=== PATIENT | male | born 1950 | race Caucasian/White ===

== ENCOUNTER 2017-11-18 18:25 | Emergency (ER) | payer OTHER ==
[2017-11-18] MEDS ORDERED: Eye-Stream Solution ONE (19:04)
[2017-11-18] MEDS ORDERED: Fluor-I-Strip/Ful-Flo OP ONE ×2 (19:04→19:21)
[2017-11-18] MEDS ORDERED: TETRACAINE 0.5% STERI-UNIT SOL OP ONE (19:04)
[2017-11-18] MEDS ORDERED: Erythromycin 3.5 GM OPHTH. OP ONE (19:19)
[2017-11-18] MEDS ORDERED: Eye-Stream Solution OP ONE (19:19)
[2017-11-18] MEDS ORDERED: TETRACAINE 0.5% STERI-UNIT SOL OP STA (19:19)
[2017-11-18] MEDS ORDERED: Adacel Vial IM ONE ×2 (19:19→19:30)
[2017-11-18] MEDS ORDERED: Erythromycin 1 GM ONE (19:27)
--- NOTE | 2017-11-18 19:28 | ERPHSYRPT ---
- History of Present Illness Time Seen by Provider: 11/18/17 19:00 Source: patient Exam Limitations: clinical condition Patient Subjective Stated Complaint: Unknown foreign body in right eye. Triage Nursing Assessment: Pt presents to the ED with complaints of unknown foreign body to right eye. Pt states he was outside in the wind approximately 2 hours ago when he felt something hit his eye. Pt denies other complaints. No redness, drainage, or obvious foreign body noted to eye. No distress noted at this time. Physician History: PATIENT WITH A HISTORY OF HYPERTENSION, CORONARY ARTERY DISEASE, WHILE WALKING OUTSIDE IN THE WIND COMPLAINS OF FOREIGN BODY SENSATION TO RIGHT EYE ASSOCIATED TEARING AND SLIGHT PHOTOPHOBIA. DENIES BLURRED VISION OR DIPLOPIA. Timing/Duration: today Location: right eye Severity: mild Apparent Injury: possibly Associated Symptoms: pain, sensitivity to light Visual Assistive Devices: Glasses Chemical Exposure: No Trauma: No Welding Arc/Tanning Bed Exposure: No Allergies/Adverse Reactions: No Known Drug Allergies Allergy (Verified 05/14/16 03:04) Home Medications: Aspirin 81 gm Chew [Baby Aspirin 81 mg Chew] 81 mg PO DAILY 05/14/16 [ History] Benazepril HCl [Lotensin] 20 mg PO DAILY 05/14/16 [History] Clopidogrel Bisulfate [Plavix] 75 mg PO DAILY 05/14/16 [History] Insulin Aspart [NovoLOG Insulin] 10 unit SQ BID 05/14/16 [History] Insulin Glargine [Lantus Insulin] 50 units SQ DAILY 05/14/16 [History] Metoprolol Tartrate 25 mg [Lopressor 25MG Tab] 25 mg PO BID 05/14/16 [ History] Rosuvastatin Calcium [Crestor] 20 mg PO DAILY 05/14/16 [History] Hx Tetanus, Diphtheria Vaccination/Date Given: No Hx Influenza Vaccination/Date Given: No Hx Pneumococcal Vaccination/Date Given: No Immunizations Up to Date: No - Review of Systems Constitutional: No Fever, No Chills Eyes: Eye Pain, Foreign Body Sensation Ears, Nose, & Throat: No Symptoms Respiratory: No Cough, No Dyspnea Cardiac: No Chest Pain, No Edema, No Syncope Abdominal/Gastrointestinal: No Abdominal Pain, No Nausea, No Vomiting, No Diarrhea Genitourinary Symptoms: No Dysuria Musculoskeletal: No Back Pain, No Neck Pain Skin: No Rash Neurological: No Dizziness, No Focal Weakness, No Sensory Changes Psychological: No Symptoms Endocrine: No Symptoms All Other Systems: Reviewed and Negative - Past Medical History Pertinent Past Medical History: Yes Neurological History: No Pertinent History ENT History: No Pertinent History Cardiac History: Coronary Artery Disease, High Cholesterol, Hypertension, Other Respiratory History: No Pertinent History Endocrine Medical History: Diabetes Type II Musculoskeletal History: No Pertinent History GI Medical History: Polyps History: No Pertinent History Psycho-Social History: No Pertinent History Male Reproductive Disorders: No Pertinent History Other Medical History: HEART CATH 03/24/16, OPEN HEART WITH 6 BYPASSES 04/03/16 - Past Surgical History Past Surgical History: Yes Neuro Surgical History: No Pertinent History Cardiac: No Pertinent History, CABG, Cardiac Catheterization Respiratory: Chest Surgery Gastrointestinal: No Pertinent History, Other Genitourinary: No Pertinent History Musculoskeletal: No Pertinent History Male Surgical History: No Pertinent History Other Surgical History: several colonoscopies - Social History Smoking Status: Former smoker How long have you smoked: 1971 Exposure to second hand smoke: No Drug Use: none Patient Lives Alone: No - Nursing Vital Signs Nursing Vital Signs: Initial Vital Signs Temperature 98.0 F 11/18/17 18:37 Pulse Rate 81 11/18/17 18:37 Respiratory Rate 16 11/18/17 18:37 Blood Pressure 137/70 11/18/17 18:37 O2 Sat by Pulse Oximetry 96 11/18/17 18:37 Pain Scale Pain Intensity 8 - Physical Exam Vision Acuity Right Eye: 20/30 Vision Acuity Left Eye: 20/30 Eye Exam: bilateral eye: normal inspection, PERRL, EOMI Ears, Nose, Throat Exam: normal ENT inspection Respiratory Exam: normal breath sounds Cardiovascular Exam: regular rate/rhythm SpO2: 96 Oxygen Delivery: Room Air Ordered Tests: Medication Summary Generic Name Dose Route Start Last Admin Trade Name Freq PRN Reason Stop Dose Admin Fluorescein Sodium 1 mg 11/18/17 19:21 Owoqa-I-Ytvlu/Ful-Ed OP 11/18/17 19:22 STAT ONE Discontinued Medications Generic Name Dose Route Start Last Admin Trade Name Freq PRN Reason Stop Dose Admin Diphtheria/Tetanus/Acell Pertussis 0.5 ml 11/18/17 19:19 Adacel Vial IM 11/18/17 19:20 .ONCE ONE Erythromycin 3.5 gm 11/18/17 19:19 Erythromycin 3.5 Gm Ophth. OP 11/18/17 19:20 STAT ONE Eye Irrigation Solution Confirm 11/18/17 19:04 Eye-Stream Solution Administered 11/18/17 19:05 Dose 30 ml .ROUTE .STK-MED ONE Eye Irrigation Solution 15 ml 11/18/17 19:19 Eye-Stream Solution OP 11/18/17 19:20 STAT ONE Fluorescein Sodium Confirm 11/18/17 19:04 Qyszf-Q-Hoszm/Ful-Ed Administered 11/18/17 19:05 Dose 1 mg OP .STK-MED ONE Tetracaine HCl Confirm 11/18/17 19:04 Tetracaine 0.5% Steri-Unit Iona Administered 11/18/17 19:05 Dose 4 ml OP .STK-MED ONE Tetracaine HCl 4 ml 11/18/17 19:19 Tetracaine 0.5% Steri-Unit Iona OP 11/18/17 19:20 STAT STA - Progress Progress: improved Progress Note: 11/18/17 19:25 APPLICATION TETRACAINE OPHT SOLUTION 3GTTS OD, FLUORESCEIN TO OD, FOREIGN BODY NOTED AT 9-0CLOCK, NO CHEMOSIS OR HYPHEMA, EVERSION OF UPPER EYE LID WITH COTTON SWAB WITH NO EVIDENCE OF FOREIGN BODY, COTTON SWAB FOR REMOVAL FOREIGN BODY OF CORNEA, APPLICATION ERYTHROMYCIN OPHTHALMIC OINTMENT TO OD, ADACEL 0.5ML IM Counseled pt/family regarding: diagnosis, need for follow-up - Departure Time of Disposition: 19:35 Departure Disposition: Home Clinical Impression: REMOVAL FOREIGN BODY RIGHT EYE, CORNEAL ABRASION RIGHT EYE Condition: Stable Critical Care Time: No Referrals: JAROD LEWIS [Primary Care Provider] - Additional Instructions: APPLY ERYTHROMYCIN OPHTHALMIC OINTMENT TO RIGHT EYE 4 TIMES DAILY FOR 5 DAYS. NORCO 5/325 EVERY 4-6 HOURS NEEDED FOR PAIN DISCOMFORT. 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 Prescriptions: Hydrocodone/Acetaminophen [[place] 5-325 Tablet] 1 each PO Q4H PRN PRN #10 tablet MDD 4 PRN Reason: Pain Erythromycin Base 3.5 gm [Erythromycin 3.5 GM OPHTH.] 3.5 gm OP QID #3.5 tube
[2017-11-18 19:53] VITALS: BP 128/65; PULSE 75; O2SAT 95
== END 2017-11-18 19:52 | disposition home or self-care (01) ==
LOC: ED 18:25
DX: T15.01XA Foreign body in cornea, right eye, initial encounter (principal); E11.9 Type 2 diabetes mellitus without complications; Z79.4 Long term (current) use of insulin; Z79.01 Long term (current) use of anticoagulants; Z79.82 Long term (current) use of aspirin; Z79.899 Other long term (current) drug therapy
CPT/HCPCS: 90471; 90715; 99283; 99284; A9270-GY

== ENCOUNTER 2018-01-24 10:16 | Observation (INO) | payer OTHER ==
[2018-01-24] MEDS ORDERED: NITRO-BID 2% UD PACKETS TOP ONE (10:46)
[2018-01-24] MEDS ORDERED: BABY ASPIRIN 81 MG CHEW PO ONE (10:46)
[2018-01-24] MEDS ORDERED: NITRO-BID 2% UD PACKETS ONE (10:58)
[2018-01-24] MEDS ORDERED: BABY ASPIRIN 81 MG CHEW ONE (10:58)
[2018-01-24] MEDS ORDERED: Sodium Chloride 0.9% 1000 ML 1,000 ML ONE (10:58)
[2018-01-24] MEDS ORDERED: Sodium Chloride 0.9% 1000 ML 1,000 ML IV SCH ×2 (11:00→15:15)
[2018-01-24 11:04] LABS: BASOPHIL % 0.6 % (0.0-0.4); Basophil (Absolute #) 0.06 (0-0.4); Eosinophil % 4.7 % (0.00-5.0); Eosinophil (Absolute #) 0.46 (0-0.5); Granulocyte Absolute (ANC) 5.35 (1.4-6.9); Granulocytes % 54.5 % (36.0-66.0); Hematocrit 42.1 % (42-50); Hemoglobin 14.6 gm/dl (12.5-18.0); Lymphocyte (Absolute #) 3.15 (1.0-4.6); Lymphocytes % 32.1 % (24.0-44.0); Mean Cell Volume 92.7 fl (78-100); Mean Corpuscular Hemoglobin 32.2 pg (26-32); Mean Corpuscular Hgb Concent. 34.7 g/dl (32-36); Mean Platelet Volume 11.1 fl (6-9.5); Monocytes % 8.1 % (0.0-12.0); Platelet Count 193 K/mm3 (150-450); Red Blood Count 4.54 M/mm3 (4.1-5.6); Red Cell Distribution Width 12.8 % (11.5-14.0); White Blood Count 9.8 K/mm3 (4.0-10.5)
--- NOTE | 2018-01-24 11:08 | ERPHSYRPT ---
- History of Present Illness Time Seen by Provider: 01/24/18 10:35 Historian: patient Exam Limitations: clinical condition Patient Subjective Stated Complaint: pt reports right sided chest pain increasing with cough or bending over beginning yesterday-deneis diaphoresis denies n/v-states he took a nitro with no relief-cough is nonproductive- persistant for a few months Triage Nursing Assessment: pt pink warm and iwq-hkfiy-zhzffssdza with no difficutly to er room-resp nonlabored-lungs clear-right radial pulse regular and strong Physician History: PATIENT WITH A HISTORY OF TYPE 2 DIABETES, MYOCARDIAL INFARCTION AND CORONARY ARTERY BYPASS X 6 VESSEL 1 YEAR AGO COMPLAINS OF PRODUCTIVE COUGH X 3 MONTHS , ONSET OF RIGHT STERNAL CHEST PAINS UPON COUGHING, MOTION OF TORSO AND INSPIRATION. DENIES FEVER, CHILLS, DYSPNEA, RADIATION OF PAIN TO JAW, ARMS OR BACK. DENIES DIAPHORESIS, PALPITATIONS. Timing/Duration: yesterday Activities at Onset: activity Quality: sharpness, stabbing Location: substernal Chest Pain Radiation: no radiation Severity of Pain-Max: moderate Severity of Pain-Current: moderate Modifying Factors: Improves With: coughing, change in position Associated Symptoms: hurts to breathe (HURTS TO COUGH) Prior Chest Pain/Cardiac Workup: heart attack (CABG 2017) Nitro Today/Relief: no nitro taken today, 0.4 mg x 1 Aspirin Treatment Today: 81 mg x 4, provided by ED Allergies/Adverse Reactions: No Known Drug Allergies Allergy (Verified 01/24/18 10:30) Home Medications: Aspirin 81 gm Chew [Baby Aspirin 81 mg Chew] 81 mg PO DAILY 05/14/16 [ History] Benazepril HCl [Lotensin] 20 mg PO DAILY 05/14/16 [History] Insulin Aspart [NovoLOG Insulin] 10 unit SQ BID 05/14/16 [History] Metoprolol Tartrate 25 mg [Lopressor 25MG Tab] 25 mg PO BID 05/14/16 [ History] Rosuvastatin Calcium [Crestor] 20 mg PO DAILY 05/14/16 [History] Furosemide 40 mg PO DAILY 01/24/18 [History] Gabapentin 300 mg PO DAILY 01/24/18 [History] Insulin Detemir [Levemir] 0 units IN UD 01/24/18 [History] Metformin HCl 500 mg PO DAILY 01/24/18 [History] Potassium Chloride [Klor-Con Sprinkle] 8 mg PO DAILY 01/24/18 [History] Hx Tetanus, Diphtheria Vaccination/Date Given: Yes Hx Influenza Vaccination/Date Given: No Hx Pneumococcal Vaccination/Date Given: No Immunizations Up to Date: Yes - Review of Systems Constitutional: No Fever, No Chills Eyes: No Symptoms Ears, Nose, & Throat: No Symptoms Respiratory: Cough, No Dyspnea Cardiac: Chest Pain, No Edema, No Syncope Abdominal/Gastrointestinal: No Symptoms, No Abdominal Pain, No Nausea, No Vomiting, No Diarrhea Genitourinary Symptoms: No Symptoms, No Dysuria Musculoskeletal: No Symptoms, No Back Pain, No Neck Pain Skin: No Symptoms, No Rash Neurological: No Dizziness, No Focal Weakness, No Sensory Changes Psychological: No Symptoms Endocrine: No Symptoms All Other Systems: Reviewed and Negative - Past Medical History Pertinent Past Medical History: Yes Neurological History: No Pertinent History ENT History: No Pertinent History Cardiac History: Coronary Artery Disease, High Cholesterol, Hypertension, Other Respiratory History: No Pertinent History Endocrine Medical History: Diabetes Type II Musculoskeletal History: No Pertinent History GI Medical History: Polyps History: No Pertinent History Psycho-Social History: No Pertinent History Male Reproductive Disorders: No Pertinent History Other Medical History: HEART CATH 03/24/16, OPEN HEART WITH 6 BYPASSES 04/03/16 - Past Surgical History Past Surgical History: Yes Neuro Surgical History: No Pertinent History Cardiac: No Pertinent History, CABG, Cardiac Catheterization Respiratory: Chest Surgery Gastrointestinal: No Pertinent History, Other Genitourinary: No Pertinent History Musculoskeletal: No Pertinent History Male Surgical History: No Pertinent History Other Surgical History: several colonoscopies - Social History Smoking Status: Former smoker How long have you smoked: 1971 Exposure to second hand smoke: No Drug Use: none Patient Lives Alone: No - Nursing Vital Signs Nursing Vital Signs: Initial Vital Signs Temperature 99.0 F 01/24/18 10:25 Pulse Rate 72 01/24/18 10:25 Respiratory Rate 18 01/24/18 10:25 Blood Pressure 134/73 01/24/18 10:25 O2 Sat by Pulse Oximetry 97 01/24/18 10:25 Pain Scale Pain Intensity 0 - Physical Exam General Appearance: no apparent distress, alert Eye Exam: PERRL/EOMI, eyes nml inspection Ears, Nose, Throat Exam: normal ENT inspection, moist mucous membranes Neck Exam: normal inspection, non-tender, supple, full range of motion Respiratory Exam: normal breath sounds, chest tenderness (RIGHT MEDIAL STERUM T4 -T6), lungs clear, No respiratory distress Cardiovascular Exam: regular rate/rhythm, normal heart sounds Gastrointestinal/Abdomen Exam: soft, normal bowel sounds, No tenderness, No mass Back Exam: normal inspection, No CVA tenderness, No vertebral tenderness Extremity Exam: normal inspection, normal range of motion, pedal edema (+1 PRETIBIAL) Neurologic Exam: alert, oriented x 3, cooperative, normal mood/affect, sensation nml, No motor deficits Skin Exam: normal color, warm, dry SpO2 Interpretation: normal SpO2: 97 Oxygen Delivery: Room Air - Course EKG Interpreted by Me: RATE, Sinus Rhythm, NORMAL AXIS, Right Bundle Branch Block - Radiology Exams Chest X-ray Interpretation: Interpreted by me, Negative, No Infiltrates Ordered Tests: Active Orders 24 hr Category Date Time Status Edging Supervisor STAT Care 01/24/18 10:46 Active EKG-ER Only STAT Care 01/24/18 10:46 Active Oxygen-ED Only NASAL CANNULA 2 lpm Care 01/24/18 10:46 Active CHEST 2 VIEWS (PA AND LAT) Stat Exams 01/24/18 12:01 Taken BLOOD CULTURE Stat Lab 01/24/18 10:56 Ordered CBC W DIFF Stat Lab 01/24/18 10:56 Completed CMP Stat Lab 01/24/18 10:56 Completed D-DIMER QUANTITATION Stat Lab 01/24/18 10:56 Completed PROTIME WITH INR Stat Lab 01/24/18 10:56 Completed TROPONIN Q3H Lab 01/24/18 10:56 Completed TROPONIN Q3H Lab 01/24/18 14:00 Ordered TROPONIN Q3H Lab 01/24/18 17:00 Ordered TROPONIN Q3H Lab 01/24/18 20:00 Ordered TROPONIN Q3H Lab 01/24/18 23:00 Ordered Transfer Order Routine Transfer 01/24/18 Ordered Medication Summary Generic Name Dose Route Start Last Admin Trade Name Freq PRN Reason Stop Dose Admin Sodium Chloride 1,000 mls @ 50 mls/hr 01/24/18 11:00 01/24/18 11:01 Sodium Chloride 0.9% 1000 Ml IV 02/23/18 10:59 50 mls/hr .Q20H THEA Administration Discontinued Medications Generic Name Dose Route Start Last Admin Trade Name Uriah PRN Reason Stop Dose Admin Aspirin 324 mg 01/24/18 10:46 01/24/18 11:00 Baby Aspirin 81 Mg Chew PO 01/24/18 10:47 324 mg STAT ONE Administration Aspirin Confirm 01/24/18 10:58 Baby Aspirin 81 Mg Chew Administered 01/24/18 10:59 Dose 324 mg .ROUTE .STK-MED ONE Ceftriaxone Sodium/Dextrose 1 g in 50 mls @ 100 mls/hr 01/24/18 12:47 12:53 Rocephin 1 Gm-D5w 50 Ml Bag IV 01/24/18 13:16 200 mls/hr STAT STA 200 mls/hr Administration Ceftriaxone Sodium/Dextrose Confirm 01/24/18 12:50 Rocephin 1 Gm-D5w 50 Ml Bag Administered 01/24/18 12:51 Dose 1 g in 50 mls @ ud IV .STK-MED ONE Nitroglycerin 1 gm 01/24/18 10:46 01/24/18 11:01 Nitro-Bid 2% Ud Packets TOP 01/24/18 10:47 1 gm STAT ONE Administration Nitroglycerin Confirm 01/24/18 10:58 Nitro-Bid 2% Ud Packets Administered 01/24/18 10:59 Dose 1 gm .ROUTE .STK-MED ONE Lab/Rad Data: Laboratory Result Diagrams 01/24/18 10:56 01/24/18 10:56 Laboratory Results 01/24/18 01/24/18 01/24/18 Range/Units 10:56 10:56 10:56 WBC (4.0-10.5) K/mm3 RBC (4.1-5.6) M/mm3 Hgb (12.5-18.0) gm/dl Hct (42-50) % MCV (78-100) fl MCH (26-32) pg MCHC (32-36) g/dl RDW (11.5-14.0) % Plt Count (150-450) K/mm3 MPV (6-9.5) fl Gran % (36.0-66.0) % Eos # (Auto) (0-0.5) Absolute Lymphs (auto) (1.0-4.6) Absolute Monos (auto) (0.0-1.3) Lymphocytes % (24.0-44.0) % Monocytes % (0.0-12.0) % Eosinophils % (0.00-5.0) % Basophils % (0.0-0.4) % Absolute Granulocytes (1.4-6.9) Basophils # (0-0.4) PT 11.4 (8.83-12.87) SECONDS INR 0.98 (0.8-3.0) D-Dimer 499 (215-500) ng/mL Sodium 134 L (137-145) mmol/L Potassium 4.5 (3.5-5.1) mmol/L Chloride 101 (98-107) mmol/L Carbon Dioxide 24 (22-30) mmol/L Anion Gap 13.8 (5-15) MEQ/L BUN 21 H (9-20) mg/dL Creatinine 0.93 (0.66-1.25) mg/dL Estimated GFR > 60.0 ML/MIN Glucose 232 H (74-106) mg/dL Calcium 9.7 (8.4-10.2) mg/dL Total Bilirubin 0.50 (0.2-1.3) mg/dL AST 26 (17-59) U/L ALT 23 (0-50) U/L Alkaline Phosphatase 66 (38-126) U/L Troponin I < 0.012 (0.000-0.034) ng/mL Serum Total Protein 7.2 (6.3-8.2) g/dL Albumin 4.1 (3.5-5.0) g/dL 01/24/18 Range/Units 10:56 WBC 9.8 (4.0-10.5) K/mm3 RBC 4.54 (4.1-5.6) M/mm3 Hgb 14.6 (12.5-18.0) gm/dl Hct 42.1 (42-50) % MCV 92.7 (78-100) fl MCH 32.2 H (26-32) pg MCHC 34.7 (32-36) g/dl RDW 12.8 (11.5-14.0) % Plt Count 193 (150-450) K/mm3 MPV 11.1 H (6-9.5) fl Gran % 54.5 (36.0-66.0) % Eos # (Auto) 0.46 (0-0.5) Absolute Lymphs (auto) 3.15 (1.0-4.6) Absolute Monos (auto) 0.80 (0.0-1.3) Lymphocytes % 32.1 (24.0-44.0) % Monocytes % 8.1 (0.0-12.0) % Eosinophils % 4.7 (0.00-5.0) % Basophils % 0.6 (0.0-0.4) % Absolute Granulocytes 5.35 (1.4-6.9) Basophils # 0.06 (0-0.4) PT (8.83-12.87) SECONDS INR (0.8-3.0) D-Dimer (215-500) ng/mL Sodium (137-145) mmol/L Potassium (3.5-5.1) mmol/L Chloride (98-107) mmol/L Carbon Dioxide (22-30) mmol/L Anion Gap (5-15) MEQ/L BUN (9-20) mg/dL Creatinine (0.66-1.25) mg/dL Estimated GFR ML/MIN Glucose (74-106) mg/dL Calcium (8.4-10.2) mg/dL Total Bilirubin (0.2-1.3) mg/dL AST (17-59) U/L ALT (0-50) U/L Alkaline Phosphatase (38-126) U/L Troponin I (0.000-0.034) ng/mL Serum Total Protein (6.3-8.2) g/dL Albumin (3.5-5.0) g/dL - Progress Progress Note: 01/24/18 11:15 ADMINISTERED 4 BABY ASPIRIN, NITROPASTE 1" ANTERIOR CHEST WALL, AFTER 2 SETS OF BLOOD CULTURES ADMINISTERED ROCEPHIN 1GM IVPB 01/24/18 13:44 Discussed with : Anat (DISCUSSED DR LEWIS AT 1320 FOR OBSERVATION) - Departure Time of Disposition: 13:50 Departure Disposition: Observation Clinical Impression: ATYPICAL CHEST PAIN, ACUTE BRONCHITIS Condition: Stable Critical Care Time: No Referrals: JAROD LEWIS [Primary Care Provider] -
[2018-01-24 11:24] LABS: INR 0.98 (0.8-3.0)
[2018-01-24 11:28] LABS: ALBUMIN 4.1 g/dL (3.5-5.0); ALKALINE PHOSPHATASE 66 U/L (38-126); ANION GAP 13.8 MEQ/L (5-15); BLOOD UREA NITROGEN 21 mg/dL (9-20); CHLORIDE 101 mmol/L (98-107); Calcium 9.7 mg/dL (8.4-10.2); Carbon Dioxide 24 mmol/L (22-30); Creatinine 1 0.93 mg/dL (0.66-1.25); Glucose 232 mg/dL (74-106); Potassium 4.5 mmol/L (3.5-5.1); SGOT/AST 26 U/L (17-59); SGPT/ALT 23 U/L (0-50); SODIUM 134 mmol/L (137-145); Total Protein 7.2 g/dL (6.3-8.2)
[2018-01-24] MEDS ORDERED: ROCEPHIN 1 Gm-D5w 50 ml Bag** 1 G/50 ML IVPB IV STA (12:47)
[2018-01-24] MEDS ORDERED: ROCEPHIN 1 Gm-D5w 50 ml Bag** 1 G/50 ML IVPB IV ONE (12:50)
[2018-01-24] MEDS ORDERED: Zofran 4 MG/2 ML VIAL IV PRN (14:38)
[2018-01-24] MEDS ORDERED: MAALOX ES 30 ML UNIT DOSE PO PRN (14:38)
[2018-01-24] MEDS ORDERED: Senokot-S Tablet PO PRN (14:38)
[2018-01-24] MEDS ORDERED: MILK OF MAGNESIA 30 ML PO PRN (14:38)
[2018-01-24] MEDS ORDERED: TYLENOL 325 MG PO PRN (14:38)
[2018-01-24] MEDS ORDERED: Zithromax 500 MG/ 250 ML NaCl Premix 500 MG/250 ML IVPB IV SCH (15:00)
[2018-01-24] MEDS ORDERED: Lantus Insulin ONE (17:39)
[2018-01-24] MEDS ORDERED: Glucophage 500 MG ONE (17:39)
[2018-01-24] MEDS ORDERED: Lantus Insulin SQ ONE (17:39)
[2018-01-24] MEDS: Glucophage 500 MG PO SCH ×2 (17:45→18:10)
[2018-01-24] MEDS ORDERED: NovoLOG Insulin SQ SCH (21:00)
--- NOTE | 2018-01-24 21:25 | XRAY ---
Indication: Cough and pain. Comparison: May 14, 2016. PA/lateral chest remains clear again with previous CABG surgery. Heart is not enlarged. Bony thorax intact. Impression: Stable nonacute chest.
[2018-01-24] MEDS ORDERED: Lasix 40 MG ONE (21:34)
[2018-01-24] MEDS ORDERED: NEURONTIN 300 MG PO SCH (22:00)
[2018-01-24] MEDS ORDERED: Klor Con 10 MEQ PO SCH (22:00)
[2018-01-24] MEDS ORDERED: POTASSIUM CHLORIDE 20 MEQ POWDER FOR ORAL SOL PO SCH (22:00)
[2018-01-24] MEDS ORDERED: Lopressor 25MG Tab PO SCH (22:00)
[2018-01-24] MEDS ORDERED: Lasix 40 MG PO SCH (22:00)
[2018-01-24] MEDS ORDERED: Nitrostat 0.4 MG Tablet SL PRN (22:32)
[2018-01-25 06:04] LABS: Risk Ratio 4.9
[2018-01-25 07:32] VITALS: BP 103/65; PULSE 75; O2SAT 95
[2018-01-25] MEDS: Glucophage 500 MG PO SCH (07:44)
[2018-01-25] MEDS ORDERED: NovoLOG Insulin SQ SCH ×3 (08:00→16:00)
[2018-01-25] MEDS ORDERED: Glucophage 500 MG PO SCH (08:00)
--- NOTE | 2018-01-25 08:34 | PCM.DCORD ---
- Discharge Discharge Date: 01/25/18 Prescriptions: New Amoxicillin/Potassium Clav [Augmentin 875 mg (Amox Tr-K Clv 875-125 mg)] 1 each PO BID 10 Days #20 tablet Continue Benazepril HCl [Lotensin] 20 mg PO DAILY Metoprolol Tartrate 25 mg [Lopressor 25MG Tab] 25 mg PO BID Insulin Aspart [NovoLOG Insulin] 20 unit SQ BID Rosuvastatin Calcium [Crestor] 40 mg PO DAILY Aspirin 81 gm Chew [Baby Aspirin 81 mg Chew] 81 mg PO DAILY Potassium Chloride [Klor-Con Sprinkle] 8 mg PO TID Metformin HCl 500 mg PO BID Insulin Detemir [Levemir] 70 units IN UD Gabapentin 300 mg PO TID Furosemide 40 mg PO DAILY Follow up with: JAROD LEWIS [Primary Care Provider] - 1 Week
[2018-01-25] MEDS ORDERED: ZOCOR 20MG PO SCH (10:00)
[2018-01-25] MEDS ORDERED: BABY ASPIRIN 81 MG CHEW PO SCH (10:00)
[2018-01-25] MEDS ORDERED: Klor Con 10 MEQ PO SCH (10:00)
[2018-01-25] MEDS ORDERED: ROCEPHIN 1 Gm-D5w 50 ml Bag** 1 G/50 ML IVPB IV SCH (10:00)
[2018-01-25] MEDS ORDERED: Lotensin 10 MG PO SCH (10:00)
[2018-01-25] MEDS ORDERED: Ecotrin 325 MG PO SCH (10:00)
[2018-01-25] MEDS ORDERED: NEURONTIN 300 MG PO SCH (10:00)
[2018-01-25] MEDS ORDERED: Lantus Insulin SQ SCH (10:00)
[2018-01-25] MEDS ORDERED: Lasix 40 MG PO SCH ×2 (10:00)
[2018-01-25] MEDS ORDERED: ECOTRIN 81 MG PO SCH (10:00)
--- NOTE | 2018-01-26 15:02 | DS ---
DISCHARGE DIAGNOSES: 1) CHEST WALL PAIN. 2) CORONARY ARTERY DISEASE. HISTORY: The patient is a 67 year-old white male patient who reported to the emergency room with complaints of sharp-type chest pain. He reports that it does not feel like it is his heart but he was concerned. He had been having somewhat of a cough that was minimally productive. He reports he has been rolling around underneath a dump truck trying to get it fixed. He feels that he may have gotten something worked up that way. PAST MEDICAL/SURGICAL HISTORY: Again significant for coronary artery disease with previous coronary artery bypass grafting. He had hyperlipidemia, hypertension, colon polyps and colonoscopy. HOME MEDICATIONS: Currently include aspirin 81 mg a day, Lotensin 20 mg a day, NovoLog insulin 10 units b.i.d. and Levemir insulin 20 in the evening and metoprolol 25 mg b.i.d., Crestor 20 mg a day, Lasix 40 mg daily, gabapentin 300 mg, metformin 500 mg b.i.d. and potassium 8 mEq daily. ALLERGIES: NKDA. PHYSICAL EXAMINATION: Revealed a well nourished, well developed 67 year-old white male patient currently in no distress and denying any pain at the present time. His vital signs on admission showed temperature 99.0F, pulse 72, respiratory rate 18, blood pressure 134/73. O2 saturation 97% on room air. HEENT: Normocephalic, atraumatic. Pupils equal round reactive to light. Extraocular movements intact. Oropharynx is pink and moist. NECK: Supple without lymphadenopathy, thyromegaly or JVD. CHEST: Clear to auscultation with good air movement bilaterally. HEART: Regular rate and rhythm without murmurs, rubs or gallops. ABDOMEN: Soft. No palpable masses. EXTREMITIES: Without clubbing, cyanosis or edema. NEUROLOGIC: The patient is alert and oriented x3. No focal deficits were noted. LAB DATA AND TESTS: Revealed several troponins all less than 0.012. His lipid panel showed HDL 27, LDL 62. His metabolic panel showed nonfasting sugar 232, BUN 21, creatinine 0.93. Electrolytes were normal. Liver enzymes were normal. White blood cell count 9,800, hemoglobin 14.6, PLT count 193,000. D-dimer 499. Chest x-ray was stable and nonacute. EKG showed right bundle branch block pattern, left axis deviation, no acute changes were noted. HOSPITAL COURSE: The patient being admitted to the hospital for monitoring on telemetry, now pain free and having ruled out for myocardial infarction he was felt to be ready for discharge home again. Due to the productive cough and slight chest discomfort he received antibiotics while he was in the hospital of Rocephin and Zithromax and he will be given Augmentin to take home with him with follow up instructions to follow up in the office in one week.
--- NOTE | 2018-01-28 11:18 | ECHO ---
Transthoracic echocardiographic examination and color Doppler was done on 01/25/2018. INDICATION: Chest pain, history of myocardial infarction, history of coronary artery bypass surgery. IMPRESSION: 1) NO REGIONAL WALL MOTION ABNORMALITY. ESTIMATED GLOBAL LEFT VENTRICULAR EJECTION FRACTION 60%. 2) MILD MITRAL REGURGITATION. 3) MILD TRICUSPID REGURGITATION. RIGHT VENTRICULAR SYSTOLIC PRESSURE OF 18 MM OF MERCURY. 4) TRACE PULMONIC INSUFFICIENCY. 5) LEFT ATRIAL ENLARGEMENT. The left ventricle is visualized and demonstrated adequate motion of all the segments. Estimated global left ventricular ejection fraction is 60%. The left ventricular wall thickness is normal. The mitral valve is seen and this opens adequately. There is mild mitral regurgitation. Left atrium is mildly enlarged. The aortic valve is sclerotic. The right side chambers are normal. There is mild tricuspid regurgitation. Right ventricular systolic pressure of 18 mm of Mercury. There is also mild pulmonic insufficiency.
== END 2018-01-25 09:35 | disposition home or self-care (01) ==
LOC: ED 10:16 → MED SURG 14:20
PROVIDERS: ADMIT Family Medicine; ATTEND Family Medicine
DX: R07.89 Other chest pain (principal)
CPT/HCPCS: 36000; 36415; 71046; 80053; 80061; 83721; 84484; 85025; 85379; 85610; 87040; 93005; 93041; 93268; 93306; 96360; 96365; 99285; J0456; J0696; A9270-GY; G0378

== ENCOUNTER 2019-01-08 01:15 | Emergency (ER) | payer OTHER ==
[2019-01-08] MEDS ORDERED: ANTIVERT 25 MG PO ONE (01:54)
--- NOTE | 2019-01-08 01:55 | ERPHSYRPT ---
- History of Present Illness Time Seen by Provider: 01/08/19 01:45 Source: patient Exam Limitations: clinical condition Patient Subjective Stated Complaint: Dizziness Triage Nursing Assessment: Patient ambulated back to ED and transferred self to bed. Patient A+O X 3. Patient's skin pink, warm and dry. Patient complains of dizziness for since this am. Patient states the dizziness has gotten worse as the day went along. Patient states he felt like he was going to "Pass out" Patient's lungs clear a/p carolyn. Heart tones audible. Patient denies pain or discomfort. Physician History: PATIENT WITH A HISTORY OF TYPE 2 DIABETES, MYOCARDIAL INFARCTION, HYPERTENSION, PREVIOUS CORONARY ARTERY BYPASS GRAFT X 6 COMPLAINS OF ONSET OF DIZZINESS 3 HOURS PREVIOUS TO ARRIVAL, EXACERBATED UPON MOTION OF HEAD. DENIES HEADACHE, BLURRED VISION, SLURRED SPEECH, UNSTEADY GAIT, FOCAL NUMBNESS, TINGLING OR WEAKNESS IN EXTREMITIES. STATES THE ROOM SPINNING UPON OCCASION. Timing/Duration: today Severity: moderate Character of Deficits: none Deficits: no difficulties Baseline/Normal Cognition: alert oriented x 3 Current Cognition: alert oriented x 3 Baseline Gait: walks w/o assistance Allergies/Adverse Reactions: No Known Drug Allergies Allergy (Verified 01/08/19 01:35) Home Medications: Aspirin 81 gm Chew [Baby Aspirin 81 mg Chew] 81 mg PO DAILY 05/14/16 [ History] Benazepril HCl [Lotensin] 20 mg PO DAILY 05/14/16 [History] Insulin Aspart [NovoLOG Insulin] 20 unit SQ BID 05/14/16 [History] Metoprolol Tartrate 25 mg [Lopressor 25MG Tab] 25 mg PO BID 05/14/16 [ History] Rosuvastatin Calcium [Crestor] 40 mg PO DAILY 05/14/16 [History] Furosemide 40 mg PO DAILY 01/24/18 [History] Gabapentin 300 mg PO TID 01/24/18 [History] Insulin Detemir [Levemir] 70 units IN UD 01/24/18 [History] Metformin HCl 500 mg PO BID 01/24/18 [History] Potassium Chloride [Klor-Con Sprinkle] 8 mg PO TID 01/24/18 [History] Hx Tetanus, Diphtheria Vaccination/Date Given: Yes Hx Influenza Vaccination/Date Given: Yes Hx Pneumococcal Vaccination/Date Given: Yes Immunizations Up to Date: Yes - Review of Systems Constitutional: No Fever, No Chills Eyes: No Symptoms Ears, Nose, & Throat: No Symptoms Respiratory: No Symptoms, No Cough, No Dyspnea Cardiac: No Symptoms, Orthopnea, No Chest Pain, No Edema, No Syncope Abdominal/Gastrointestinal: No Abdominal Pain, No Nausea, No Vomiting, No Diarrhea Genitourinary Symptoms: No Symptoms, No Dysuria Musculoskeletal: No Symptoms, No Back Pain, No Neck Pain Skin: No Symptoms, No Rash Neurological: Dizziness, No Focal Weakness, No Sensory Changes Psychological: No Symptoms Endocrine: No Symptoms All Other Systems: Reviewed and Negative - Past Medical History Pertinent Past Medical History: Yes Neurological History: No Pertinent History ENT History: No Pertinent History Cardiac History: Coronary Artery Disease, High Cholesterol, Hypertension, Myocardial Infarction (ND), Other Respiratory History: No Pertinent History Endocrine Medical History: Diabetes Type II Musculoskeletal History: No Pertinent History GI Medical History: Polyps History: No Pertinent History Psycho-Social History: No Pertinent History Male Reproductive Disorders: No Pertinent History Other Medical History: HEART CATH 03/24/16, OPEN HEART WITH 6 BYPASSES 04/03/16 - Past Surgical History Past Surgical History: Yes Neuro Surgical History: No Pertinent History Cardiac: No Pertinent History, CABG, Cardiac Catheterization Respiratory: Chest Surgery Gastrointestinal: No Pertinent History, Other Genitourinary: No Pertinent History Musculoskeletal: No Pertinent History Male Surgical History: No Pertinent History Other Surgical History: several colonoscopies - Social History Smoking Status: Former smoker How long have you smoked: 1971 Exposure to second hand smoke: Yes Drug Use: none Patient Lives Alone: No - Nursing Vital Signs Nursing Vital Signs: Initial Vital Signs Pulse Rate 77 01/08/19 01:35 Respiratory Rate 18 01/08/19 01:35 Blood Pressure 150/78 01/08/19 01:35 O2 Sat by Pulse Oximetry 95 01/08/19 01:35 Pain Scale Pain Intensity 0 - [place] Coma Scale Best Eye Response (Monse): (4) open spontaneously Best Verbal Response (Monse): (5) oriented Best Motor Response ([place]): (6) obeys commands Monse Total: 15 - Physical Exam General Appearance: no apparent distress, alert Eye Exam: bilateral eye: PERRL, EOMI Ears, Nose, Throat Exam: normal ENT inspection, moist mucous membranes Neck Exam: normal inspection, non-tender, supple Respiratory: normal breath sounds, lungs clear, airway intact, No respiratory distress Cardiovascular: regular rate/rhythm, No edema Gastrointestinal: soft, No tenderness, No distention Back Exam: normal inspection Extremity Exam: normal inspection, No pedal edema Peripheral Pulses: carotid (R): 2+, carotid (L): 2+, femoral (R): 2+, femoral (L ): 2+, dorsalis-pedis (R): 2+, dorsalis-pedis (L): 2+ Mental Status: alert, oriented x 3 wrapper stemmer hand Exam: tongue midline Coordination/Gait: normal finger to nose, normal gait DTR: bicep (R): 2+, bicep (L): 2+, tricep (R): 2+, tricep (L): 2+, knee (R): 2+ , knee (L): 2+, ankle (R): 2+, ankle (L): 2+ Skin Exam: normal color, warm, dry, No rash SpO2 Interpretation: normal SpO2: 95 Ordered Tests: Active Orders 24 hr Category Date Time Status EKG-ER Only STAT Care 01/08/19 01:52 Active IV Insertion STAT Care 01/08/19 01:52 Active Orthostatic Vital Signs STAT Care 01/08/19 01:52 Active CHEST 1 VIEW (PORTABLE) Stat Exams 01/08/19 01:52 Taken HEAD WITHOUT CONTRAST [CT] Stat Exams 01/08/19 01:52 Taken BMP Stat Lab 01/08/19 02:14 Completed CBC W DIFF Stat Lab 01/08/19 02:14 Completed MAGNESIUM Stat Lab 01/08/19 02:14 Completed Manual Differential NC Stat Lab 01/08/19 02:14 Completed TROPONIN Q3H Lab 01/08/19 02:14 Received TROPONIN Q3H Lab 01/08/19 05:00 Ordered TROPONIN Q3H Lab 01/08/19 08:00 Ordered TROPONIN Q3H Lab 01/08/19 11:00 Ordered TROPONIN Q3H Lab 01/08/19 14:00 Ordered UA W/RFX UR CULTURE Stat Lab 01/08/19 01:52 Ordered Medication Summary Generic Name Dose Route Start Last Admin Trade Name Freq PRN Reason Stop Dose Admin Sodium Chloride 1,000 mls @ 100 mls/hr 01/08/19 02:00 Sodium Chloride 0.9% 1000 Ml IV 02/07/19 01:59 .Q10H THEA Discontinued Medications Generic Name Dose Route Start Last Admin Trade Name Uriah PRN Reason Stop Dose Admin Meclizine HCl 25 mg 01/08/19 01:54 Antivert 25 Mg PO 01/08/19 01:55 STAT ONE Meclizine HCl Confirm 01/08/19 02:33 Antivert 25 Mg Administered 01/08/19 02:34 Dose 25 mg .ROUTE .STK-MED ONE Lab/Rad Data: Laboratory Result Diagrams 01/08/19 02:14 01/08/19 02:14 Laboratory Results 01/08/19 01/08/19 Range/Units 02:14 02:14 WBC 9.0 (4.0-10.5) K/mm3 RBC 4.27 (4.1-5.6) M/mm3 Hgb 13.5 (12.5-18.0) gm/dl Hct 40.4 L (42-50) % MCV 94.6 (78-100) fl MCH 31.6 (26-32) pg MCHC 33.4 (32-36) g/dl RDW 12.4 (11.5-14.0) % Plt Count 193 (150-450) K/mm3 MPV 11.0 H (6-9.5) fl Sodium 138 (137-145) mmol/L Potassium 4.1 (3.5-5.1) mmol/L Chloride 98 (98-107) mmol/L Carbon Dioxide 26 (22-30) mmol/L Anion Gap 18.2 H (5-15) MEQ/L BUN 26 H (9-20) mg/dL Creatinine 1.26 H (0.66-1.25) mg/dL Estimated GFR > 60.0 ML/MIN Glucose 282 H (74-106) mg/dL Calcium 10.0 (8.4-10.2) mg/dL Magnesium 1.9 (1.6-2.3) mg/dL - Progress Progress: improved Counseled pt/family regarding: diagnosis - Departure Departure Disposition: Home Clinical Impression: LACERATION RIGHT MIDDLE FINGER Condition: Stable Critical Care Time: No Referrals: JAROD LEWIS [Primary Care Provider] - Additional Instructions: TYLENOL OR MOTRIN FOR PAIN NEEDED. WATCH FOR SIGNS OF INFECTION, REDNESS, SWELLING OR DRAINAGE. HAVE STITCHES REMOVED AT 10 DAYS.
[2019-01-08] MEDS ORDERED: Sodium Chloride 0.9% 1000 ML 1,000 ML IV SCH (02:00)
[2019-01-08 02:15] LABS: Hematocrit 40.4 % (42-50); Hemoglobin 13.5 gm/dl (12.5-18.0); Mean Cell Volume 94.6 fl (78-100); Mean Corpuscular Hemoglobin 31.6 pg (26-32); Mean Corpuscular Hgb Concent. 33.4 g/dl (32-36); Platelet Count 193 K/mm3 (150-450); Red Blood Count 4.27 M/mm3 (4.1-5.6); Red Cell Distribution Width 12.4 % (11.5-14.0)
[2019-01-08 02:33] LABS: ANION GAP 18.2 MEQ/L (5-15); BLOOD UREA NITROGEN 26 mg/dL (9-20); CHLORIDE 98 mmol/L (98-107); Carbon Dioxide 26 mmol/L (22-30); Creatinine 1 1.26 mg/dL (0.66-1.25); Glucose 282 mg/dL (74-106); MAGNESIUM 1.9 mg/dL (1.6-2.3); Potassium 4.1 mmol/L (3.5-5.1); SODIUM 138 mmol/L (137-145)
[2019-01-08] MEDS ORDERED: Sodium Chloride 0.9% 1000 ML 1,000 ML ONE (02:33)
[2019-01-08] MEDS ORDERED: ANTIVERT 25 MG ONE (02:33)
[2019-01-08 03:46] LABS: Eosinophil 5 % (0.00-3.0); Lymphocytes 41 % (24-44); Neutrophils 54 % (36.-66.); Total Cells Counted 100
[2019-01-08 03:47] VITALS: BP 128/72; PULSE 68; O2SAT 100
[2019-01-08 03:47] LABS: ANISOCYTOSIS 1+; Platelet Estimate NORMAL (NORMAL); Poikilocytosis 1+
--- NOTE | 2019-01-08 08:24 | XRAY ---
Indication: Dyspnea. Comparison: January 24, 2018. Portable apical lordotic chest remains clear. Heart is not enlarged again with CABG surgery. Bony thorax intact again with mild degenerative changes. No new/acute findings.
--- NOTE | 2019-01-08 08:26 | XRAY ---
Indication: Dizziness. Multiple contiguous axial images obtained through the head without contrast. Comparison: None Age-appropriate global atrophy and minimal periventricular degenerative micro-ischemia. No acute intracranial hemorrhage, abnormal extra-axial fluid collection, or mass effect. Fourth ventricle is midline without hydrocephalus. Bony calvarium intact. Minimal mucosal thickening of both ethmoid sinuses and partial opacification of the inferior right mastoid air cells. Impression: 1. Nonacute senile brain. 2. Incidental ethmoid sinus mucosal thickening and partial opacification right mastoid air cells presumed inflammatory. Comment: Preliminary interpretation was made by [facility]. No critical discrepancy. CTDI 67.80
== END 2019-01-08 03:58 | disposition home or self-care (01) ==
LOC: ED 01:15
DX: H83.09 Labyrinthitis, unspecified ear (principal); R42 Dizziness and giddiness; E11.9 Type 2 diabetes mellitus without complications; I10 Essential (primary) hypertension; E78.00 Pure hypercholesterolemia, unspecified; I25.2 Old myocardial infarction; Z95.1 Presence of aortocoronary bypass graft; Z79.899 Other long term (current) drug therapy
CPT/HCPCS: 36000; 36415; 70450; 71045; 80048; 83735; 84484; 85025; 93005; 99284; A9270-GY

== ENCOUNTER 2019-02-18 05:57 | Day surgery (SDC) | payer OTHER ==
[2019-02-18] MEDS ORDERED: Lactated Ringers 1,000 ML IV SCH (06:30)
[2019-02-18] MEDS ORDERED: Ketamine HCl 50 MG/ML ONE (07:19)
[2019-02-18] MEDS ORDERED: DIPRIVAN 200 MG/20 ML IV ONE ×2 (07:19→08:08)
[2019-02-18] MEDS ORDERED: Lactated Ringers 1,000 ML IV ONE (08:20)
--- NOTE | 2019-02-18 08:46 | OP ---
SURGERY DATE/TIME: 02/18/2019 0755 PREOPERATIVE DIAGNOSIS: History of colon polyps. POSTOPERATIVE DIAGNOSIS: Multiple colon polyps. PROCEDURE: Colonoscopy with cold forceps biopsy. SURGEON: Dr. Coppola. ANESTHESIA: MAC. Medications given by anesthesia department. HISTORY: The patient is a 68 year-old white male patient presenting now for colonoscopic examination. He has had several exams in the past. He had colon polyps removed several times. The patient reports it has been several years since his previous examination. He was felt the need to have endoscopic evaluation. He was reappraised of the risks of the procedure including the risk of perforation, phlebitis, untoward reaction to medication, bleeding and missed lesions. The patient verbalized his understanding and desired to have the procedure performed. DESCRIPTION OF PROCEDURE: The patient was given the medications by the anesthesia department. He had continuous pulse oximetry, ECG monitoring, intermittent blood pressure monitoring and tidal CO2 monitoring during the examination. He was placed in the left lateral decubitus position. A digital rectal examination was performed and revealed normal anal sphincter tone, no masses and normal prostate. The flexible Olympus pediatric colonoscope was used to intubate the rectum. A view of the colon was developed. There was noted to be mild amounts of stool throughout the colon. We noted polyps in the cecum, transverse colon and very small polyp in the rectosigmoid area and these were all biopsied and destroyed using cold biopsy technique with multiple passes of biopsy forceps. The scope was removed from the patient who tolerated the procedure well and was sent back to OP recovery in good condition. The prep was noted to be fair.
[2019-02-18 09:15] VITALS: BP 133/68; PULSE 68; O2SAT 97
== END 2019-02-18 09:27 | disposition home or self-care (01) ==
LOC: SDC 05:57
PROVIDERS: ATTEND Family Medicine
DX: Z12.11 Encounter for screening for malignant neoplasm of colon (principal); D12.3 Benign neoplasm of transverse colon; D12.0 Benign neoplasm of cecum; D12.8 Benign neoplasm of rectum; K63.5 Polyp of colon; Z86.010 Personal history of colon polyps; I10 Essential (primary) hypertension; E11.9 Type 2 diabetes mellitus without complications
CPT/HCPCS: 82962; 88305; J2704

== ENCOUNTER 2020-05-30 10:38 | Emergency (ER) | payer OTHER ==
[2020-05-30] MEDS ORDERED: Sodium Chloride 0.9% 1000 ML 1,000 ML IV STA (10:59)
[2020-05-30] MEDS ORDERED: Zofran 4 MG/2 ML VIAL IV ONE (10:59)
[2020-05-30] MEDS ORDERED: Sodium Chloride 0.9% 1000 ML 1,000 ML ONE (11:18)
[2020-05-30] MEDS ORDERED: Zofran 4 MG/2 ML VIAL ONE (11:18)
[2020-05-30 11:24] LABS: Appearance CLEAR (CLEAR); Bilirubin NEGATIVE (NEGATIVE); Blood SMALL Ery/ul (0-5); Glucose >=500 mg/dL (NEGATIVE); Ketones TRACE (NEGATIVE); Leukocyte Esterase NEGATIVE (NEGATIVE); Nitrite NEGATIVE (NEGATIVE); Protein,Urine Dip NEGATIVE (Negative); Specific Gravity 1.024 (1.005-1.025); Urobilinogen NEGATIVE mg/dL (0-1); WBC 0-2 /HPF (0-5)
[2020-05-30 11:28] LABS: Absolute Neutrophil Ct (ANC) 11.95 (1.4-6.9); BASOPHIL % 0.2 % (0.0-0.4); Basophil (Absolute #) 0.03 (0-0.4); Eosinophil (Absolute #) 0 (0-0.5); Hematocrit 45.2 % (42-50); Hemoglobin 14.8 gm/dl (12.5-18.0); Lymphocyte (Absolute #) 0.62 (1.0-4.6); Lymphocytes % 4.7 % (24.0-44.0); Mean Cell Volume 92.6 fl (78-100); Mean Corpuscular Hemoglobin 30.3 pg (26-32); Mean Corpuscular Hgb Concent. 32.7 g/dl (32-36); Mean Platelet Volume 11.4 fl (7.5-11.0); Monocyte (Absolute #) 0.68 (0.0-1.3); Monocytes % 5.1 % (0.0-12.0); Platelet Count 165 K/mm3 (150-450); Red Blood Count 4.88 M/mm3 (4.1-5.6); Red Cell Distribution Width 13.8 % (11.5-14.0); White Blood Count 13.3 K/mm3 (4.0-10.5)
[2020-05-30 11:33] LABS: Bacteria RARE /HPF (NEGATIVE); Epithelial Cells RARE /HPF (FEW); RBC 0-2 /HPF (0-2)
[2020-05-30 11:42] LABS: ALBUMIN 4.2 g/dL (3.5-5.0); ANION GAP 17.4 MEQ/L (5-15); BILIRUBIN,TOTAL 0.8 mg/dL (0.2-1.3); Calcium 9.9 mg/dL (8.4-10.2); Creatinine 1 1.37 mg/dL (0.66-1.25); EST GLOMERULAR FILTRATION RATE 54.9 ML/MIN; Potassium 4.5 mmol/L (3.5-5.1); Total Protein 7.6 g/dL (6.3-8.2)
--- NOTE | 2020-05-30 11:58 | XRAY ---
Indication: Suspect Covid 19. Comparison: January 08, 2019. Portable chest again demonstrates normal heart and lungs with incidental CABG surgery. Bony thorax intact. No new/acute findings.
--- NOTE | 2020-05-30 12:10 | XRAY ---
Indication: Abdomen pain, nausea, vomiting, diarrhea, and fever. Suspect Covid 19. Multiple contiguous axial images obtained through the abdomen and pelvis without contrast as ordered. Comparison: None Study is slightly degraded by respiration artifact. No focal infiltrate, consolidation, or effusion. Tiny right middle lobe calcified granuloma. Heart is not enlarged. Noncontrasted stomach and bowel loops appear nonobstructed. Normal appendix. Scattered sigmoid diverticulosis. No free fluid/air. Proximal right ureter demonstrates at least 2 consecutive calculi, measuring 1.5 cm and 1.6 cm each. Right kidney demonstrate significant hydronephrosis with minimal perinephric stranding consistent with high-grade obstruction. Remaining liver, gallbladder, pancreas, spleen, adrenal glands, left kidney, left ureter, and bladder appear unremarkable for noncontrast exam. There is extensive scattered vascular calcifications throughout including both renal arteries. No AAA. Osseous structures intact with minimal/mild scattered changes throughout the thoracolumbar spine. Incompletely visualized sternotomy wires. Impression: 1. Respiration artifact. 2. Two proximal right ureter calculi as detailed producing high-grade obstruction. 3. Incidental sigmoid diverticulosis, extensive scattered arteriosclerotic disease, and chronic bony findings.
[2020-05-30 12:17] LABS: Ferritin 159 ng/mL (17.9-464); LDH-LACTATE DEHYDROGENASE 182 U/L (120-246)
[2020-05-30 13:02] LABS: INFLUENZA A NEGATIVE (NEGATIVE); INFLUENZA B NEGATIVE (NEGATIVE); RESPIRATORY SYNCTIAL VIRUS NEGATIVE (Negative)
[2020-05-30] MEDS ORDERED: ROCEPHIN 1 Gm-D5w 50 ml Bag** 1 G/50 ML IVPB IV STA (13:14)
[2020-05-30 13:15] VITALS: PULSE 89
--- NOTE | 2020-05-30 13:21 | ERPHSYRPT ---
- History of Present Illness Time Seen by Provider: 05/30/20 11:00 Source: patient, family Exam Limitations: clinical condition Patient Subjective Stated Complaint: PT states "I have been vomiting." Triage Nursing Assessment: Pt presented alert and oriented X 3, skin pwd Pt ambulates with a slow shuffling gait, able to speak in clear full sentences pt in no apparent respiratory distress. Pt has generalized weakness. Physician History: This is a 69-year-old diabetic gentleman with history of hypertension and presents with generalized weakness, flank pain vomiting and diarrhea. Patient has no chest pain he has no new shortness of breath, he denies anterior abdominal pain. Symptoms came on yesterday and he feels more weak today than yesterday. He has no known exposure to any individual with positive COVID-19 t ests. Patient has a history of insulin-dependent diabetes and peripheral neuropathy. Timing/Duration: yesterday Severity: moderate Associated Symptoms: nausea, vomiting, abdominal pain, weakness, other (Diarrhea), No shortness of breath, No chest pain Allergies/Adverse Reactions: No Known Drug Allergies Allergy (Verified 02/18/19 06:35) Home Medications: Aspirin 81 gm Chew [Baby Aspirin 81 mg Chew] 81 mg PO DAILY 05/14/16 [History] Benazepril HCl [Lotensin] 20 mg PO DAILY 05/14/16 [History] Insulin Aspart [NovoLOG Insulin] 20 unit SQ BID 05/14/16 [History] Metoprolol Tartrate 25 mg [Lopressor 25MG Tab] 25 mg PO BID 05/14/16 [History] Rosuvastatin Calcium [Crestor] 40 mg PO DAILY 05/14/16 [History] Furosemide 40 mg PO DAILY 01/24/18 [History] Gabapentin 300 mg PO TID 01/24/18 [History] Insulin Detemir [Levemir] 70 units IN UD 01/24/18 [History] Metformin HCl 500 mg PO BID 01/24/18 [History] Potassium Chloride [Klor-Con Sprinkle] 8 mg PO TID 01/24/18 [History] Empagliflozin [Jardiance] 25 mg PO DAILY 05/30/20 [History] Icosapent Ethyl [Vascepa] 1 cap PO BID 05/30/20 [History] Hx Tetanus, Diphtheria Vaccination/Date Given: No Hx Influenza Vaccination/Date Given: Yes Hx Pneumococcal Vaccination/Date Given: No Immunizations Up to Date: Yes Travel Risk - International Travel Have you traveled outside of the country in past 3 weeks: No - Coronavirus Screening Are you exhibiting any of the following symptoms?: Yes Symptoms: Fever, Vomiting/Diarrhea Close contact with a COVID-19 positive Pt in past 14-21 Days: No - Review of Systems Constitutional: Weakness Eyes: No Symptoms Ears, Nose, & Throat: No Symptoms Respiratory: No Symptoms Cardiac: No Symptoms Abdominal/Gastrointestinal: Nausea, Vomiting, Diarrhea Genitourinary Symptoms: No Symptoms Musculoskeletal: No Symptoms Skin: No Symptoms Neurological: No Symptoms Psychological: No Symptoms Endocrine: No Symptoms Hematologic/Lymphatic: No Symptoms Immunological/Allergic: No Symptoms All Other Systems: Reviewed and Negative - Past Medical History Pertinent Past Medical History: Yes Neurological History: No Pertinent History ENT History: No Pertinent History Cardiac History: Coronary Artery Disease, High Cholesterol, Hypertension, Myocardial Infarction ([place]), Other Respiratory History: No Pertinent History Endocrine Medical History: Diabetes Type II Musculoskeletal History: No Pertinent History GI Medical History: Polyps History: No Pertinent History Psycho-Social History: No Pertinent History Male Reproductive Disorders: No Pertinent History Other Medical History: HEART CATH 03/24/16, OPEN HEART WITH 6 BYPASSES 04/03/16 - Past Surgical History Past Surgical History: Yes Neuro Surgical History: No Pertinent History Cardiac: No Pertinent History, CABG, Cardiac Catheterization Respiratory: No Pertinent History Gastrointestinal: Other Genitourinary: No Pertinent History Musculoskeletal: No Pertinent History Male Surgical History: No Pertinent History Other Surgical History: several colonoscopies - Social History Smoking Status: Former smoker How long have you smoked: 1971 Exposure to second hand smoke: Yes Drug Use: none Patient Lives Alone: No - Nursing Vital Signs Nursing Vital Signs: Initial Vital Signs Temperature 99.1 F 05/30/20 10:49 Pulse Rate 98 H 05/30/20 10:49 Respiratory Rate 22 05/30/20 10:49 Blood Pressure 138/64 05/30/20 10:49 O2 Sat by Pulse Oximetry 93 L 05/30/20 10:49 Pain Scale Pain Intensity 0 - Physical Exam General Appearance: mild distress, alert, obese Eye Exam: PERRL/EOMI, eyes nml inspection Ears, Nose, Throat Exam: normal ENT inspection, moist mucous membranes Neck Exam: normal inspection, non-tender, supple, full range of motion Respiratory Exam: normal breath sounds, lungs clear, airway intact, No chest tenderness, No respiratory distress Cardiovascular Exam: regular rate/rhythm, normal heart sounds, normal peripheral pulses Gastrointestinal/Abdomen Exam: soft, normal bowel sounds, No tenderness Rectal Exam: not done Back Exam: normal inspection, normal range of motion, vertebral tenderness, No C VA tenderness Extremity Exam: normal inspection, normal range of motion, pelvis stable Neurologic Exam: alert, oriented x 3, cooperative, charcoal kiln burner II-XII nml as tested, normal mood/affect, sensation nml Skin Exam: normal color, warm, dry Lymphatic Exam: No adenopathy SpO2 Interpretation: borderline oxygenation SpO2: 90 O2 Delivery: Room Air - Course Nursing assessment & vital signs reviewed: Yes Ordered Tests: Active Orders 24 hr Category Date Time Status EKG-ER Only STAT Care 05/30/20 10:59 Active IV Insertion STAT Care 05/30/20 10:59 Active ABDOMEN AND PELVIS W/0 CONTRAS [CT] Stat Exams 05/30/20 11:00 Completed CHEST 1 VIEW (PORTABLE) Stat Exams 05/30/20 10:59 Completed AMYLASE Stat Lab 05/30/20 11:00 Completed BLOOD CULTURE Stat Lab 05/30/20 12:17 Received CBC W DIFF Stat Lab 05/30/20 11:00 Completed CMP Stat Lab 05/30/20 11:00 Completed Ferritin Stat Lab 05/30/20 11:00 Completed LDH-LACTATE DEHYDROGENASE Stat Lab 05/30/20 11:00 Completed LIPASE Stat Lab 05/30/20 11:00 Completed Lactic Acid Stat Lab 05/30/20 11:12 Completed [place] Screen Stat Lab 05/30/20 11:00 Completed TROPONIN Q3H Lab 05/30/20 11:00 Completed TROPONIN Q3H Lab 05/30/20 14:00 Ordered TROPONIN Q3H Lab 05/30/20 17:00 Ordered TROPONIN Q3H Lab 05/30/20 20:00 Ordered TROPONIN Q3H Lab 05/30/20 23:00 Ordered UA W/RFX UR CULTURE Stat Lab 05/30/20 11:09 Completed Medication Summary Generic Name Dose Route Start Last Admin Trade Name Freq PRN Reason Stop Dose Admin Ceftriaxone Sodium/Dextrose 1 g in 50 mls @ 100 mls/hr 05/30/20 13:14 Rocephin 1 Gm-D5w 50 Ml Bag IV 05/30/20 13:43 STAT STA Discontinued Medications Generic Name Dose Route Start Last Admin Trade Name Uriah PRN Reason Stop Dose Admin Sodium Chloride 1,000 mls @ 999 mls/hr 05/30/20 10:59 05/30/20 11:25 Sodium Chloride 0.9% 1000 Ml IV 05/30/20 11:59 999 mls/hr .Q1H1M STA Administration Sodium Chloride Confirm 05/30/20 11:18 Sodium Chloride 0.9% 1000 Ml Administered 05/30/20 11:19 Dose 1,000 mls @ ud .ROUTE .STK-MED ONE Ondansetron HCl 4 mg 05/30/20 10:59 05/30/20 11:25 Zofran 4 Mg/2 Ml Vial IV 05/30/20 11:00 4 mg STAT ONE Administration Ondansetron HCl Confirm 05/30/20 11:18 Zofran 4 Mg/2 Ml Vial Administered 05/30/20 11:19 Dose 4 mg .ROUTE .STK-MED ONE Lab/Rad Data: Laboratory Result Diagrams 05/30/20 11:00 05/30/20 11:00 Laboratory Results 05/30/20 05/30/20 05/30/20 Range/Units 12:30 11:12 11:09 WBC (4.0-10.5) K/mm3 RBC (4.1-5.6) M/mm3 Hgb (12.5-18.0) gm/dl Hct (42-50) % MCV (78-100) fl MCH (26-32) pg MCHC (32-36) g/dl RDW (11.5-14.0) % Plt Count (150-450) K/mm3 MPV (7.5-11.0) fl Gran % (36.0-66.0) % Eos # (Auto) (0-0.5) Absolute Lymphs (auto) (1.0-4.6) Absolute Monos (auto) (0.0-1.3) Lymphocytes % (24.0-44.0) % Monocytes % (0.0-12.0) % Eosinophils % (0.00-5.0) % Basophils % (0.0-0.4) % Absolute Granulocytes (1.4-6.9) Basophils # (0-0.4) Sodium (137-145) mmol/L Potassium (3.5-5.1) mmol/L Chloride (98-107) mmol/L Carbon Dioxide (22-30) mmol/L Anion Gap (5-15) MEQ/L BUN (9-20) mg/dL Creatinine (0.66-1.25) mg/dL Estimated GFR ML/MIN Glucose (74-106) mg/dL Lactic Acid 3.6 H (0.4-2.0) Calcium (8.4-10.2) mg/dL Ferritin (17.9-464) ng/mL Total Bilirubin (0.2-1.3) mg/dL AST (17-59) U/L ALT (0-50) U/L Alkaline Phosphatase (38-126) U/L Lactate Dehydrogenase (120-246) U/L Troponin I (0.000-0.034) ng/mL Serum Total Protein (6.3-8.2) g/dL Albumin (3.5-5.0) g/dL Amylase (30-110) U/L Lipase (23-300) U/L Urine Color YELLOW (YELLOW) Urine Appearance CLEAR (CLEAR) Urine pH 6.0 (5-6) Ur Specific [employer] Mdl 1.024 (1.005-1.025) Urine Protein NEGATIVE (Negative) Urine Ketones TRACE (NEGATIVE) Urine Blood SMALL (0-5) Patrick/ul Urine Nitrite NEGATIVE (NEGATIVE) Urine Bilirubin NEGATIVE (NEGATIVE) Urine Urobilinogen NEGATIVE (0-1) mg/dL Ur Leukocyte Esterase NEGATIVE (NEGATIVE) Urine WBC (Auto) 0-2 (0-5) /HPF Urine RBC (Auto) 0-2 (0-2) /HPF U Epithel Cells (Auto) RARE (FEW) /HPF Urine Bacteria (Auto) RARE (NEGATIVE) /HPF Urine Culture Reflexed NO (NO) Urine Glucose >=500 (NEGATIVE) mg/dL Monoscreen (Negative) Influenza Type A Ag NEGATIVE (NEGATIVE) Influenza Type B Ag NEGATIVE (NEGATIVE) RSV (PCR) NEGATIVE (Negative) 05/30/20 05/30/20 05/30/20 Range/Units 11:00 11:00 11:00 WBC (4.0-10.5) K/mm3 RBC (4.1-5.6) M/mm3 Hgb (12.5-18.0) gm/dl Hct (42-50) % MCV (78-100) fl MCH (26-32) pg MCHC (32-36) g/dl RDW (11.5-14.0) % Plt Count (150-450) K/mm3 MPV (7.5-11.0) fl Gran % (36.0-66.0) % Eos # (Auto) (0-0.5) Absolute Lymphs (auto) (1.0-4.6) Absolute Monos (auto) (0.0-1.3) Lymphocytes % (24.0-44.0) % Monocytes % (0.0-12.0) % Eosinophils % (0.00-5.0) % Basophils % (0.0-0.4) % Absolute Granulocytes (1.4-6.9) Basophils # (0-0.4) Sodium (137-145) mmol/L Potassium (3.5-5.1) mmol/L Chloride (98-107) mmol/L Carbon Dioxide (22-30) mmol/L Anion Gap (5-15) MEQ/L BUN (9-20) mg/dL Creatinine (0.66-1.25) mg/dL Estimated GFR ML/MIN Glucose (74-106) mg/dL Lactic Acid (0.4-2.0) Calcium (8.4-10.2) mg/dL Ferritin 159 (17.9-464) ng/mL Total Bilirubin (0.2-1.3) mg/dL AST (17-59) U/L ALT (0-50) U/L Alkaline Phosphatase (38-126) U/L Lactate Dehydrogenase 182 (120-246) U/L Troponin I 0.034 (0.000-0.034) ng/mL Serum Total Protein (6.3-8.2) g/dL Albumin (3.5-5.0) g/dL Amylase (30-110) U/L Lipase (23-300) U/L Urine Color (YELLOW) Urine Appearance (CLEAR) Urine pH (5-6) Ur Specific [employer] Mdl (1.005-1.025) Urine Protein (Negative) Urine Ketones (NEGATIVE) Urine Blood (0-5) Patrick/ul Urine Nitrite (NEGATIVE) Urine Bilirubin (NEGATIVE) Urine Urobilinogen (0-1) mg/dL Ur Leukocyte Esterase (NEGATIVE) Urine WBC (Auto) (0-5) /HPF Urine RBC (Auto) (0-2) /HPF U Epithel Cells (Auto) (FEW) /HPF Urine Bacteria (Auto) (NEGATIVE) /HPF Urine Culture Reflexed (NO) Urine Glucose (NEGATIVE) mg/dL Monoscreen NEGATIVE (Negative) Influenza Type A Ag (NEGATIVE) Influenza Type B Ag (NEGATIVE) RSV (PCR) (Negative) 05/30/20 05/30/20 Range/Units 11:00 11:00 WBC 13.3 H (4.0-10.5) K/mm3 RBC 4.88 (4.1-5.6) M/mm3 Hgb 14.8 (12.5-18.0) gm/dl Hct 45.2 (42-50) % MCV 92.6 (78-100) fl MCH 30.3 (26-32) pg MCHC 32.7 (32-36) g/dl RDW 13.8 (11.5-14.0) % Plt Count 165 (150-450) K/mm3 MPV 11.4 H (7.5-11.0) fl Gran % 90.0 H (36.0-66.0) % Eos # (Auto) 0 (0-0.5) Absolute Lymphs (auto) 0.62 L (1.0-4.6) Absolute Monos (auto) 0.68 (0.0-1.3) Lymphocytes % 4.7 L (24.0-44.0) % Monocytes % 5.1 (0.0-12.0) % Eosinophils % 0.0 (0.00-5.0) % Basophils % 0.2 (0.0-0.4) % Absolute Granulocytes 11.95 H (1.4-6.9) Basophils # 0.03 (0-0.4) Sodium 136 L (137-145) mmol/L Potassium 4.5 (3.5-5.1) mmol/L Chloride 103 (98-107) mmol/L Carbon Dioxide 20 L (22-30) mmol/L Anion Gap 17.4 H (5-15) MEQ/L BUN 27 H (9-20) mg/dL Creatinine 1.37 H (0.66-1.25) mg/dL Estimated GFR 54.9 ML/MIN Glucose 304 H (74-106) mg/dL Lactic Acid (0.4-2.0) Calcium 9.9 (8.4-10.2) mg/dL Ferritin (17.9-464) ng/mL Total Bilirubin 0.80 (0.2-1.3) mg/dL AST 27 (17-59) U/L ALT 19 (0-50) U/L Alkaline Phosphatase 69 (38-126) U/L Lactate Dehydrogenase (120-246) U/L Troponin I (0.000-0.034) ng/mL Serum Total Protein 7.6 (6.3-8.2) g/dL Albumin 4.2 (3.5-5.0) g/dL Amylase 39 (30-110) U/L Lipase 47 (23-300) U/L Urine Color (YELLOW) Urine Appearance (CLEAR) Urine pH (5-6) Ur Specific [employer] Mdl (1.005-1.025) Urine Protein (Negative) Urine Ketones (NEGATIVE) Urine Blood (0-5) Patrick/ul Urine Nitrite (NEGATIVE) Urine Bilirubin (NEGATIVE) Urine Urobilinogen (0-1) mg/dL Ur Leukocyte Esterase (NEGATIVE) Urine WBC (Auto) (0-5) /HPF Urine RBC (Auto) (0-2) /HPF U Epithel Cells (Auto) (FEW) /HPF Urine Bacteria (Auto) (NEGATIVE) /HPF Urine Culture Reflexed (NO) Urine Glucose (NEGATIVE) mg/dL Monoscreen (Negative) Influenza Type A Ag (NEGATIVE) Influenza Type B Ag (NEGATIVE) RSV (PCR) (Negative) - Progress Progress: unchanged, re-examined Progress Note: 05/30/20 13:18 Chest x-ray is negative for any acute cardiopulmonary process CAT scan of the abdomen and pelvis without contrast reveals 2 proximal right ureteral calculi producing high-grade obstruction, hydronephrosis on the right side and right perinephric stranding. Medical decision making: This patient has right ureteral calculi x2 producing hydronephrosis and perinephric stranding of the right kidney patient has had some vomiting issues and mild diarrhea. He feels weak. He is in need of urologist. Patient's heart doctor is at [facility]. We contacted [facility] in [facility]. I spoke with emergency room physician Dr. Ray. I reviewed the patient history, condition, laboratory results, x- ray results with him. He accepts the patient in transfer. The patient will be transferred to the emergency department. Dr. Ray also wants a single dose of Rocephin intravenously. Counseled pt/family regarding: lab results, diagnosis, rad results - Departure Departure Disposition: Transfer Clinical Impression: Weakness, Vomiting and diarrhea, Ureteral calculi, Hydronephrosis Condition: Stable Critical Care Time: No Referrals: JAROD LEWIS [Primary Care Provider] -
[2020-05-30] MEDS ORDERED: ROCEPHIN 1 Gm-D5w 50 ml Bag** 1 G/50 ML IVPB IV ONE (13:29)
[2020-05-30 14:05] VITALS: BP 133/80; O2SAT 92
== END 2020-05-30 14:10 | disposition short-term general hospital (02) ==
LOC: ED 10:38
DX: R53.1 Weakness (principal); R11.2 Nausea with vomiting, unspecified; R19.7 Diarrhea, unspecified; N13.2 Hydronephrosis with renal and ureteral calculous obstruction; I10 Essential (primary) hypertension; R10.9 Unspecified abdominal pain; Z79.899 Other long term (current) drug therapy; E78.00 Pure hypercholesterolemia, unspecified; I25.10 Atherosclerotic heart disease of native coronary artery without angina pectoris; E11.9 Type 2 diabetes mellitus without complications; I25.2 Old myocardial infarction; Z95.1 Presence of aortocoronary bypass graft; Z79.4 Long term (current) use of insulin; Z79.84 Long term (current) use of oral hypoglycemic drugs
CPT/HCPCS: 36000; 36415; 71045; 74176; 80053; 81001; 82150; 82728; 83605; 83615; 83690; 84484; 85025; 86308; 87040; 87631; 93005; 96360; 96365; 96374; 99285; U0003; J0696; J2405

== ENCOUNTER 2020-06-03 01:24 | Emergency (ER) | payer MEDICARE, OTHER ==
--- NOTE | 2020-06-03 01:55 | ERPHSYRPT ---
- History of Present Illness Source: patient, family Exam Limitations: no limitations Patient Subjective Stated Complaint: "my to just swelled up." Triage Nursing Assessment: Patient reported having a known diabetic ulcer to the left foot that he is seeking treatment for from Dr. Quesada. Denied seeing wound clinic at this time. no reported pain to the area. No reported recent trauma. patient reported that he noticed the toe was very swollen. Second digit of the left foot with open black/eschar to the volar surface. no noted exudate to the are. Second area noted to the volar aspect of the same digit with serous drainage. no noted odor from the sores. 2nd toe noted to have erythema and edema. Pedal pulses + bilateral Physician History: He has a small ulcer on the tip of his left second toe for the past few weeks. He saw Dr. Benton and had a bx done and has a F/U appt. in 2 days. For the past few days, there has been progressive redness, swelling, and pain in that toe. It started at the tip and now involves the entire toe and is just getting onto the foot. No fever or drainage. He coincidentally developed a kidney (actually then ureteral) stone that he is seeing a urologist for. He has been Rx omnicef abx and has a F/U appt. scheduled. Occurred: days ago (a few) Quality: constant Severity of Pain-Max: moderate Severity of Pain-Current: moderate Lower Extremities Pain: 2nd toe: left Modifying Factors: Improves With: movement (worsens) Associated Symptoms: none, other (painful to walk on) Allergies/Adverse Reactions: No Known Drug Allergies Allergy (Verified 06/03/20 01:31 EST) Home Medications: Aspirin 81 gm Chew [Baby Aspirin 81 mg Chew] 81 mg PO DAILY 05/14/16 [History] Benazepril HCl [Lotensin] 20 mg PO DAILY 05/14/16 [History] Insulin Aspart [NovoLOG Insulin] 20 unit SQ BID 05/14/16 [History] Metoprolol Tartrate 25 mg [Lopressor 25MG Tab] 0.5 tab PO BID 05/14/16 [History] Rosuvastatin Calcium [Crestor] 40 mg PO DAILY 05/14/16 [History] Furosemide 40 mg PO DAILY 01/24/18 [History] Gabapentin 300 mg PO TID 01/24/18 [History] Insulin Detemir [Levemir] 70 units IN UD 01/24/18 [History] Metformin HCl 500 mg PO BID 01/24/18 [History] Potassium Chloride [Klor-Con Sprinkle] 8 mg PO TID 01/24/18 [History] Empagliflozin [Jardiance] 10 mg PO DAILY 05/30/20 [History] Icosapent Ethyl [Vascepa] 1 cap PO BID 05/30/20 [History] Hx Tetanus, Diphtheria Vaccination/Date Given: No Hx Influenza Vaccination/Date Given: Yes Hx Pneumococcal Vaccination/Date Given: No Travel Risk - International Travel Have you traveled outside of the country in past 3 weeks: No - Coronavirus Screening Are you exhibiting any of the following symptoms?: No Close contact with a COVID-19 positive Pt in past 14-21 Days: No - Review of Systems Constitutional: No Symptoms Eyes: No Symptoms Ears, Nose, & Throat: No Symptoms Respiratory: No Symptoms Cardiac: No Symptoms Abdominal/Gastrointestinal: No Symptoms Genitourinary Symptoms: No Symptoms Musculoskeletal: Joint Redness, Joint Pain Skin: Cellulitis Neurological: No Symptoms Psychological: No Symptoms Endocrine: No Symptoms Hematologic/Lymphatic: No Symptoms Immunological/Allergic: No Symptoms All Other Systems: Reviewed and Negative - Past Medical History Pertinent Past Medical History: Yes Neurological History: No Pertinent History ENT History: No Pertinent History Cardiac History: Coronary Artery Disease, High Cholesterol, Hypertension, Myocardial Infarction ([place]), Other Respiratory History: No Pertinent History Endocrine Medical History: Diabetes Type II Musculoskeletal History: No Pertinent History GI Medical History: Polyps History: No Pertinent History Psycho-Social History: No Pertinent History Male Reproductive Disorders: No Pertinent History Other Medical History: HEART CATH 03/24/16, OPEN HEART WITH 6 BYPASSES 04/03/16 - Past Surgical History Past Surgical History: Yes Neuro Surgical History: No Pertinent History Cardiac: No Pertinent History, CABG, Cardiac Catheterization Respiratory: No Pertinent History Gastrointestinal: Other Genitourinary: No Pertinent History Musculoskeletal: No Pertinent History Male Surgical History: No Pertinent History Other Surgical History: several colonoscopies - Social History Smoking Status: Former smoker How long have you smoked: 1972 Exposure to second hand smoke: Yes Drug Use: none Patient Lives Alone: No - Nursing Vital Signs Nursing Vital Signs: Initial Vital Signs Temperature 98.2 F 06/03/20 01:25 EST Pulse Rate 74 06/03/20 01:25 EST Respiratory Rate 20 06/03/20 01:25 EST Blood Pressure 144/73 06/03/20 01:25 EST O2 Sat by Pulse Oximetry 98 06/03/20 01:25 EST Pain Scale Pain Intensity 0 - Physical Exam General Appearance: mild distress Eyes, Ears, Nose, Throat Exam: normal ENT inspection Neck Exam: normal inspection Cardiovascular/Respiratory Exam: chest non-tender, normal breath sounds Gastrointestinal/Abdominal Exam: non-tender Back Exam: other (N/E) Hips Exam: bilateral: non-tender Legs Exam: bilateral leg: non-tender Knees Exam: bilateral knee: non-tender Ankle Exam: bilateral ankle: non-tender Foot Exam: left foot: infection (second toe cellulitis), pain, soft tissue tenderness, swelling Neuro/Tendon Exam: normal sensation, normal motor functions Mental Status Exam: alert, oriented x 3, cooperative Skin Exam: normal color SpO2: 98 - Course Nursing assessment & vital signs reviewed: Yes - Radiology Exams Foot X-ray Interpretation: Interpreted by me, Other (Osteomyelitis tip of distal phalanx left second toe) Ordered Tests: Active Orders 24 hr Category Date Time Status IV Insertion STAT Care 06/03/20 02:06 Completed FOOT (MINIMUM 3 VIEWS) Stat Exams 06/03/20 02:23 Taken BC [BLOOD CULTURE] Stat Lab 06/03/20 02:25 Received CBC W DIFF Stat Lab 06/03/20 02:25 Completed CMP Stat Lab 06/03/20 02:25 Completed Medication Summary Discontinued Medications Generic Name Dose Route Start Last Admin Trade Name Uriah PRN Reason Stop Dose Admin Clindamycin HCl/Dextrose 600 mg in 50 mls @ 100 mls/hr 06/03/20 03:25 06/03/20 04:23 Clindamycin-D5w 600 Mg/50 Ml IV 06/03/20 03:54 Infused STAT STA Infusion Clindamycin HCl/Dextrose Confirm 06/03/20 03:27 Clindamycin-D5w 600 Mg/50 Ml Administered 06/03/20 03:28 Dose 600 mg in 50 mls @ ud IV .STK-MED ONE Morphine Sulfate 4 mg 06/03/20 02:06 06/03/20 02:13 Morphine Sulfate 4 Mg Inj IV 06/03/20 02:07 4 mg STAT ONE Administration Morphine Sulfate Confirm 06/03/20 02:12 Morphine Sulfate 4 Mg Inj Administered 06/03/20 02:13 Dose 4 mg .ROUTE .STK-MED ONE Ondansetron HCl 4 mg 06/03/20 02:06 06/03/20 02:14 Zofran 4 Mg/2 Ml Vial IV 06/03/20 02:07 4 mg STAT ONE Administration Ondansetron HCl Confirm 06/03/20 02:12 Zofran 4 Mg/2 Ml Vial Administered 06/03/20 02:13 Dose 4 mg .ROUTE .STK-MED ONE Lab/Rad Data: Laboratory Result Diagrams 06/03/20 02:25 06/03/20 02:25 Laboratory Results 06/03/20 06/03/20 Range/Units 02:25 02:25 WBC 9.5 (4.0-10.5) K/mm3 RBC 4.60 (4.1-5.6) M/mm3 Hgb 14.1 (12.5-18.0) gm/dl Hct 42.7 (42-50) % MCV 92.8 (78-100) fl MCH 30.7 (26-32) pg MCHC 33.0 (32-36) g/dl RDW 13.8 (11.5-14.0) % Plt Count 171 (150-450) K/mm3 MPV 10.6 (7.5-11.0) fl Gran % 62.0 (36.0-66.0) % Eos # (Auto) 0.31 (0-0.5) Absolute Lymphs (auto) 2.34 (1.0-4.6) Absolute Monos (auto) 0.90 (0.0-1.3) Lymphocytes % 24.6 (24.0-44.0) % Monocytes % 9.5 (0.0-12.0) % Eosinophils % 3.3 (0.00-5.0) % Basophils % 0.6 (0.0-0.4) % Absolute Granulocytes 5.91 (1.4-6.9) Basophils # 0.06 (0-0.4) Sodium 135 L (137-145) mmol/L Potassium 4.1 (3.5-5.1) mmol/L Chloride 103 (98-107) mmol/L Carbon Dioxide 25 (22-30) mmol/L Anion Gap 10.7 (5-15) MEQ/L BUN 23 H (9-20) mg/dL Creatinine 1.09 (0.66-1.25) mg/dL Estimated GFR > 60.0 ML/MIN Glucose 211 H (74-106) mg/dL Calcium 8.8 (8.4-10.2) mg/dL Total Bilirubin 0.60 (0.2-1.3) mg/dL AST 40 (17-59) U/L ALT 32 (0-50) U/L Alkaline Phosphatase 71 (38-126) U/L Serum Total Protein 6.9 (6.3-8.2) g/dL Albumin 3.5 (3.5-5.0) g/dL - Progress Progress: improved Progress Note: 06/03/20 04:19 He has progressive infection in the left second toe. Cellulitis, no abscess. Toe is involved, infection just getting onto the foot. The foot and toes are warm, there is adequate blood flow by palpation. I offered admission to the hospital, would be best option, he does not want admitted, wants to go home. Gave cleocin IV in ED, Rx for cleocin, few norco and zofran. Elevate and warm compresses, see hazardous waste technician tomorrow (Thursday) as planned. Counseled pt/family regarding: lab results, diagnosis, need for follow-up, rad results - Departure Departure Disposition: Home Clinical Impression: Cellulitis of toe of left foot Condition: Stable Critical Care Time: No Referrals: JAROD LEWIS [Primary Care Provider] - Instructions: Cellulitis (Skin Infection), Adult (DC) Additional Instructions: Start the new antibiotic for the toe infection. Elevate the foot and apply warm compresses to the toe when able. See the foot Dr. as planned. Prescriptions: Hydrocodone/APAP 5-325 Tab^^^ [[place] 5-325 Tablet^^^] 1 tab PO Q6HPRN PRN #12 tablet MDD 6 PRN Reason: Pain Ondansetron ODT 4 MG [Zofran Odt 4 mg] 4 mg PO Q6H PRN PRN #12 tab.rapdis PRN Reason: Nausea/Vomiting clindamycin HCL [Cleocin HCl] 300 mg PO TID 10 Days #30 capsule
[2020-06-03] MEDS ORDERED: MORPHINE SULFATE 4 MG INJ ONE (02:12)
[2020-06-03] MEDS ORDERED: Zofran 4 MG/2 ML VIAL ONE (02:12)
[2020-06-03] MEDS: MORPHINE SULFATE 4 MG INJ IV ONE (02:13)
[2020-06-03] MEDS: Zofran 4 MG/2 ML VIAL IV ONE (02:14)
[2020-06-03 02:39] LABS: Absolute Neutrophil Ct (ANC) 5.91 (1.4-6.9); BASOPHIL % 0.6 % (0.0-0.4); Basophil (Absolute #) 0.06 (0-0.4); Eosinophil % 3.3 % (0.00-5.0); Eosinophil (Absolute #) 0.31 (0-0.5); Hematocrit 42.7 % (42-50); Hemoglobin 14.1 gm/dl (12.5-18.0); Lymphocyte (Absolute #) 2.34 (1.0-4.6); Lymphocytes % 24.6 % (24.0-44.0); Mean Cell Volume 92.8 fl (78-100); Mean Corpuscular Hemoglobin 30.7 pg (26-32); Mean Platelet Volume 10.6 fl (7.5-11.0); Monocytes % 9.5 % (0.0-12.0); Platelet Count 171 K/mm3 (150-450); Red Cell Distribution Width 13.8 % (11.5-14.0); White Blood Count 9.5 K/mm3 (4.0-10.5)
[2020-06-03 02:50] LABS: ALBUMIN 3.5 g/dL (3.5-5.0); ALKALINE PHOSPHATASE 71 U/L (38-126); ANION GAP 10.7 MEQ/L (5-15); BLOOD UREA NITROGEN 23 mg/dL (9-20); CHLORIDE 103 mmol/L (98-107); Calcium 8.8 mg/dL (8.4-10.2); Carbon Dioxide 25 mmol/L (22-30); Creatinine 1 1.09 mg/dL (0.66-1.25); EST GLOMERULAR FILTRATION RATE > 60.0 ML/MIN; Glucose 211 mg/dL (74-106); Potassium 4.1 mmol/L (3.5-5.1); SGOT/AST 40 U/L (17-59); SGPT/ALT 32 U/L (0-50); SODIUM 135 mmol/L (137-145); Total Protein 6.9 g/dL (6.3-8.2)
[2020-06-03 03:26] VITALS: PULSE 68
[2020-06-03] MEDS ORDERED: CLINDAMYCIN-D5W 600 MG/50 ML*** 600 MG/50 ML BAG IV ONE (03:27)
[2020-06-03] MEDS: CLINDAMYCIN-D5W 600 MG/50 ML*** 600 MG/50 ML BAG IV STA (03:29)
[2020-06-03 04:30] VITALS: BP 117/65
[2020-06-03 04:42] VITALS: O2SAT 98
--- NOTE | 2020-06-03 09:03 | XRAY ---
Indication: 2nd toe infection. Comparison: May 21, 2020. 3 nonweightbearing views left foot now demonstrates 2nd tuft bony erosive changes with soft tissue swelling favoring cellulitis with osteomyelitis. Remaining foot unchanged again demonstrating moderate 1st MTP bunion deformity, tiny heel spurs, and scattered vascular calcifications.
== END 2020-06-03 04:30 | disposition home or self-care (01) ==
LOC: ED 01:24
DX: L03.032 Cellulitis of left toe (principal); Z79.899 Other long term (current) drug therapy; L89.899 Pressure ulcer of other site, unspecified stage
CPT/HCPCS: 36000; 36415; 73630; 80053; 85025; 87040; 96374; 96375; 99284; J2270; J2405

== ENCOUNTER 2020-06-04 14:16 | Inpatient (IN) | payer MEDICARE, OTHER ==
[2020-06-04] MEDS ORDERED: Sodium Chloride 0.9% 10 ML FLUSH Syringe IV PRN (15:45)
[2020-06-04] MEDS ORDERED: Zofran 4 MG/2 ML VIAL IV PRN (15:55)
[2020-06-04] MEDS ORDERED: NON-FORMULARY ITEM (Hydrocodone/Apap 5-325 Tab^^^ 1 TAB) PO PRN (15:57)
[2020-06-04 15:58] LABS: Hematocrit 43.3 % (42-50); Mean Cell Volume 93.7 fl (78-100); Mean Corpuscular Hemoglobin 30.3 pg (26-32); Mean Corpuscular Hgb Concent. 32.3 g/dl (32-36); Mean Platelet Volume 10.8 fl (7.5-11.0); Platelet Count 239 K/mm3 (150-450); Red Blood Count 4.62 M/mm3 (4.1-5.6); Red Cell Distribution Width 13.8 % (11.5-14.0); White Blood Count 11.6 K/mm3 (4.0-10.5)
--- NOTE | 2020-06-04 16:09 | PCM.CONS ---
Podiatry HPI - Consult Date of Consultation Date: 06/04/20 Reason for Consult: Osteomyelitis left second digit, cellulitis left foot Consulting Provider: LISA BELL DPM - [facility] History of Present Illness: Yuli is a very pleasant 69-year-old male who presents today with second toe infection of the left foot due to a Longstanding ulceration tht was discovered on his initial visit 2 weeks ago. He was to follow up for non invasive vascular studies prior to initiating wound care however missed his appointment brenda on may 31 due to admission and surgical intervention at [facility] for surgical intervention for nephrolithiasis. While in the hospital he contracted an infection of the left second toe ulcer site. He states that the ulcer was never debrided or cultured in the time there however he was placed on Clindamycin and cefdinir for Postoperative prophylaxis and the second toe infection. He presented to the emergency department here at [facility] following discharge due to the pain tenderness swelling and reddness of the toe and foot and an x-ray was taken demonstrating some errosion of the distal phalanx of the right 2nd toe. He presents today with the second toe red hot swollen and infected with cellulitis extending to the dorsal aspect of the left midfoot. He currently denies any constitutional symptoms of infection. He denies any other pedal complaints at this time. Medications & Allergies Home Medications: Home Medication List Aspirin 81 gm Chew [Baby Aspirin 81 mg Chew] 81 mg PO DAILY 05/14/16 [History Confirmed 06/04/20] Benazepril HCl [Lotensin] 20 mg PO DAILY 05/14/16 [History Confirmed 06/04/20] Insulin Aspart [NovoLOG Insulin] 20 unit SQ BID 05/14/16 [History Confirmed 06/04/20] Metoprolol Tartrate 25 mg [Lopressor 25MG Tab] 12.5 tab PO BID 05/14/16 [History Confirmed 06/04/20] Rosuvastatin Calcium [Crestor] 40 mg PO DAILY 05/14/16 [History Confirmed 06/04/20] Gabapentin 300 mg PO TID 01/24/18 [History Confirmed 06/04/20] Insulin Detemir [Levemir] 70 units IN UD 01/24/18 [History Confirmed 06/04/20] Metformin HCl 500 mg PO BID 01/24/18 [History Confirmed 06/04/20] Potassium Chloride [Klor-Con Sprinkle] 8 mg PO TID 01/24/18 [History Confirmed 06/04/20] Empagliflozin [Jardiance] 10 mg PO DAILY 05/30/20 [History Confirmed 06/04/20] Icosapent Ethyl [Vascepa] 1 cap PO BID 05/30/20 [History Confirmed 06/04/20] Hydrocodone/APAP 5-325 Tab^^^ [[place] 5-325 Tablet^^^] 1 tab PO Q6HPRN PRN #12 tablet MDD 6 06/03/20 [Rx Confirmed 06/04/20] Ondansetron ODT 4 MG [Zofran Odt 4 mg] 4 mg PO Q6H PRN PRN #12 tab.rapdis 06/03/20 [Rx Confirmed 06/04/20] clindamycin HCL [Cleocin HCl] 300 mg PO TID 10 Days #30 capsule 06/03/20 [Rx Confirmed 06/04/20] Cefdinir 300 mg PO BID 06/04/20 [History Confirmed 06/04/20] Allergies/Adverse Reactions: Allergies Allergy/AdvReac Type Severity Reaction Status Date / Time No Known Drug Allergies Allergy Verified 06/03/20 01:31 EST - Past Medical History Past Medical History: Yes Neurological History: No Pertinent History ENT History: No Pertinent History Cardiac History: Coronary Artery Disease, High Cholesterol, Hypertension, Myocardial Infarction (ME), Other Respiratory History: No Pertinent History Endocrine Medical History: Diabetes Type II Musculoskelatal History: No Pertinent History GI Medical History: Polyps History: No Pertinent History Pyscho-Social History: No Pertinent History Male Reproductive Disorders: No Pertinent History Comment: HEART CATH 03/24/16, OPEN HEART WITH 6 BYPASSES 04/03/16 - Past Surgical History Past Surgical History: Yes Neuro Surgical History: No Pertinent History Cardiac History: No Pertinent History, CABG, Cardiac Catheterization Respiratory Surgery: No Pertinent History GI Surgical History: Other Genitourinary Surgical Hx: Other Musculskeletal Surgical Hx: No Pertinent History Male Surgical History: No Pertinent History Other Surgical History: several colonoscopies, kidney stenting - Social History Smoking Status: Former smoker How long have you smoked: 1971 Exposure to second hand smoke: Yes Alcohol: None Drug Use: none Physical Exam - Narrative Narrative Physical Exam: Podiatry Physical Exam: Vascular: DP and PT pulses non-palpable b/l. CFT <5 seconds b/l. Skin temperature warm to cool from the proximal tibial tuberosity to distal toes b/l. Absent pedal hair growth b/l. Varicosities noted to lower legs b/l. Positive for cellulitis to the dorsal aspect of the left midfoot and the second digits circumferentially. There is no proximal streaking or lymphangitis noted. No lymphadenopathy on palpation of the popliteal or inguinal lymph nodes. Neurological: Protective sensation diminished 5/10 on the right and 5/10 on the left as indicated with Cross Anchor-Rajiv 5.07 monofilament b/l. Lower extremity temperature sensation diminished b/l. Evidence of intrinsic muscle atrophy Dermatological: Trophic changes to the skin. Skin is xerotic and scaly in nature. Turgor is rigid. No cicatrix noted. No open lesions noted. Toenails 1-5 b/l are abnormal in length, thickness and are discolored yellow. They are dystrophic crumbling and incurvated. Webspaces are clean, dry and intact b/l.There is a hyperkeratotic lesion noted to the second digit of the left foot.Second digit of the left foot red hot swollen with cellulitis extending to the midfoot Musculoskeletal: Muscle strength is intact for all muscle groups bilateral. Rectus foot architecture noted. Restricted range of motion to the ankle and the subtalar joints bilaterally the midtarsal joint is within normal limits. First metatarsophalangeal joint with some hallux limitus. There is no pain on palpation of the periwound area. He has normal gait and ace. Patient is ambulating in a pair of athletic shoes. There are digital contractures of digits 234 and 5 of the left and right lower extremity with a plantar flexor he contracture at the proximal interphalangeal joint of digits 2 3 and 4 and an adductovarus rotation with digits 4 and 5. Wound Care / Suspicious Lesions: Wound #1 Location Hyperkeratotic lesion post debridement second digit left foot Size - 0.8 x 0.6 x 0.1 cm Appearance - 60% fibrotic 40% granular S/S of infection - None, no erythema, no drainage Additional - Negative for undermining, negative probe to bone, probes to subcutaneous tissue. Imaging: AP MO and LAT shows normal soft tissue planes. No evidence of soft tissue emphysema. There is lysis of the distal tuft of the distal phalanx of the second toe left foot. No soft tissue emphysema. Soft tissue planes are within normal limits. Calcifications of the first common metatarsal artery Assessment/Plan (1) Osteomyelitis due to type 2 diabetes mellitus Current Visit: Yes Status: Acute Code(s): E11.69 - TYPE 2 DIABETES MELLITUS WITH OTHER SPECIFIED COMPLICATION; M86.9 - OSTEOMYELITIS, UNSPECIFIED (2) Cellulitis of toe of left foot Current Visit: No Status: Acute Assessment & Plan: Cellulitis left foot patient examination and evaluation. for medical management Hold IV antibiotics until after procedure CBC with differential, CMP, ESR, CRP, blood cultures, bone cultures and wound cultures will be taken intraoperatively tomorrow We will plan for possible placement of peripherally inserted central catheter We will plan for Clinda Cipro following procedure Patient n.p.o. after midnight Surgical consent to be signed and in chart prior to surgical intervention. Consent to read left foot incision and drainage, second toe open amputation. PT OT consult treat and eval Case management Postoperative pain: [place] 5 325 mg Thank you for the consult Code(s): L03.032 - CELLULITIS OF LEFT TOE
[2020-06-04] MEDS: NEURONTIN 300 MG PO SCH ×2 (16:18→21:17)
[2020-06-04 16:37] LABS: ALBUMIN 3.6 g/dL (3.5-5.0); ALKALINE PHOSPHATASE 82 U/L (38-126); ANION GAP 10.1 MEQ/L (5-15); BLOOD UREA NITROGEN 15 mg/dL (9-20); CHLORIDE 104 mmol/L (98-107); Calcium 9.3 mg/dL (8.4-10.2); Carbon Dioxide 27 mmol/L (22-30); Creatinine 1 0.98 mg/dL (0.66-1.25); EST GLOMERULAR FILTRATION RATE > 60.0 ML/MIN; Glucose 151 mg/dL (74-106); Potassium 4.2 mmol/L (3.5-5.1); SGOT/AST 37 U/L (17-59); SGPT/ALT 28 U/L (0-50); SODIUM 136 mmol/L (137-145); Total Protein 7.3 g/dL (6.3-8.2)
[2020-06-04] MEDS: NORCO 5/325 MG PO PRN (19:53)
[2020-06-04] MEDS: Klor Con 10 MEQ PO SCH (21:17)
[2020-06-04] MEDS: Lopressor 25MG Tab PO SCH (21:17)
[2020-06-04] MEDS: Sodium Chloride 0.9% 10 ML FLUSH Syringe IV SCH (21:18)
[2020-06-04] MEDS: HUMALOG SQ PRN (21:43)
[2020-06-04] MEDS ORDERED: POTASSIUM CHLORIDE PO SCH (22:00)
[2020-06-04 22:19] LABS: BAND 2 % (0.0-2.0); Eosinophil 3 % (0.00-3.0); Lymphocytes 26 % (24-44); Monocyte 5 % (0.0-12.0); Neutrophils 64 % (36.-66.); Platelet Estimate NORMAL (NORMAL); Total Cells Counted 100
[2020-06-05] MEDS: Sodium Chloride 0.9% 10 ML FLUSH Syringe IV SCH ×3 (04:13→22:20)
[2020-06-05] MEDS: NORCO 5/325 MG PO PRN ×3 (04:13→22:19)
[2020-06-05] MEDS ORDERED: BUPIVACAINE 0.5% VIAL IJ ONE (06:45)
[2020-06-05] MEDS ORDERED: XYLOCAINE 1% HCL 20 ML MDV ONE (06:45)
[2020-06-05] MEDS ORDERED: Lactated Ringers 1,000 ML IV ONE (06:45)
[2020-06-05] MEDS ORDERED: Lactated Ringers 1,000 ML IV SCH (07:30)
[2020-06-05] MEDS ORDERED: D50W 50 ml Abboject IV PRN (07:37)
[2020-06-05] MEDS: Lantus Insulin SQ SCH (08:52)
[2020-06-05] MEDS: Lopressor 25MG Tab PO SCH ×2 (09:06→22:18)
[2020-06-05] MEDS: Klor Con 10 MEQ PO SCH ×3 (09:06→22:18)
[2020-06-05] MEDS: NEURONTIN 300 MG PO SCH ×3 (09:06→22:18)
[2020-06-05] MEDS: Lotensin 10 MG PO SCH (09:07)
[2020-06-05] MEDS ORDERED: NON-FORMULARY ITEM (Benazepril Hcl [Lotensin] 20 MG) PO SCH (10:00)
[2020-06-05] MEDS ORDERED: NON-FORMULARY ITEM (Rosuvastatin Calcium [Crestor] 40 MG) PO SCH (10:00)
--- NOTE | 2020-06-05 11:35 | XRAY ---
Indication: Peripheral vascular disease. Diabetes type 2. Smoking history. Two-dimensional sonogram and color Doppler imaging of the major arteries of the left and right leg was performed. Comparison: None Examination of the right leg demonstrates mild arteriosclerosis disease in the common femoral, distal superficial femoral, and popliteal arteries. Moderate scattered arteriosclerotic disease seen in the posterior tibial and dorsal pedal arteries. No critical stenosis/obstruction. Deep femoral and mid to proximal superficial femoral artery widely patent. Arterial waveforms are multiphasic throughout the right leg. Right arm brachial pressure is 139. Right ankle pressure is 113. Ankle-brachial index is 0.81 favoring mild ischemic disease. Examination of the left leg demonstrate mild/moderate scattered arteriosclerotic disease in the common femoral, deep femoral, distal superficial femoral, popliteal, posterior tibial, and dorsal pedal arteries. No critical stenosis/obstruction. Mid to proximal superficial femoral artery widely patent. Arterial waveforms are multiphasic in the common femoral, superficial femoral, deep femoral arteries. Arterial waveforms are monophasic in the popliteal, posterior tibial, and dorsal pedal arteries. Left arm brachial pressure is 130. The left ankle pressure is 91. Ankle-brachial index is 0.65 favoring moderate ischemic disease. Impression: 1. Mild/moderate scattered arteriosclerotic disease bilaterally. Greatest extent in the left lower leg. 2. Left LOUIS 0.65 favors moderate ischemic disease. 3. Right LOUIS 0.81 favors mild ischemic disease. 4. CTA abdominal aorta with bilateral runoff may yield further information.
[2020-06-05] MEDS ORDERED: Versed 2 MG/2 ML Injection ONE (11:39)
[2020-06-05] MEDS ORDERED: SUBLIMAZE 100 MCG/2 ML ONE (11:46)
[2020-06-05] MEDS ORDERED: VANCOMYCIN 1 GRAM/200 ML BAG 1 GM/200 ML PIGGYBACK IV ONE (12:15)
--- NOTE | 2020-06-05 13:56 | HP ---
CHIEF COMPLAINT: Cellulitis and osteomyelitis of the second toe of the left foot. HISTORY OF PRESENT ILLNESS: The patient is a 69 year old white male patient who had been sick recently with kidney stones. He had been at [facility] where he received a stent and now they say he needs a lithotripsy due to the size of the stone. He while there began having problems with left toe pain. The patient had told the nurse about it but they pretty well ignored him. Over the past days, he has only been three days out since admission there and now has active osteomyelitis. The patient has a history of diabetes mellitus type II on insulin. He takes cholesterol medicine, hydrocodone for pain. He has been on Cefdinir antibiotic twice. PHYSICAL EXAMINATION: Revealed a well-nourished, well-developed 69 year old white male patient who is in moderate distress secondary to foot and kidney problems. His vital signs showed a temperature of 98.3F, pulse 70, respiratory rate 16 and blood pressure 134/65. O2 saturation 95%. HEENT: Normocephalic, atraumatic. Pupils equal round reactive to light. Extraocular movements intact. Oropharynx is pink and moist. NECK: Supple without lymphadenopathy, thyromegaly or JVD. CHEST: Clear to auscultation. HEART: Regular rate and rhythm. ABDOMEN: Soft. No palpable masses. EXTREMITIES: Showed left second toe that is swollen and becoming dark over the PIP joint of that foot. He has had previous x-rays showing the likelihood of osteomyelitis and cellulitis. LAB DATA AND TESTS: The patient's laboratory studies show the sed rate is elevated at 63. White blood cell count 11.6, hemoglobin 14.0, PLT count 239,000. His A1C is 9.15. His fasting sugar is 151, BUN 15, creatinine 0.98. Electrolytes are normal. Liver enzymes were normal. ASSESSMENT: A patient with osteomyelitis of second left toe. Roller Skate Repairer, Dr. Benton, has seen the patient and taking him for surgery now. He will continue to be on IV antibiotics afterwards and continue his medications from home which currently include rosuvastatin 40 mg a day, gabapentin 300 mg t.i.d., Levemir 70 units in the evening, Metformin 500 mg b.i.d., potassium 80 mEq t.i.d., Jardiance 10 mg daily, Vascepa 1 capsule b.i.d., hydrocodone 5/325 every six hours PRN pain, Zofran for nausea, Clindamycin 300 mg t.i.d., Cefdinir 300 mg twice a day.
[2020-06-05] MEDS ORDERED: Heparin 1000 units/ml (10 Ml vial) 1,000 U in Sodium Chloride 0.9% 500 ML 500 ML IV ONE (14:54)
--- NOTE | 2020-06-05 15:25 | XRAY ---
Indication: Ultrasound guidance for PICC line placement. Initial sonographic imaging of the right upper extremity was performed for localization of patent veins. A patent basilic vein identified above the elbow. Ultrasound guidance was then used for PICC line insertion. Full PICC line insertion is reported separately.
--- NOTE | 2020-06-05 15:26 | XRAY ---
Indication: Long-term IV access and therapy for left toe cellulitis/osteomyelitis. Informed consent obtained. Patient was placed on the fluoroscopic table in a supine position. Initial sonographic imaging of the right upper extremity was performed for localization of patent veins. The right upper extremity was then prepped and draped in sterile fashion. Tourniquet applied. 1% lidocaine plain used for local anesthesia. Using ultrasound guidance and a micropuncture needle, a basilic vein above the elbow was successfully percutaneously cannulized. A floppy tip 0.018 guidewire inserted. Tourniquet released. Needle was exchanged for a 5 Sudanese dilator peel-away sheath catheter. Ultimately a 5 Sudanese double-lumen PICC line was inserted over a longer 0.018 guidewire with the tip positioned in the distal SVC using fluoroscopic guidance. Guidewire removed. Both ports flushed with heparinized saline. Catheter was secured. Postoperative instructions and orders given. Patient discharged in good condition. Impression: Technically successful right upper extremity PICC line placement using ultrasound and fluoroscopic guidance. No immediate complications. Approximately 3 cc blood loss. Approximately 0.1 minute of fluoroscopy used. Catheter length is 46 cm.
[2020-06-05] MEDS: HUMALOG SQ PRN (18:39)
[2020-06-05] MEDS: Sodium Chloride 0.9% 1000 ML 1,000 ML IV SCH ×2 (19:41→23:34)
[2020-06-05] MEDS: ZOCOR 20MG PO SCH (22:18)
[2020-06-06] MEDS: Sodium Chloride 0.9% 10 ML FLUSH Syringe IV SCH ×2 (06:06→13:25)
[2020-06-06] MEDS: HUMALOG SQ PRN ×4 (08:10→21:36)
[2020-06-06] MEDS: NORCO 5/325 MG PO PRN ×2 (08:10→13:25)
--- NOTE | 2020-06-06 08:29 | OP ---
SURGERY DATE: 06/05/2020 1138 INDICATION FOR SURGERY: Yuli is a very pleasant 69 year old white male who presented to my office with a second toe infection of the left foot due to diabetes and a subsequent ulcer that was treated two weeks ago. He was supposed to follow up for another appointment on 05/31/2020 for LOUIS and Doppler on 05/31/2020. However, he was admitted to [facility] where he had surgical intervention and stents placed due to nephrolithiasis. While he was in the hospital he developed an infection of his left second toe ulcer. He states that the ulcer was never debrided or cultured at that time. However, he was placed on Clindamycin and Cefdinir for postoperative prophylaxis for the nephrolithiasis as well as the second toe infection respectively. In the time of his admission, he was not seen by a vascular surgeon or a senior it architect. He states on his admission yesterday that his second toe became red, hot, swollen and infected as well as there was a cellulitis that was extending to the dorsal aspect of his midfoot. He presented to the emergency department the day prior to and x-rays were taken demonstrating that there were indications of osteomyelitis of the distal tuft of that toe and the pain was severe enough that he was recommended follow up at this time. He currently denies any constitutional symptoms of infection. He was given the option of having a bone biopsy taken and being placed on a course of six weeks IV antibiotic. However, he understands that this was no guarantee. As an alternative I told him and his that amputation may be a quicker route for definitive surgical intervention to which they agreed to the plan. At this time the patient agreed to the surgical procedure of an amputation, incision and drainage of the left foot. He understands all risks, benefits and complications of the procedure as described in the surgical consent that was signed by him the day prior to surgical intervention. PREOPERATIVE DIAGNOSES: 1) Cellulitis left second toe. 2) Abscess left foot. 3) Osteomyelitis left foot. POSTOPERATIVE DIAGNOSES: 1) Cellulitis left second toe. 2) Abscess left foot. 3) Osteomyelitis left foot. PROCEDURES: 1) Amputation of second toe. 2) Incision and drainage of left foot. SURGEON: Chetan Black DPM. ANTIQUE FURNITURE REPAIRER: None. ANESTHESIA: MAC plus local. HEMOSTASIS: Pressure. ESTIMATED BLOOD LOSS: Less than 5 cc. MATERIALS: 3-0 Nylon. INJECTABLES: 10 cc of 1:1 mixture of 0.5% bupivacaine plain and 1% lidocaine plain. DESCRIPTION OF PROCEDURE AND FINDINGS: Following adequate presurgical assessment by the anesthesia care team, the patient was brought into the OR and placed on the OR table in the supine position. At this time MAC sedation was applied to the patient and the left foot was prepped and draped in the typical sterile fashion and lowered onto the surgical field. At this time attention was directed to the second digit of the left foot where a 15 blade was utilized to make a vertical fish mouth incision surrounding the toe with the blade perpendicular to the skin ellipsing the toe in total and extending dorsal and plantarly in a linear-type fashion this incision was made down to bone. At this time the second toe was disarticulated utilizing the 15 blade. Following disarticulation of the toe on the back table, clean margins were taken from the base of the proximal phalanx and the remaining toe was split longitudinally in half to be sent for pathological and microbiological assessment. At this time the samples were handed off the surgical field. At this time copious amounts of sterile saline were utilized to flush the incision site and assess for any tracking. There was a small tracking abscess up the extensor tendon track which stopped approximately 2 cm proximal to the second metatarsal head this tendon was resected out as well as the flexor tendon at the plantar aspect of the second metatarsal. At this time copious amounts of sterile saline were then utilized to flush the site again. Any devitalized tissue at the skin edges was removed utilizing a pair of dissection scissors. At this time the incision site was deemed to be adequate as far as healthy tissue and no remaining infection appeared to be present. At this time a 3-0 Nylon was utilized to coapt the dorsal and plantar aspect of the incision. However, there was a small defect that was left open in order to pack open until the infection is completely cleared this was packed open with 0.5 inch Iodoform packing. Betadine was painted to the incision sites as well as the surrounding wound. Adaptic was placed over the wound which was covered with 4x4 and secured with a 4 inch Kerlix and a 4 inch GABE. At this time the patient was reversed from the anesthesia and handled the procedure well without complication. He was returned to the postoperative anesthesia care unit with vital signs stable and vascular status intact. The patient handled the anesthesia and the procedure without complication and was returned to his bed on the floor. Postoperative orders as follows: 1) Keep dressing clean, dry and intact to the left lower extremity. 2) Partial weight bearing to the left heel. 3) Full weight bearing to the right foot. 4) Elevate operative extremity above the level of the heart to reduce inflammation. 5) No ice to the extremities secondary to his diagnosed peripheral vascular disorder. 6) Postoperative pain control: Hydrocodone/acetaminophen 5/325 mg every four to six hours for breakthrough pain, alternate with ibuprofen 600 mg every six hours. 7) Postoperative infection prophylaxis: IV Vancomycin every twelve hours. 8) Postoperative deep venous thrombosis prophylaxis: None. 9) Will follow closely on floor. 10) Transfer to floor.
[2020-06-06] MEDS: Klor Con 10 MEQ PO SCH ×3 (10:04→21:28)
[2020-06-06] MEDS: Lopressor 25MG Tab PO SCH ×2 (10:05→21:28)
[2020-06-06] MEDS: Lantus Insulin SQ SCH (10:05)
[2020-06-06] MEDS: NEURONTIN 300 MG PO SCH ×3 (10:06→21:28)
[2020-06-06] MEDS: Lotensin 10 MG PO SCH (10:10)
[2020-06-06] MEDS: VANCOMYCIN 2 GRAM/400 ML BAG 2 GM/400 ML PIGGYBACK IV SCH (10:23)
--- NOTE | 2020-06-06 13:22 | PCM.NOTE ---
Podiatry Narrative Note Podiatry Narrative Note: Subjective: Patient seen at bedside this afternoon with nearby. Patient is in good health however he is restless at this time and wants to be discharged from the hospital at this time. He currently denies any constitutional symptoms of infection. He denies any other pedal complaints at this time. Physical exam: Vascular status is unchanged. There is some residual cellulitis to the dorsal aspect of the foot. There is no increase in warmth swelling tenderness. Neurological exam unchanged Dermatological: Stitches are clean dry intact with the skin edges coapted at this time the packing was pulled and the incision site is clean dry and intact at this time without any signs of soft tissue necrosis or residual infection. Remaining soft tissue with healthy bleeding edge remains viable at this time. Musculoskeletal exam: Unchanged Assessment 1 ) osteomyelitis left foot status post-POA incision drainage and amputation of second digit of the left foot. Date of surgery is 06/05/2020 2) cellulitis left foot POA-slightly improved 3) diabetes mellitus type 2 with peripheral neuropathy Plan: Patient examination evaluation Wound appears to be free of any acute infection at this time. We will plan for surgical intervention tomorrow at 7:00 in the morning with repeat incision and drainage as well as a delayed primary closure of the surgical wound. PICC line placed into right arm Will await IV antibiotics based on cultures however will proceed with vancomycin at this time every 12 hours N.p.o. at midnight Procedure will be done under very light MAC sedation and local. Patient is okay for discharge from my standpoint following the procedure tomorrow Patient will follow up on an outpatient basis for management of the IV antibiotics Patient is urged to follow-up with Dr. Vallejo within the next week regarding his severely diminished vascular status. Without reestablishing his vascular supply I feel as though he has had a very high risk for subsequent amputation. PT OT Case management Surgical shoe to be dispensed on discharge Dressing following procedures to remain clean dry and intact until 1 weeks follow-up. Patient to return in 1 week's time to my clinic as an outpatient for reassessment.
[2020-06-06] MEDS: ZOCOR 20MG PO SCH (21:28)
[2020-06-06] MEDS: Sodium Chloride 0.9% 1000 ML 1,000 ML IV SCH (21:29)
[2020-06-07] MEDS: VANCOMYCIN 2 GRAM/400 ML BAG 2 GM/400 ML PIGGYBACK IV SCH (04:07)
[2020-06-07] MEDS: Sodium Chloride 0.9% 10 ML FLUSH Syringe IV SCH ×2 (04:19→07:43)
[2020-06-07 05:47] LABS: Hematocrit 38.9 % (42-50); Hemoglobin 12.5 gm/dl (12.5-18.0); Mean Cell Volume 94.9 fl (78-100); Mean Corpuscular Hemoglobin 30.5 pg (26-32); Mean Corpuscular Hgb Concent. 32.1 g/dl (32-36); Mean Platelet Volume 9.6 fl (7.5-11.0); Platelet Count 281 K/mm3 (150-450); Red Cell Distribution Width 13.9 % (11.5-14.0); White Blood Count 9.6 K/mm3 (4.0-10.5)
[2020-06-07] MEDS ORDERED: Lactated Ringers 1,000 ML IV SCH (06:00)
[2020-06-07 06:14] LABS: ALBUMIN 3.2 g/dL (3.5-5.0); ALKALINE PHOSPHATASE 70 U/L (38-126); ANION GAP 11.2 MEQ/L (5-15); BLOOD UREA NITROGEN 15 mg/dL (9-20); CHLORIDE 107 mmol/L (98-107); Calcium 8.6 mg/dL (8.4-10.2); Carbon Dioxide 20 mmol/L (22-30); Creatinine 1 0.86 mg/dL (0.66-1.25); EST GLOMERULAR FILTRATION RATE > 60.0 ML/MIN; Glucose 162 mg/dL (74-106); Potassium 4.7 mmol/L (3.5-5.1); SGOT/AST 26 U/L (17-59); SGPT/ALT 19 U/L (0-50); SODIUM 133 mmol/L (137-145); Total Protein 6.6 g/dL (6.3-8.2)
[2020-06-07] MEDS ORDERED: XYLOCAINE 1% HCL 20 ML MDV ONE (06:48)
[2020-06-07] MEDS ORDERED: Lactated Ringers 0 ML IV ONE (06:48)
[2020-06-07] MEDS ORDERED: BUPIVACAINE 0.5% VIAL IJ ONE (06:48)
[2020-06-07] MEDS ORDERED: Versed 2 MG/2 ML Injection ONE (07:04)
[2020-06-07] MEDS ORDERED: DIPRIVAN 200 MG/20 ML IV ONE (07:04)
[2020-06-07] MEDS ORDERED: SUBLIMAZE 100 MCG/2 ML ONE (07:04)
[2020-06-07] MEDS ORDERED: Xopenex 1.25 MG/0.5 ML UD NEBULE IH ONE ×2 (07:42→07:48)
[2020-06-07] MEDS ORDERED: Sodium Chloride 3 ML UD NEBULES IH ONE ×2 (07:43→07:48)
--- NOTE | 2020-06-07 07:56 | OP ---
Podiatry Procedure Note Procedure Date:: 06/07/20 Procedure Time: 07:00 Podiatry Procedure Note: Surgeon: Chetan Phillips D.P.M. Tomato Grader: None Preoperative diagnosis: 1-osteomyelitis 2-deep abscess to the level of the fascia 3-diabetes mellitus with ulcer and infection 4-peripheral vascular disease -Post-operative diagnosis:[Same] Anesthesia: [MAC plus local] Hemostasis: [Pressure] Findings:[Delayed bleeding edge when incised with a 15 blade. Removal of all necrotic and devitalized tissue prior to closure] Estimated Blood Loss: [Less than 10 cc] Materials: [3-0 nylon] Injectibles: [5]ccs 1% lidocaine plain + [5] ccs 0.5 % marcaine plain. Total [10]ccs Specimens:[None] Complications:[None] Condition:[Satisfactory] Procedure Details:[] Following satisfactory pre-op evaluation the patient was brought into the OR and placed on the OR table in the supine position. MAC sedation was administered by anesthesia. Following sedation a time out was then called identifying patient identity, procedure, operative location, date, allergies, antibiotics, and other pertinent information in regards to the surgery to which everyone agreed. At this time a 10 cc injection of a one-to-one mixture of 1% lidocaine plain and 0.5% Marcaine plain was injected into the left foot in a proximal metatarsal block type fashion surrounding the second metatarsal of the left foot The foot was then prepped and draped in the usual sterile manner and lowered onto the surgical field. Attention was then directed to the Surgical wound at which the left second toe was amputated. At this time the 3-0 nylon that was utilized to coapt the proximal and distal portions of the wound were removed and the necrotic edges were debrided. Upon inspection when incising the edge of the wound was a delayed although healthy bleeding of the skin edges. At this time the surgical wound was opened up and a series of blunt and sharp dissection were utilized to remove all nonvitalized necrotic tissue from the wound base leaving only healthy granular tissue. At this time copious amounts of sterile saline were utilized to lavage and inspect the remainder of the wound when it was determined that there was no longer any necrotic or devitalized tissue and there was a healthy bleeding edge the skin edges were coapted. The skin was then coapted using 3-0 nylon by simple stitch. A dressing was applied consisting of Betadine Adaptic,4x4 guaze, kerlix, and conform. The patient tolerated anesthesia and the procedure well and was transported back to the floor with VSS and VSI to the Left foot. Orders fore the following were placed: 1. notify medicine of return to floor 2. resume all pre-op medications, orders, and diet 3 Resume aspirin 81 mg p.o. daily 4. Keep dressing CDI Until follow-up with podiatry 5. Full weightbearing to the left lower extremity in a surgical shoe. None full weightbearing to the right lower extremity 6. elevate left foot with pillow under leg 7. radiographs 3 views left foot 8. Patient may be discharged when he meets all discharge criteria
[2020-06-07] MEDS ORDERED: MOTRIN 600 MG PO PRN (08:38)
[2020-06-07] MEDS: Lopressor 25MG Tab PO SCH (09:25)
[2020-06-07] MEDS: NEURONTIN 300 MG PO SCH (09:25)
[2020-06-07] MEDS: Klor Con 10 MEQ PO SCH (09:25)
[2020-06-07] MEDS: Lotensin 10 MG PO SCH (09:25)
[2020-06-07] MEDS: Lantus Insulin SQ SCH (09:27)
[2020-06-07 09:28] LABS: Eosinophil 4 % (0.00-3.0); Lymphocytes 34 % (24-44); Neutrophils 62 % (36.-66.); Platelet Estimate NORMAL (NORMAL); Total Cells Counted 100
[2020-06-07] MEDS ORDERED: ECOTRIN 81 MG PO SCH (10:00)
--- NOTE | 2020-06-07 10:06 | XRAY ---
Indication: Postop exam. Comparison: June 03, 2020. 3 nonweightbearing views left foot demonstrates new complete 2nd toe amputation without complications. Remaining foot unchanged with stable 1st MTP bunion deformity, tiny heel spurs, and scattered vascular calcifications.
[2020-06-07] MEDS ORDERED: LEVOFLOXACIN 750MG/150ML D5W 750 MG/150 ML BAG IV ONE (10:30)
[2020-06-07 11:37] VITALS: BP 137/68; PULSE 73; O2SAT 97
[2020-06-07] MEDS ORDERED: TROUGH DRUG LEVELS IJ ONE (21:30)
== END 2020-06-07 12:10 | disposition home or self-care (01) | DRG 617 ==
LOC: MED SURG 14:24
PROVIDERS: ADMIT Family Medicine; ATTEND Family Medicine
PROC: 0Y6S0Z0 Detachment at Left 2nd Toe, Complete, Open Approach (ICD-10-PCS; principal; 2020-06-05)
PROC: 0J9R0ZZ Drainage of Left Foot Subcutaneous Tissue and Fascia, Open Approach (ICD-10-PCS; 2020-06-05)
PROC: 02HV33Z Insertion of Infusion Device into Superior Vena Cava, Percutaneous Approach (ICD-10-PCS; 2020-06-07)
DX: E11.69 Type 2 diabetes mellitus with other specified complication (principal); M86.172 Other acute osteomyelitis, left ankle and foot; E11.628 Type 2 diabetes mellitus with other skin complications; L03.032 Cellulitis of left toe; E11.621 Type 2 diabetes mellitus with foot ulcer; L97.523 Non-pressure chronic ulcer of other part of left foot with necrosis of muscle; I10 Essential (primary) hypertension; E78.00 Pure hypercholesterolemia, unspecified; Z79.899 Other long term (current) drug therapy; I25.10 Atherosclerotic heart disease of native coronary artery without angina pectoris; I73.9 Peripheral vascular disease, unspecified
CPT/HCPCS: 36415; 36573; 73630; 76937; 77001; 80053; 82947; 83036; 85025; 85652; 86140; 87040; 87070; 87077; 87186; 87205; 88304; 88305; 88311; 93005; 93925; 94640; C1769; J1642; J1644; J1817; J1956; J2250; J2704; J3010; A9270-GY; J3370

== ENCOUNTER 2021-07-12 03:18 | Emergency (ER) | payer OTHER ==
[2021-07-12] MEDS ORDERED: XYLOCAINE 1% HCL 20 ML MDV IJ ONE (03:19)
[2021-07-12] MEDS ORDERED: SILVADENE 50 GM TP ONE ×2 (03:36→03:53)
--- NOTE | 2021-07-12 03:50 | ERPHSYRPT ---
- History of Present Illness Time Seen by Provider: 07/12/21 03:35 Source: patient, family Exam Limitations: no limitations Patient Subjective Stated Complaint: pt states he noticed a foul smell from his foot yesterday and some blackened skin on the bottom of his lt foot. states he pulled the skin off and has a wound on the bottom of his foot Triage Nursing Assessment: pt alert and oriented, answers questions approp. pt ambulatory with limping gait noted. respirations nonlabored. skin warm and dry. wound to bottom of lt foot approx 4x1.5 and approx 0.5cm deep. no drainage at this time. pedal pulse and cap refill to lt foot wnl. Physician History: This is a 70-year-old hard of hearing white male patient of Dr. Coppola who is diabetic and has peripheral vascular disease. He has had a second toe amputation in the past secondary to a diabetic foot ulcer/infection. He presents with a recurrent ulceration in the similar region where the former toe was on the plantar surface. There was a black eschar which she pulled off today and there was a foul odor and he was having 6 out of 10 pain level. He could not sleep so he decided to come into the hospital for evaluation. He has a podiatry appointment on 07/28/2021. He has not had any fevers. He said no nausea vomiting or diarrhea symptoms. Method of Injury: other (No injury) Occurred: other (Chronic) Quality: aching Severity of Pain-Max: moderate Severity of Pain-Current: mild (Mild to moderate) Lower Extremities Pain: foot: left (Plantar surface ulceration with pain and odor) Associated Symptoms: other (Hurts to bear weight but can do so) Allergies/Adverse Reactions: No Known Drug Allergies Allergy (Verified 07/12/21 03:43) Home Medications: Aspirin 81 gm Chew [Baby Aspirin 81 mg Chew] 81 mg PO DAILY 05/14/16 [History] Benazepril HCl [Lotensin] 20 mg PO DAILY 05/14/16 [History] Insulin Aspart [NovoLOG Insulin] 20 unit SQ BID 05/14/16 [History] Metoprolol Tartrate 25 mg [Lopressor 25MG Tab] 12.5 tab PO BID 05/14/16 [History] Rosuvastatin Calcium [Crestor] 40 mg PO DAILY 05/14/16 [History] Gabapentin 300 mg PO TID 01/24/18 [History] Insulin Detemir [Levemir] 70 units IN UD 01/24/18 [History] Metformin HCl 500 mg PO BID 01/24/18 [History] Potassium Chloride [Klor-Con Sprinkle] 8 mg PO TID 01/24/18 [History] Empagliflozin [Jardiance] 10 mg PO DAILY 05/30/20 [History] Icosapent Ethyl [Vascepa] 1 cap PO BID 05/30/20 [History] Cefdinir 300 mg PO BID 06/04/20 [History] Levofloxacin [Levofloxacin 750Mg/150Ml D5w] 750 mg IV DAILY 06/20/20 [History] Clopidogrel Bisulfate 75 mg [PLAVIX 75 MG Tablet] 75 mg PO DAILY 07/04/20 [History] Hx Tetanus, Diphtheria Vaccination/Date Given: Yes Hx Influenza Vaccination/Date Given: Yes Hx Pneumococcal Vaccination/Date Given: Yes Immunizations Up to Date: Yes Travel Risk - International Travel Have you traveled outside of the country in past 3 weeks: No - Coronavirus Screening Are you exhibiting any of the following symptoms?: No Close contact with a COVID-19 positive Pt in past 14-21 Days: No - Vaccine Status Have you recieved a Covid-19 vaccination: Yes 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: [employer] - Vaccination Dates Date of 2cond Vaccination (if applicable): october 2020 Comment: [employer] booster - Review of Systems Constitutional: No Symptoms Eyes: No Symptoms Ears, Nose, & Throat: No Symptoms Respiratory: No Symptoms Cardiac: No Symptoms Abdominal/Gastrointestinal: No Symptoms Genitourinary Symptoms: No Symptoms Musculoskeletal: No Symptoms Skin: Other (Diabetic foot ulcer left foot) Neurological: No Symptoms Psychological: No Symptoms Endocrine: No Symptoms Hematologic/Lymphatic: No Symptoms Immunological/Allergic: No Symptoms All Other Systems: Reviewed and Negative - Past Medical History Pertinent Past Medical History: Yes Neurological History: No Pertinent History ENT History: No Pertinent History Cardiac History: Coronary Artery Disease, High Cholesterol, Hypertension, Myocardial Infarction ([place]), Other Respiratory History: No Pertinent History Endocrine Medical History: Diabetes Type II Musculoskeletal History: No Pertinent History GI Medical History: Polyps History: Other Psycho-Social History: No Pertinent History Male Reproductive Disorders: No Pertinent History Other Medical History: HEART CATH 03/24/16, OPEN HEART WITH 6 BYPASSES 04/03/16, kidney stones - Past Surgical History Past Surgical History: Yes Neuro Surgical History: No Pertinent History Cardiac: No Pertinent History, CABG, Cardiac Catheterization Respiratory: No Pertinent History Gastrointestinal: Other Genitourinary: Other Musculoskeletal: No Pertinent History Male Surgical History: No Pertinent History Other Surgical History: several colonoscopies, kidney stenting, toe amputaion - Social History Smoking Status: Former smoker How long have you smoked: 1971 Exposure to second hand smoke: Yes Drug Use: none Patient Lives Alone: No - Nursing Vital Signs Nursing Vital Signs: Initial Vital Signs Temperature 98.0 F 07/12/21 03:26 Pulse Rate 54 L 07/12/21 03:26 Respiratory Rate 18 07/12/21 03:26 Blood Pressure 130/71 07/12/21 03:26 O2 Sat by Pulse Oximetry 98 07/12/21 03:26 Pain Scale Pain Intensity 6 - Physical Exam General Appearance: no apparent distress, alert, obese Eyes, Ears, Nose, Throat Exam: normal ENT inspection, moist mucous membranes Neck Exam: normal inspection, non-tender, supple, full range of motion Cardiovascular/Respiratory Exam: chest non-tender, no respiratory distress Gastrointestinal/Abdominal Exam: non-tender Back Exam: normal inspection, normal range of motion, No CVA tenderness, No vertebral tenderness Hips Exam: bilateral: non-tender, normal inspection, normal range of motion, no evidence of injury Legs Exam: bilateral leg: non-tender, normal inspection, normal range of motion, no evidence of injury Knees Exam: bilateral knee: non-tender, normal inspection, normal range of motion, no evidence of injury Ankle Exam: bilateral ankle: non-tender, normal inspection, normal range of motion, no evidence of injury Foot Exam: right foot: non-tender, normal inspection, no evidence of injury, left foot: infection (Plantar surface ulcer with callus and mild odor. No cellulitis. No significant drainage), pain, soft tissue tenderness, bilateral foot: normal range of motion Neuro/Tendon Exam: normal sensation, normal motor functions, normal tendon functions Mental Status Exam: alert, oriented x 3, cooperative Skin Exam: warm, dry, other (Left foot infected diabetic foot ulcer) SpO2 Interpretation: normal SpO2: 98 O2 Delivery: Room Air - Course Nursing assessment & vital signs reviewed: Yes Ordered Tests: Medication Summary Discontinued Medications Generic Name Dose Route Start Last Admin Trade Name Uriah PRN Reason Stop Dose Admin Silver Sulfadiazine Confirm 07/12/21 03:36 Silver Sulfadiazine 50 Gm Tube Administered 07/12/21 03:37 Dose 50 gm TP .STK-MED ONE - Progress Progress: pain not gone completely Counseled pt/family regarding: diagnosis, need for follow-up - Departure Departure Disposition: Home Clinical Impression: Diabetic foot ulcer Condition: Stable Critical Care Time: No Referrals: JAROD COPPOLA [Primary Care Provider] - Follow up/PCP as directed Additional Instructions: Keep the left foot diabetic foot ulcer clean daily as you did when the you had an ulcer in the past. Call your corrections corporal later this morning to attempt to obtain an earlier appointment. Take your antibiotics and pain medication as prescribed. Prescriptions: Hydrocodone/APAP 5/325 [[place] 5/325 mg] 1 each PO Q8H PRN PRN #9 tablet MDD 3 PRN Reason: Pain Levofloxacin [Levaquin 500 MG Tablet] 500 mg PO DAILY #7 tablet
[2021-07-12] MEDS ORDERED: Levofloxacin 500 MG Tablet PO ONE (03:54)
[2021-07-12] MEDS ORDERED: Rocephin 1000 MG INJ IM ONE (03:54)
[2021-07-12] MEDS ORDERED: NORCO 5/325 MG PO ONE (03:54)
[2021-07-12] MEDS ORDERED: Levofloxacin 500 MG Tablet ONE (03:59)
[2021-07-12] MEDS ORDERED: NORCO 5/325 MG ONE (04:00)
[2021-07-12] MEDS ORDERED: Rocephin 1000 MG INJ ONE (04:00)
[2021-07-12 04:21] VITALS: BP 119/51; PULSE 64; O2SAT 97
== END 2021-07-12 04:28 | disposition home or self-care (01) ==
LOC: ED 03:18
DX: E11.621 Type 2 diabetes mellitus with foot ulcer (principal); L97.429 Non-pressure chronic ulcer of left heel and midfoot with unspecified severity; Z79.4 Long term (current) use of insulin; Z79.84 Long term (current) use of oral hypoglycemic drugs; E11.51 Type 2 diabetes mellitus with diabetic peripheral angiopathy without gangrene; I25.10 Atherosclerotic heart disease of native coronary artery without angina pectoris; I25.2 Old myocardial infarction; Z98.61 Coronary angioplasty status; I10 Essential (primary) hypertension; Z95.1 Presence of aortocoronary bypass graft; E78.5 Hyperlipidemia, unspecified; Z79.01 Long term (current) use of anticoagulants; Z79.891 Long term (current) use of opiate analgesic
CPT/HCPCS: 87070; 87077; 87186; 96372; 99284; J0696; A9270-GY

== ENCOUNTER 2021-07-19 06:14 | Day surgery (SDC) | payer OTHER ==
[2021-07-19] MEDS ORDERED: XYLOCAINE 1% HCL 20 ML MDV ONE (06:32)
[2021-07-19] MEDS ORDERED: BUPIVACAINE 0.5% VIAL IJ ONE (06:32)
[2021-07-19] MEDS ORDERED: Sodium Chloride 0.9% 1000 ML 1,000 ML IV SCH (07:00)
[2021-07-19] MEDS ORDERED: CEFAZOLIN 2 GM-D5W BAG** 2 GM/50 ML ML IV SCH (07:00)
--- NOTE | 2021-07-19 09:25 | XRAY ---
Indication: Left 2nd metatarsal osteotomy. Intraoperative fluoroscopy provided for 24 seconds. 2 digital spot images submitted for interpretation demonstrates sawblade overlying distal 2nd metatarsal. Correlate with intraoperative findings/report. Incidental 2nd toe amputation.
[2021-07-19 09:36] VITALS: BP 109/85; PULSE 58; O2SAT 96
--- NOTE | 2021-07-19 12:14 | XRAY ---
24 seconds fluoroscopy time in surgery for osteotomy of the left 2nd metatarsal.
--- NOTE | 2021-07-19 14:48 | OP ---
SURGERY DATE/TIME: 07/19/2021 0840 PREOPERATIVE DIAGNOSES: 1) Diabetic foot ulcer left foot. 2) Diabetic peripheral neuropathy. 3) Diabetes mellitus with diabetic foot ulceration. POSTOPERATIVE DIAGNOSES: 1) Diabetic foot ulcer left foot. 2) Diabetic peripheral neuropathy. 3) Diabetes mellitus with diabetic foot ulceration. PROCEDURE: Floating metatarsal head osteotomy of left second metatarsal. SURGEON: Chetan Black DPM. SCREEN PRINTER HELPER: None. ANESTHESIA: Local consisting of 10 cc of 1:1 mixture of 1% lidocaine plain and 0.5% bupivacaine plain. HEMOSTASIS: Pressure dressing. ESTIMATED BLOOD LOSS: Less than 5 cc. MATERIALS: 3-0 Nylon. INJECTABLES: 10 cc of 1:1 mixture of 1% lidocaine plain and 0.5% bupivacaine plain injected in a metatarsal block-type fashion. INDICATION FOR SURGERY: Isaias is a very pleasant 70-year-old male who presented to my office one year status post second digital amputation of the left foot. The patient at that time had demonstrated some indications of some new ulceration underneath the second metatarsal head. After advanced imaging was obtained this demonstrating no indications of osteomyelitis. The patient and were concerned that there were further amputations that needed to be obtained in order for his foot to heel. There was a superficial soft tissue infection which was addressed by antibiotics that were provided in the emergency department. At this time the patient is willing to proceed with surgical intervention in order to get the wound healed in the quickest fashion. He understands all risks, benefits and complications of the surgical procedure including but not limited to delayed skin healing, nonskin healing, delayed bone healing and nonbone healing which is as far as literature has indicated is 60% of the time. He understands this however he is neuropathic so this will not cause him any pain with ambulation. However, it will offload the ulceration second metatarsal head of the left foot. DESCRIPTION OF PROCEDURE AND FINDINGS: The patient is brought into the OR and placed on the OR table in supine position. At this time a time out was called identifying patient factors and antibiotics to which we agree. At this time attention was directed to the dorsal aspect of the left foot where a 10 cc block was performed under sterile technique consisting of 1% lidocaine plain and 0.5% bupivacaine plain. At this time the patient's left foot was prepped and draped in the typical fashion with Betadine and the left lower extremity was lowered onto the surgical field. At this time attention was directed to the dorsolateral aspect of the second metatarsal where a stab incision was made down to the level of the bone. At this time a small sagittal saw was introduced through this poke hole incision and a cut was made under fluoroscopic guidance utilizing the sagittal saw perpendicular to the longitudinal axis of the second metatarsal. At this time fluoroscopy was obtained in order to assess that there was adequate mobilization of the second metatarsal head. At this time attention was directed to the wound where the wound was then debrided utilizing a combination of sharp and blunt instrumentation utilizing curettes and 15 blade. Measurements of this preoperatively were 1.3 x 0.6 x 0.2, postoperatively were 1.6 x 0.7 x 0.4 cm, this was cleansed with copious amounts of sterile saline. Prior to the dressing there was a single 3-0 Nylon in a simple interrupted-type fashion for the stab incision to coapt the skin edges. Then a dressing consisting Betadine, Adaptic, 4x4, Kerlix and Unna boot was applied to the left lower extremity secondary to the patient's venous insufficiency. The patient handled the procedure and local anesthetic without complication, was returned to same day surgery with vital signs stable and vascular status intact. The patient's postoperative orders as indicated in the patient's discharge chart.
== END 2021-07-19 09:53 | disposition home or self-care (01) ==
LOC: SDC 06:14 → EDSTATUS 08:03 → SDC 09:53
PROVIDERS: ATTEND Podiatrist Foot & Ankle Surgery
DX: E11.621 Type 2 diabetes mellitus with foot ulcer (principal); E11.42 Type 2 diabetes mellitus with diabetic polyneuropathy
CPT/HCPCS: 28306; 29580; 73620; 76000; 82947; J0690

== ENCOUNTER 2021-11-25 09:22 | Observation (INO) | payer OTHER ==
[2021-11-25] MEDS ORDERED: DUONEB 0.5-3 MG/3 ml Neb IH ONE ×4 (09:58→13:39)
[2021-11-25 10:13] LABS: Absolute Neutrophil Ct (ANC) 6.25 (1.4-6.9); Basophil (Absolute #) 0.08 (0-0.4); Eosinophil % 7.6 % (0.00-5.0); Eosinophil (Absolute #) 0.83 (0-0.5); Hematocrit 45.6 % (42-50); Hemoglobin 15.2 gm/dl (12.5-18.0); Lymphocytes % 26.4 % (24.0-44.0); Mean Cell Volume 93.6 fl (78-100); Mean Corpuscular Hemoglobin 31.2 pg (26-32); Mean Corpuscular Hgb Concent. 33.3 g/dl (32-36); Monocyte (Absolute #) 0.92 (0.0-1.3); Monocytes % 8.4 % (0.0-12.0); Neutrophil % 56.9 % (36.0-66.0); Platelet Count 193 K/mm3 (150-450); Red Blood Count 4.87 M/mm3 (4.1-5.6); Red Cell Distribution Width 14.1 % (11.5-14.0)
[2021-11-25 10:19] LABS: INR 0.99 (0.8-3.0); PROTIME 11.7 SECONDS (9.4-12.5)
--- NOTE | 2021-11-25 10:28 | ERPHSYRPT ---
- History of Present Illness Source: patient Exam Limitations: no limitations Patient Subjective Stated Complaint: PT states "I have been having to sleep elevated and I am coughing and not feeling well." Triage Nursing Assessment: Pt presented alert and oriented X 3, skin wpd PT ambulates with an upright steady gait, able to speak in clear full sentences. PT tachypneic and coughing. Physician History: 71 yo wm w h/o HTN/CAD/RI/CABG/DM/1-2 ppd until 2016 presents w nonproductive cough x5 days. Pt has dyspnea at rest and upon exertion. He states that he gets dyspneic when lying flat. Chest pain is denied along w N/V/D/melena/hematochezia/fever. Timing/Duration: other (5 days) Cough Quality/Degree: dry cough Possible Cause: occasional episodes Modifying Factors: Improves With: activity, coughing, deep breath, exertion Associated Symptoms: cough, shortness of breath, No fever, No chills, No dizziness, No earache, No facial pain, No headache, No lightheadedness, No muscle aches, No nasal congestion, No nasal drainage, No sinus infection Allergies/Adverse Reactions: No Known Drug Allergies Allergy (Verified 07/19/21 07:08) Home Medications: Aspirin 81 gm Chew [Baby Aspirin 81 mg Chew] 81 mg PO DAILY 05/14/16 [History] Benazepril HCl [Lotensin] 20 mg PO DAILY 05/14/16 [History] Insulin Aspart [NovoLOG Insulin] 20 unit SQ BID 05/14/16 [History] Metoprolol Tartrate 25 mg [Lopressor 25MG Tab] 12.5 tab PO BID 05/14/16 [History] Gabapentin 300 mg PO TID 01/24/18 [History] Insulin Detemir [Levemir] 70 units IN UD 01/24/18 [History] Metformin HCl 500 mg PO BID 01/24/18 [History] Potassium Chloride [Klor-Con Sprinkle] 8 mg PO TID 01/24/18 [History] Empagliflozin [Jardiance] 10 mg PO DAILY 05/30/20 [History] Budesonide/Glycopyr/Formoterol [Breztri Aerosphere Inhaler] 1 unit IH DAILY 11/25/21 [History] Hx Tetanus, Diphtheria Vaccination/Date Given: Yes Hx Influenza Vaccination/Date Given: Yes Hx Pneumococcal Vaccination/Date Given: Yes Immunizations Up to Date: Yes Travel Risk - International Travel Have you traveled outside of the country in past 3 weeks: No - Coronavirus Screening Are you exhibiting any of the following symptoms?: No Close contact with a COVID-19 positive Pt in past 14-21 Days: No - Vaccine Status Have you recieved a Covid-19 vaccination: Yes 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[employer]: [employer] - Vaccination Dates Date of 2cond Vaccination (if applicable): october 2020 Comment: [employer] booster - Review of Systems Constitutional: No Symptoms, Fatigue Eyes: No Symptoms Ears, Nose, & Throat: No Symptoms Respiratory: Cough, Dyspnea, Dyspnea on Exertion (GALVEZ), Wheezing Cardiac: PND, No Chest Pain, No Edema, No Palpitations, No Syncope Abdominal/Gastrointestinal: No Abdominal Pain, No Nausea, No Vomiting, No Di arrhea, No Constipation, No Hematemesis, No Hematochezia, No Melena, No Dysphagia, No Appetite Changes Genitourinary Symptoms: No Symptoms Musculoskeletal: No Symptoms Skin: No Symptoms Neurological: No Symptoms Psychological: No Symptoms Endocrine: No Symptoms Hematologic/Lymphatic: No Symptoms Immunological/Allergic: No Symptoms - Past Medical History Pertinent Past Medical History: Yes Neurological History: No Pertinent History ENT History: No Pertinent History Cardiac History: Coronary Artery Disease, High Cholesterol, Hypertension, Myocardial Infarction (RI), Other Respiratory History: No Pertinent History Endocrine Medical History: Diabetes Type II Musculoskeletal History: No Pertinent History GI Medical History: Polyps History: Other Psycho-Social History: No Pertinent History Male Reproductive Disorders: No Pertinent History Other Medical History: HEART CATH 03/24/16, OPEN HEART WITH 6 BYPASSES 04/03/16, kidney stones - Past Surgical History Past Surgical History: Yes Neuro Surgical History: No Pertinent History Cardiac: CABG, Cardiac Catheterization Respiratory: No Pertinent History Gastrointestinal: Other Genitourinary: Other Musculoskeletal: No Pertinent History Male Surgical History: No Pertinent History Other Surgical History: several colonoscopies, kidney stenting, toe amputaion - Social History Smoking Status: Former smoker How long have you smoked: 1971 Exposure to second hand smoke: Yes Drug Use: none Patient Lives Alone: No Significant Family History: no pertinent family hx - Nursing Vital Signs Nursing Vital Signs: Initial Vital Signs Temperature 98.2 F 11/25/21 09:28 Pulse Rate 85 04/25/22 09:28 Respiratory Rate 26 H 11/25/21 09:28 Blood Pressure 138/75 11/25/21 09:28 O2 Sat by Pulse Oximetry 96 11/25/21 09:28 Pain Scale Pain Intensity 0 Tachypneic - Physical Exam General Appearance: no apparent distress Eye Exam: PERRL/EOMI, eyes nml inspection Ears, Nose, Throat Exam: normal ENT inspection, TMs normal, pharynx normal, moist mucous membranes Neck Exam: normal inspection, non-tender, supple, full range of motion, No meningismus, No mass, No Brudzinski, No Kernig's Respiratory Exam: airway intact, diminished breath sounds (Bases B), prolonged expirations, rhonchi (Scattered), wheezing (Scattered) Cardiovascular Exam: regular rate/rhythm, capillary refill <2 sec, No murmur Gastrointestinal/Abdomen Exam: soft, normal bowel sounds, No tenderness Back Exam: normal inspection, normal range of motion, No CVA tenderness Extremity Exam: normal inspection, normal range of motion Neurologic Exam: alert, oriented x 3, cooperative, manager social services II-XII nml as tested, normal mood/affect, nml cerebellar function, nml station & gait, sensation nml, No motor deficits, No sensory deficit Skin Exam: normal color, warm, dry Lymphatic Exam: No adenopathy SpO2 Interpretation: normal SpO2: 95 O2 Delivery: Room Air - Course Nursing assessment & vital signs reviewed: Yes EKG Interpreted by Me: RATE (NSR/R70/PVC's/Prolonged QTc/RBBB/No acute ST segm ent changes) - Radiology Exams Chest X-ray Interpretation: Discussed w/ radiologist (CXR Minimal L basilar atelectasis vs infiltrate) - CT Exams Chest CT Interpretation: Discussed w/radiologist (Fibrosis/Scarring-nothing acute) Ordered Tests: Active Orders 24 hr Category Date Time Status Bedrest with BRP/BSC ROUTINE Activity 11/25/21 14:21 Active Code Status Order ROUTINE Care 11/25/21 14:20 Active EKG-ER Only STAT Care 11/25/21 09:58 Active IV Care Q6H Care 11/25/21 14:[address] in Observation ROUTINE Care 11/25/21 14:20 Active Vital Signs Q4H Care 11/25/21 14:20 Active Heart-Healthy Diet Diet 11/25/21 Dinner Active CHEST 1 VIEW (PORTABLE) Stat Exams 11/25/21 09:55 Completed CHEST WITHOUT CONTRAST [CT] Stat Exams 11/25/21 12:12 Completed CBC W DIFF AM.LAB Lab 11/26/21 04:00 Ordered CBC W DIFF Stat Lab 11/25/21 10:09 Completed CMP AM.LAB Lab 11/26/21 04:00 Ordered CMP Stat Lab 11/25/21 10:09 Completed Lactic Acid AM.LAB Lab 11/26/21 04:00 Ordered Lactic Acid Stat Lab 11/25/21 10:15 Completed Lactic Acid Stat Lab 11/25/21 12:33 Completed NT PRO BNP Stat Lab 11/25/21 10:09 Completed PROTIME WITH INR Stat Lab 11/25/21 10:09 Completed PTT Stat Lab 11/25/21 10:09 Completed TROPONIN Q3H Lab 11/25/21 10:09 Completed TROPONIN Q3H Lab 11/25/21 13:10 Completed TROPONIN Q3H Lab 11/25/21 16:00 Ordered TROPONIN Q3H Lab 11/25/21 19:00 Ordered TROPONIN Q3H Lab 11/25/21 22:00 Ordered Respiratory Therapy Assessment DAILY RT 11/25/21 10:35 Completed Transfer Order Routine Transfer 11/25/21 Ordered Medication Summary Generic Name Dose Route Start Last Admin Trade Name Freq PRN Reason Stop Dose Admin Albuterol/Ipratropium 3 ml 11/25/21 15:00 Ipratropium/Albuterol Sulfate 3 Ml Ampul.Neb IH 12/25/21 14:59 Q4HRT [facility] Methylprednisolone Sodium 0 mg 11/25/21 18:00 Succinate 125 mg/ Sterile IV 12/25/21 17:59 Water 2 ml Q6HT [facility] Enoxaparin Sodium 40 mg 11/26/21 10:00 Enoxaparin Sodium 40 Mg/0.4 Ml Syringe SQ 12/26/21 09:59 DAILY [facility] Sodium Chloride 1,000 mls @ 100 mls/hr 11/25/21 14:30 Sodium Chloride 0.9% 1000 Ml IV 12/25/21 14:29 .Q10H [facility] Ondansetron HCl 4 mg 11/25/21 14:20 Ondansetron Hcl 4 Mg/2 Ml Vial IV 12/25/21 14:19 Q6H PRN PRN NAUSEA/VOMITING Pantoprazole Sodium 40 mg 11/26/21 10:00 Pantoprazole 40 Mg Vial IV 12/26/21 09:59 Q24H10 [facility] Discontinued Medications Generic Name Dose Route Start Last Admin Trade Name Freq PRN Reason Stop Dose Admin Albuterol/Ipratropium 3 ml 11/25/21 09:58 11/25/21 10:20 Ipratropium/Albuterol Sulfate 3 Ml Ampul.Neb IH 11/25/21 09:59 3 ml STAT ONE Administration Albuterol/Ipratropium Confirm 11/25/21 10:16 Ipratropium/Albuterol Sulfate 3 Ml Ampul.Neb Administered 11/25/21 10:17 Dose 3 ml IH .STK-MED ONE Albuterol/Ipratropium 3 ml 11/25/21 13:24 11/25/21 13:44 Ipratropium/Albuterol Sulfate 3 Ml Ampul.Neb IH 11/25/21 13:25 3 ml STAT ONE Administration Albuterol/Ipratropium Confirm 11/25/21 13:39 Ipratropium/Albuterol Sulfate 3 Ml Ampul.Neb Administered 11/25/21 13:40 Dose 3 ml IH .STK-MED ONE Methylprednisolone Sodium 0 mg 11/25/21 14:17 11/25/21 14:26 Succinate 125 mg/ Sterile IV 11/25/21 14:18 125 mg Water 2 ml STAT ONE Administration Sodium Chloride 1,000 mls @ 999 mls/hr 11/25/21 11:53 11/25/21 13:09 Sodium Chloride 0.9% 1000 Ml IV 11/25/21 12:53 Infused .Q1H1M STA Infusion Sodium Chloride Confirm 11/25/21 11:57 Sodium Chloride 0.9% 1000 Ml Administered 11/25/21 11:58 Dose 1,000 mls @ ud .ROUTE .STK-MED ONE Sodium Chloride 1,000 mls @ 999 mls/hr 11/25/21 13:17 11/25/21 14:23 Sodium Chloride 0.9% 1000 Ml IV 11/25/21 14:17 Infused .Q1H1M STA Infusion Sodium Chloride Confirm 11/25/21 13:18 Sodium Chloride 0.9% 1000 Ml Administered 11/25/21 13:19 Dose 1,000 mls @ ud .ROUTE .STK-MED ONE Methylprednisolone Sodium Succinate Confirm 11/25/21 14:25 Methylprednis Sod Succ 125 Mg/2 Ml Vial Administered 11/25/21 14:26 Dose 125 mg .ROUTE .STK-MED ONE Sterile Water Confirm 11/25/21 14:25 Water For Injection,Sterile 10 Ml Vial Administered 11/25/21 14:26 Dose 10 ml IJ .STK-MED ONE Lab/Rad Data: Laboratory Result Diagrams 11/25/21 10:09 11/25/21 10:09 Laboratory Results 11/25/21 11/25/21 11/25/21 Range/Units 13:24 13:10 12:33 WBC (4.0-10.5) K/mm3 RBC (4.1-5.6) M/mm3 Hgb (12.5-18.0) gm/dl Hct (42-50) % MCV (78-100) fl MCH (26-32) pg MCHC (32-36) g/dl RDW (11.5-14.0) % Plt Count (150-450) K/mm3 MPV (7.5-11.0) fl Gran % (36.0-66.0) % Eos # (Auto) (0-0.5) Absolute Lymphs (auto) (1.0-4.6) Absolute Monos (auto) (0.0-1.3) Lymphocytes % (24.0-44.0) % Monocytes % (0.0-12.0) % Eosinophils % (0.00-5.0) % Basophils % (0.0-0.4) % Absolute Granulocytes (1.4-6.9) Basophils # (0-0.4) PT (9.4-12.5) SECONDS INR (0.8-3.0) APTT (25.1-36.5) SECONDS Sodium (137-145) mmol/L Potassium (3.5-5.1) mmol/L Chloride (98-107) mmol/L Carbon Dioxide (22-30) mmol/L Anion Gap (5-15) MEQ/L BUN (9-20) mg/dL Creatinine (0.66-1.25) mg/dL Estimated GFR ML/MIN Glucose (74-106) mg/dL Lactic Acid 2.3 H (0.4-2.0) Calcium (8.4-10.2) mg/dL Total Bilirubin (0.2-1.3) mg/dL AST (17-59) U/L ALT (0-50) U/L Alkaline Phosphatase (38-126) U/L Troponin I < 0.012 (0.000-0.034) ng/mL NT-Pro-B Natriuret Pep (0-900) pg/mL Serum Total Protein (6.3-8.2) g/dL Albumin (3.5-5.0) g/dL Urinalys Dipstick Clnc MAIN LAB Urine Color Cancelled Urine Appearance Cancelled Urine pH Cancelled Ur Specific [place] Cancelled Urine Protein Cancelled POC Urine Protein Conf NEGATIVE (Negative) Urine Ketones Cancelled Urine Blood Cancelled Urine Nitrite Cancelled Urine Bilirubin Cancelled Urine Urobilinogen Cancelled Ur Leukocyte Esterase Cancelled Urine Leukocytes NEGATIVE (NEGATIVE) Urine WBC (Auto) NONE (0-5) /HPF Urine RBC (Auto) NONE (0-2) /HPF U Epithel Cells (Auto) NONE (FEW) /HPF Urine Bacteria (Auto) NONE (NEGATIVE) /HPF Urine RBC NEGATIVE (0-5) Patrick/ul U Non-Squamous Epi Cells Cancelled Urine Mucus (Auto) SLIGHT (NEGATIVE) /HPF Ur Culture Indicated? NO Urine Culture Reflexed Cancelled Urine Glucose >=1000 (NEGATIVE) mg/dL Influenza Type A Ag (NEGATIVE) Influenza Type B Ag (NEGATIVE) RSV (PCR) (Negative) SARS-CoV-2 (PCR) (NEGATIVE) 11/25/21 11/25/21 11/25/21 Range/Units 10:15 10:15 10:09 WBC (4.0-10.5) K/mm3 RBC (4.1-5.6) M/mm3 Hgb (12.5-18.0) gm/dl Hct (42-50) % MCV (78-100) fl MCH (26-32) pg MCHC (32-36) g/dl RDW (11.5-14.0) % Plt Count (150-450) K/mm3 MPV (7.5-11.0) fl Gran % (36.0-66.0) % Eos # (Auto) (0-0.5) Absolute Lymphs (auto) (1.0-4.6) Absolute Monos (auto) (0.0-1.3) Lymphocytes % (24.0-44.0) % Monocytes % (0.0-12.0) % Eosinophils % (0.00-5.0) % Basophils % (0.0-0.4) % Absolute Granulocytes (1.4-6.9) Basophils # (0-0.4) PT (9.4-12.5) SECONDS INR (0.8-3.0) APTT (25.1-36.5) SECONDS Sodium (137-145) mmol/L Potassium (3.5-5.1) mmol/L Chloride (98-107) mmol/L Carbon Dioxide (22-30) mmol/L Anion Gap (5-15) MEQ/L BUN (9-20) mg/dL Creatinine (0.66-1.25) mg/dL Estimated GFR ML/MIN Glucose (74-106) mg/dL Lactic Acid 2.3 H (0.4-2.0) Calcium (8.4-10.2) mg/dL Total Bilirubin (0.2-1.3) mg/dL AST (17-59) U/L ALT (0-50) U/L Alkaline Phosphatase (38-126) U/L Troponin I < 0.012 (0.000-0.034) ng/mL NT-Pro-B Natriuret Pep (0-900) pg/mL Serum Total Protein (6.3-8.2) g/dL Albumin (3.5-5.0) g/dL Urinalys Dipstick Clnc Urine Color Urine Appearance Urine pH Ur Specific [place] Urine Protein POC Urine Protein Conf (Negative) Urine Ketones Urine Blood Urine Nitrite Urine Bilirubin Urine Urobilinogen Ur Leukocyte Esterase Urine Leukocytes (NEGATIVE) Urine WBC (Auto) (0-5) /HPF Urine RBC (Auto) (0-2) /HPF U Epithel Cells (Auto) (FEW) /HPF Urine Bacteria (Auto) (NEGATIVE) /HPF Urine RBC (0-5) Patrick/ul U Non-Squamous Epi Cells Urine Mucus (Auto) (NEGATIVE) /HPF Ur Culture Indicated? Urine Culture Reflexed Urine Glucose (NEGATIVE) mg/dL Influenza Type A Ag NEGATIVE (NEGATIVE) Influenza Type B Ag NEGATIVE (NEGATIVE) RSV (PCR) NEGATIVE (Negative) SARS-CoV-2 (PCR) NEGATIVE (NEGATIVE) 11/25/21 11/25/21 11/25/21 Range/Units 10:09 10:09 10:09 WBC 11.0 H (4.0-10.5) K/mm3 RBC 4.87 (4.1-5.6) M/mm3 Hgb 15.2 (12.5-18.0) gm/dl Hct 45.6 (42-50) % MCV 93.6 (78-100) fl MCH 31.2 (26-32) pg MCHC 33.3 (32-36) g/dl RDW 14.1 H (11.5-14.0) % Plt Count 193 (150-450) K/mm3 MPV 11.0 (7.5-11.0) fl Gran % 56.9 (36.0-66.0) % Eos # (Auto) 0.83 H (0-0.5) Absolute Lymphs (auto) 2.90 (1.0-4.6) Absolute Monos (auto) 0.92 (0.0-1.3) Lymphocytes % 26.4 (24.0-44.0) % Monocytes % 8.4 (0.0-12.0) % Eosinophils % 7.6 H (0.00-5.0) % Basophils % 0.7 (0.0-0.4) % Absolute Granulocytes 6.25 (1.4-6.9) Basophils # 0.08 (0-0.4) PT 11.7 (9.4-12.5) SECONDS INR 0.99 (0.8-3.0) APTT 31.0 (25.1-36.5) SECONDS Sodium 138 (137-145) mmol/L Potassium 5.0 (3.5-5.1) mmol/L Chloride 101 (98-107) mmol/L Carbon Dioxide 21 L (22-30) mmol/L Anion Gap 19.8 H (5-15) MEQ/L BUN 26 H (9-20) mg/dL Creatinine 1.48 H (0.66-1.25) mg/dL Estimated GFR 49.9 ML/MIN Glucose 206 H (74-106) mg/dL Lactic Acid (0.4-2.0) Calcium 9.5 (8.4-10.2) mg/dL Total Bilirubin 0.90 (0.2-1.3) mg/dL AST 23 (17-59) U/L ALT 18 (0-50) U/L Alkaline Phosphatase 59 (38-126) U/L Troponin I (0.000-0.034) ng/mL NT-Pro-B Natriuret Pep 157 (0-900) pg/mL Serum Total Protein 7.3 (6.3-8.2) g/dL Albumin 4.1 (3.5-5.0) g/dL Urinalys Dipstick Clnc Urine Color Urine Appearance Urine pH Ur Specific [place] Urine Protein POC Urine Protein Conf (Negative) Urine Ketones Urine Blood Urine Nitrite Urine Bilirubin Urine Urobilinogen Ur Leukocyte Esterase Urine Leukocytes (NEGATIVE) Urine WBC (Auto) (0-5) /HPF Urine RBC (Auto) (0-2) /HPF U Epithel Cells (Auto) (FEW) /HPF Urine Bacteria (Auto) (NEGATIVE) /HPF Urine RBC (0-5) Patrick/ul U Non-Squamous Epi Cells Urine Mucus (Auto) (NEGATIVE) /HPF Ur Culture Indicated? Urine Culture Reflexed Urine Glucose (NEGATIVE) mg/dL Influenza Type A Ag (NEGATIVE) Influenza Type B Ag (NEGATIVE) RSV (PCR) (Negative) SARS-CoV-2 (PCR) (NEGATIVE) - Progress Progress: improved Air Movement: fair Progress Note: 11/25/21 14:26 Duoneb x2 w mild improvement 2L NS bolus 125mg IV Solumedrol 11/25/21 14:[address] Alvarado Orders placed 11/25/21 14:51 LA stayed elevated despite 2L NS bolus No source of obvious infection Counseled pt/family regarding: lab results, diagnosis, rad results - Departure Departure Disposition: Observation Clinical Impression: COPD exacerbation Condition: Stable Critical Care Time: No
[2021-11-25 10:50] LABS: ALBUMIN 4.1 g/dL (3.5-5.0); ANION GAP 19.8 MEQ/L (5-15); BILIRUBIN,TOTAL 0.9 mg/dL (0.2-1.3); Calcium 9.5 mg/dL (8.4-10.2); Creatinine 1 1.48 mg/dL (0.66-1.25); EST GLOMERULAR FILTRATION RATE 49.9 ML/MIN; Total Protein 7.3 g/dL (6.3-8.2)
[2021-11-25 10:51] LABS: INFLUENZA A NEGATIVE (NEGATIVE); INFLUENZA B NEGATIVE (NEGATIVE); RESPIRATORY SYNCTIAL VIRUS NEGATIVE (Negative); SARS-CoV-2 Xpert Express NEGATIVE (NEGATIVE)
--- NOTE | 2021-11-25 10:56 | XRAY ---
Indication: Cough and wheezing. Comparison: May 30, 2020. Portable chest now demonstrates minimal left base infiltrate versus atelectasis. Remaining heart and lungs unremarkable again with incidental CABG. Bony thorax intact.
[2021-11-25] MEDS ORDERED: Sodium Chloride 0.9% 1000 ML 1,000 ML IV STA ×2 (11:53→13:17)
[2021-11-25] MEDS ORDERED: Sodium Chloride 0.9% 1000 ML 1,000 ML ONE ×2 (11:57→13:18)
--- NOTE | 2021-11-25 12:31 | XRAY ---
Indication: Abnormal chest x-ray. Multiple contiguous axial images obtained through the chest without contrast. Comparison: None Lungs demonstrate minimal left upper lobe, lingula, and left base fibrosis/scarring. Tiny right middle lobe calcified granuloma. No suspicious pulmonary mass, infiltrate, effusion, or pneumothorax. Heart not enlarged with extensive coronary calcifications. Aorta mildly arteriosclerotic without aneurysm. No pathologic mediastinal lymphadenopathy. Bony thorax intact with mild degenerative changes throughout the spine and sternotomy wires. Limited upper abdomen demonstrates additional moderate arteriosclerotic calcifications. Impression: 1. Scattered left lung fibrosis/scarring, arteriosclerotic disease, chronic bony findings, and old granulomatous disease. 2. Remaining CT chest without contrast exam is negative.
[2021-11-25 13:31] LABS: Appearance CLEAR (CLEAR); Bilirubin NEGATIVE (NEGATIVE); Dipstick done @ ? MAIN LAB; Glucose >=1000 mg/dL (NEGATIVE); Ketones NEGATIVE (NEGATIVE); Nitrite NEGATIVE (NEGATIVE); Protein,Urine Dip NEGATIVE (Negative); RBC NEGATIVE Ery/ul (0-5); Specific Gravity 1.015 (1.005-1.025); Urobilinogen 0.2 mg/dL (0-1)
[2021-11-25 13:39] LABS: Mucus SLIGHT /HPF (NEGATIVE)
[2021-11-25 13:40] LABS: Urine Cultured Indicated? NO
[2021-11-25] MEDS ORDERED: solu-MEDROL 125 MG, Sterile H2O 10 ml 2 ML IV ONE ×2 (14:17)
[2021-11-25] MEDS ORDERED: Zofran 4 MG/2 ML VIAL IV PRN (14:20)
[2021-11-25] MEDS ORDERED: Sterile H2O 10 ml IJ ONE ×2 (14:25→20:08)
[2021-11-25] MEDS ORDERED: solu-MEDROL ONE ×2 (14:25→20:06)
[2021-11-25] MEDS ORDERED: Sodium Chloride 0.9% 1000 ML 1,000 ML IV SCH (14:30)
[2021-11-25] MEDS ORDERED: DUONEB 0.5-3 MG/3 ml Neb IH SCH (15:00)
[2021-11-25] MEDS ORDERED: DUONEB 0.5-3 MG/3 ml Neb IH PRN (16:50)
[2021-11-25] MEDS ORDERED: INSULIN DETEMIR IN SCH (17:30)
[2021-11-25] MEDS ORDERED: Lantus Insulin SQ SCH (17:30)
[2021-11-25] MEDS ORDERED: solu-MEDROL 125 MG, Sterile H2O 10 ml 2 ML IV SCH ×2 (18:00)
[2021-11-25] MEDS: Robitussin AC Syrup Unit Dose Cup PO PRN ×2 (18:38→22:19)
[2021-11-25] MEDS: DUONEB 0.5-3 MG/3 ml Neb IH SCH (19:37)
[2021-11-25] MEDS: PATIENT OWN MEDICATION IH SCH (19:38)
[2021-11-25] MEDS: solu-MEDROL 125 MG, Sterile H2O 10 ml 2 ML IV SCH ×2 (20:09)
[2021-11-25] MEDS ORDERED: Lasix 40 MG PO SCH (22:00)
[2021-11-25] MEDS ORDERED: NEURONTIN 300 MG PO SCH (22:00)
[2021-11-25] MEDS ORDERED: Lopressor 25MG Tab PO SCH (22:00)
[2021-11-25] MEDS ORDERED: Klor Con 10 MEQ PO SCH (22:00)
[2021-11-25] MEDS ORDERED: ZOCOR 20MG PO SCH (22:00)
[2021-11-25] MEDS ORDERED: POTASSIUM CHLORIDE PO SCH (22:00)
[2021-11-25] MEDS ORDERED: NON-FORMULARY ITEM (Rosuvastatin Calcium [Rosuvastatin Calcium] 40 MG Tablet) PO SCH (22:00)
[2021-11-25] MEDS ORDERED: NON-FORMULARY ITEM (Insulin Aspart** [Novolog Insulin**] 1 UNIT Unit) SQ SCH (22:00)
[2021-11-25] MEDS: HUMALOG SQ SCH (22:23)
[2021-11-26] MEDS ORDERED: solu-MEDROL ONE ×2 (00:30→06:40)
[2021-11-26] MEDS: solu-MEDROL 125 MG, Sterile H2O 10 ml 2 ML IV SCH ×4 (00:32→06:41)
[2021-11-26 05:30] LABS: ALBUMIN 4.2 g/dL (3.5-5.0); ANION GAP 18.3 MEQ/L (5-15); BILIRUBIN,TOTAL 0.7 mg/dL (0.2-1.3); Creatinine 1 1.45 mg/dL (0.66-1.25); EST GLOMERULAR FILTRATION RATE 51.1 ML/MIN; Potassium 5.1 mmol/L (3.5-5.1); Total Protein 7.4 g/dL (6.3-8.2)
[2021-11-26 05:38] LABS: Absolute Neutrophil Ct (ANC) 10.54 (1.4-6.9); Basophil (Absolute #) 0.02 (0-0.4); Eosinophil % 0.1 % (0.00-5.0); Eosinophil (Absolute #) 0.01 (0-0.5); Hematocrit 44.4 % (42-50); Hemoglobin 14.5 gm/dl (12.5-18.0); Lymphocyte (Absolute #) 0.75 (1.0-4.6); Lymphocytes % 6.6 % (24.0-44.0); Mean Cell Volume 94.7 fl (78-100); Mean Corpuscular Hemoglobin 30.9 pg (26-32); Mean Corpuscular Hgb Concent. 32.7 g/dl (32-36); Mean Platelet Volume 10.9 fl (7.5-11.0); Monocyte (Absolute #) 0.13 (0.0-1.3); Monocytes % 1.1 % (0.0-12.0); Platelet Count 195 K/mm3 (150-450); Red Blood Count 4.69 M/mm3 (4.1-5.6); Red Cell Distribution Width 14.3 % (11.5-14.0); White Blood Count 11.5 K/mm3 (4.0-10.5)
[2021-11-26] MEDS: DUONEB 0.5-3 MG/3 ml Neb IH SCH (07:00)
[2021-11-26] MEDS: PATIENT OWN MEDICATION IH SCH (07:02)
[2021-11-26 07:20] VITALS: BP 113/55; PULSE 76; O2SAT 94
[2021-11-26] MEDS: HUMALOG SQ SCH (08:15)
[2021-11-26] MEDS ORDERED: ENOXAPARIN SODIUM SQ SCH (10:00)
[2021-11-26] MEDS ORDERED: PROTONIX 40 MG IV IV SCH (10:00)
[2021-11-26] MEDS ORDERED: Lotensin 10 MG PO SCH (10:00)
[2021-11-26] MEDS ORDERED: NON-FORMULARY ITEM (Budesonide/Glycopyr/Formoterol [Breztri Aerosphere Inhaler] 10.7 GM Hf IH SCH (10:00)
[2021-11-26] MEDS ORDERED: JARDIANCE PO SCH (10:00)
[2021-11-26] MEDS ORDERED: NON-FORMULARY ITEM (Benazepril Hcl [Lotensin] 20 MG Tablet) PO SCH (10:00)
[2021-11-26] MEDS ORDERED: ECOTRIN 81 MG PO SCH (10:00)
[2021-11-26] MEDS ORDERED: BABY ASPIRIN 81 MG CHEW PO SCH (10:00)
[2021-11-26] MEDS ORDERED: solu-MEDROL 80 MG, Sterile H2O 10 ml 1 ML IV SCH ×2 (14:00)
[2021-11-26] MEDS ORDERED: solu-MEDROL 80 MG, Sterile H2O 10 ml 2 ML IV SCH ×2 (14:00)
--- NOTE | 2021-11-26 18:36 | PCM.SSS ---
History of Present Illness - Chief Complaint Chief Complaint: COPD exacerbation History of Present Illness: is a 71 year old male pt of Dr. Coppola with HTN, COPD, CAD, hx IN, hx CABG, DM, hx TOB and EtOH abuse (quit both several years ago) and renal insufficiency who was admitted through ER with COPD exacerbation. He started having Wheezing, cough, and SOB 6d ago. Yesterday he wasn't feeling well, was brought to ER, had duonebs, 125mg solu-medrol, and 2 L NS. Troponins were neg x 5. His lactate was mildly elevated. eGFR 49.9 on admission (to 51.1 this morning). His CXR showed minimal L lung base atelectasis v infiltrate; CT chest showed no signs of infection. He was continued on solumedrol 125 mg IV q 6h and admitted to med surg. This morning he was feeling much better. His steroids were decreased to 80mg IV q8h. He was not started on any antibiotics. - Review of Systems Respiratory: Cough, Orthopnea, Short Of Breath, Wheezing Cardiac: Edema (chronic, RLE, s/p CABG) Abdominal/Gastrointestinal: Constipation, Other (black stool after taking Pepto Bismol) All Other Systems: Reviewed and Negative Medications & Allergies Home Medications: Home Medication List Aspirin 81 gm Chew [Baby Aspirin 81 mg Chew] 81 mg PO DAILY 05/14/16 [History Confirmed 11/25/21] Benazepril HCl [Lotensin] 20 mg PO DAILY 05/14/16 [History Confirmed 11/25/21] Insulin Aspart [NovoLOG Insulin] 20 unit SQ BID 05/14/16 [History Confirmed 11/25/21] Metoprolol Tartrate 25 mg [Lopressor 25MG Tab] 1 tab PO BID 05/14/16 [History Confirmed 11/25/21] Gabapentin 300 mg PO TID 01/24/18 [History Confirmed 11/25/21] Insulin Detemir [Levemir] 70 units IN UD 01/24/18 [History Confirmed 11/25/21] Metformin HCl 500 mg PO BID 01/24/18 [History Confirmed 11/25/21] Potassium Chloride [Klor-Con Sprinkle] 8 meq PO TID 01/24/18 [History Confirmed 11/25/21] Empagliflozin [Jardiance] 10 mg PO DAILY 05/30/20 [History Confirmed 11/25/21] Budesonide/Glycopyr/Formoterol [Breztri Aerosphere Inhaler] 1 unit IH DAILY 11/25/21 [History Confirmed 11/25/21] Furosemide 40 mg [Lasix 40 MG] 40 mg PO BID 11/25/21 [History Confirmed 11/25/21] Rosuvastatin Calcium 40 mg PO HS 11/25/21 [History Confirmed 11/25/21] Prednisone 20 mg [Deltasone 20 mg] 0 mg PO UD #17 tablet 11/26/21 [Rx] Allergies/Adverse Reactions: Allergies Allergy/AdvReac Type Severity Reaction Status Date / Time No Known Drug Allergies Allergy Verified 07/19/21 07:08 - Past Medical History Past Medical History: Yes Neurological History: No Pertinent History ENT History: No Pertinent History Cardiac History: Coronary Artery Disease, High Cholesterol, Hypertension, Myocardial Infarction ([place]), Other Respiratory History: No Pertinent History Endocrine Medical History: Diabetes Type II Musculoskelatal History: No Pertinent History GI Medical History: Polyps History: Other Pyscho-Social History: No Pertinent History Male Reproductive Disorders: No Pertinent History Comment: HEART CATH 03/24/16, OPEN HEART WITH 6 BYPASSES 04/03/16, kidney stones - Past Surgical History Past Surgical History: Yes Neuro Surgical History: No Pertinent History Cardiac History: CABG, Cardiac Catheterization Respiratory Surgery: No Pertinent History GI Surgical History: Other Genitourinary Surgical Hx: Other Musculskeletal Surgical Hx: No Pertinent History Male Surgical History: No Pertinent History Other Surgical History: several colonoscopies, kidney stenting, toe amputaion - Social History Smoking Status: Former smoker How long have you smoked: 1971 Exposure to second hand smoke: Yes Alcohol: None Drug Use: none Significant Family History: no pertinent family hx - Physical Exam Vital Signs: Vital Signs - 24 hr Temp Pulse Resp BP Pulse Ox 11/26/21 07:19 97.9 F 76 18 113/55 94 L 11/26/21 07:03 72 18 90 L 11/26/21 03:46 97.3 F 75 21 114/64 95 11/26/21 00:00 97.5 F 92 H 14 115/58 90 L 11/25/21 19:59 97.5 F 90 14 147/71 95 11/25/21 19:42 83 16 94 L General Appearance: no apparent distress, obese Neurologic Exam: alert, oriented x 3, cooperative Eye Exam: eyes nml inspection Ears, Nose, Throat Exam: pharynx normal, moist mucous membranes Neck Exam: normal inspection, non-tender, No lymphadenopathy, No thyromegaly Respiratory Exam: diminished breath sounds (fair air exchange), wheezing (scattered, expiratory), No rhonchi Cardiovascular Exam: regular rate/rhythm, normal heart sounds, No murmur Gastrointestinal/Abdomen Exam: soft, normal bowel sounds, No tenderness, No distention, No mass, No guarding, No rebound Extremity Exam: swelling (RLE 1+ edema) Skin Exam: normal color, warm, dry, No rash Results - Labs Lab/Micro Results: Lab Results-Last 24 Hours 11/25/21 11/25/21 11/25/21 Range/Units 19:12 21:08 21:50 WBC (4.0-10.5) K/mm3 RBC (4.1-5.6) M/mm3 Hgb (12.5-18.0) gm/dl Hct (42-50) % MCV (78-100) fl MCH (26-32) pg MCHC (32-36) g/dl RDW (11.5-14.0) % Plt Count (150-450) K/mm3 MPV (7.5-11.0) fl Gran % (36.0-66.0) % Eos # (Auto) (0-0.5) Absolute Lymphs (auto) (1.0-4.6) Absolute Monos (auto) (0.0-1.3) Lymphocytes % (24.0-44.0) % Monocytes % (0.0-12.0) % Eosinophils % (0.00-5.0) % Basophils % (0.0-0.4) % Absolute Granulocytes (1.4-6.9) Basophils # (0-0.4) Sodium (137-145) mmol/L Potassium (3.5-5.1) mmol/L Chloride (98-107) mmol/L Carbon Dioxide (22-30) mmol/L Anion Gap (5-15) MEQ/L BUN (9-20) mg/dL Creatinine (0.66-1.25) mg/dL Estimated GFR ML/MIN Glucose (74-106) mg/dL POC Glucometer 414 H (74 to 106) mg/dL Lactic Acid (0.4-2.0) Calcium (8.4-10.2) mg/dL Total Bilirubin (0.2-1.3) mg/dL AST (17-59) U/L ALT (0-50) U/L Alkaline Phosphatase (38-126) U/L Troponin I < 0.012 < 0.012 (0.000-0.034) ng/mL Serum Total Protein (6.3-8.2) g/dL Albumin (3.5-5.0) g/dL 11/26/21 11/26/21 11/26/21 Range/Units 04:30 04:30 04:47 WBC 11.5 H (4.0-10.5) K/mm3 RBC 4.69 (4.1-5.6) M/mm3 Hgb 14.5 (12.5-18.0) gm/dl Hct 44.4 (42-50) % MCV 94.7 (78-100) fl MCH 30.9 (26-32) pg MCHC 32.7 (32-36) g/dl RDW 14.3 H (11.5-14.0) % Plt Count 195 (150-450) K/mm3 MPV 10.9 (7.5-11.0) fl Gran % 92.0 H (36.0-66.0) % Eos # (Auto) 0.01 (0-0.5) Absolute Lymphs (auto) 0.75 L (1.0-4.6) Absolute Monos (auto) 0.13 (0.0-1.3) Lymphocytes % 6.6 L (24.0-44.0) % Monocytes % 1.1 (0.0-12.0) % Eosinophils % 0.1 (0.00-5.0) % Basophils % 0.2 (0.0-0.4) % Absolute Granulocytes 10.54 H (1.4-6.9) Basophils # 0.02 (0-0.4) Sodium 134 L (137-145) mmol/L Potassium 5.1 (3.5-5.1) mmol/L Chloride 100 (98-107) mmol/L Carbon Dioxide 21 L (22-30) mmol/L Anion Gap 18.3 H (5-15) MEQ/L BUN 33 H (9-20) mg/dL Creatinine 1.45 H (0.66-1.25) mg/dL Estimated GFR 51.1 ML/MIN Glucose 290 H (74-106) mg/dL POC Glucometer (74 to 106) mg/dL Lactic Acid 3.1 H (0.4-2.0) Calcium 9.0 (8.4-10.2) mg/dL Total Bilirubin 0.70 (0.2-1.3) mg/dL AST 24 (17-59) U/L ALT 21 (0-50) U/L Alkaline Phosphatase 64 (38-126) U/L Troponin I (0.000-0.034) ng/mL Serum Total Protein 7.4 (6.3-8.2) g/dL Albumin 4.2 (3.5-5.0) g/dL 11/26/21 Range/Units 07:04 WBC (4.0-10.5) K/mm3 RBC (4.1-5.6) M/mm3 Hgb (12.5-18.0) gm/dl Hct (42-50) % MCV (78-100) fl MCH (26-32) pg MCHC (32-36) g/dl RDW (11.5-14.0) % Plt Count (150-450) K/mm3 MPV (7.5-11.0) fl Gran % (36.0-66.0) % Eos # (Auto) (0-0.5) Absolute Lymphs (auto) (1.0-4.6) Absolute Monos (auto) (0.0-1.3) Lymphocytes % (24.0-44.0) % Monocytes % (0.0-12.0) % Eosinophils % (0.00-5.0) % Basophils % (0.0-0.4) % Absolute Granulocytes (1.4-6.9) Basophils # (0-0.4) Sodium (137-145) mmol/L Potassium (3.5-5.1) mmol/L Chloride (98-107) mmol/L Carbon Dioxide (22-30) mmol/L Anion Gap (5-15) MEQ/L BUN (9-20) mg/dL Creatinine (0.66-1.25) mg/dL Estimated GFR ML/MIN Glucose (74-106) mg/dL POC Glucometer 287 H (74 to 106) mg/dL Lactic Acid (0.4-2.0) Calcium (8.4-10.2) mg/dL Total Bilirubin (0.2-1.3) mg/dL AST (17-59) U/L ALT (0-50) U/L Alkaline Phosphatase (38-126) U/L Troponin I (0.000-0.034) ng/mL Serum Total Protein (6.3-8.2) g/dL Albumin (3.5-5.0) g/dL Accuchecks Date 11/25/21 - Radiology Impressions Radiology Exams & Impressions: Radiology Procedures Category Date Time Status CHEST 1 VIEW (PORTABLE) Stat Exams 11/25/21 09:55 Completed CHEST WITHOUT CONTRAST [CT] Stat Exams 11/25/21 12:12 Completed Assessment/Plan (1) COPD exacerbation Status: Acute Assessment & Plan: When I visited pt this morning, the plan was to continue on decreasing doses of steroids for 1-2 more days. However, in the afternoon the RN called to let me know pt was signing out AMA, and had already completed the paperwork. I did call in a short course of prednisone. He should f/u with Dr. Coppola next week. Code(s): J44.1 - CHRONIC OBSTRUCTIVE PULMONARY DISEASE W (ACUTE) EXACERBATION (2) CAD (coronary artery disease) Status: Chronic Qualifiers: Coronary Disease-Associated Artery/Lesion type: bypass graft [place] vs. transplanted heart: [place] heart Associated angina: without angina Qualified Code(s): I25.810 - Atherosclerosis of coronary artery bypass graft(s) without angina pectoris Code(s): I25.10 - ATHSCL HEART DISEASE OF [place] CORONARY ARTERY W/O ANG PCTRS (3) Diabetes mellitus Status: Chronic Qualifiers: Diabetes mellitus type: type 2 Diabetes mellitus penitentiary insulin use: with rat exterminator use Diabetes mellitus complication status: with kidney complications Diabetes mellitus complication detail: with chronic kidney disease Chronic kidney disease stage: stage 3 (moderate) Code(s): E11.9 - TYPE 2 DIABETES MELLITUS WITHOUT COMPLICATIONS (4) Renal insufficiency Status: Chronic Assessment & Plan: In May 2020 his eGFR was <60 Hospital Summary - Hospital Course Hospital Course: Pt is a [address] Coppola'nargis with COPD and extensive cardiac history admitted through ER with COPD exacerbation. Troponins were negative. He was given IV steroids with improvement; although I explained that he was on a very large dose of steroids and needed to wean down, he left AMA in the afternoon. At that point, after he signed the paperwork, I did send him home on a prednisone taper (1 week). - Vitals & Intake/Output Vital Signs: Vital Signs Temperature 97.9 F 11/26/21 07:19 Pulse Rate 76 11/26/21 07:19 Respiratory Rate 18 11/26/21 07:19 Blood Pressure 113/55 11/26/21 07:19 O2 Sat by Pulse Oximetry 94 L 11/26/21 07:19 Intake & Output: Intake & Output 11/24/21 11/25/21 11/26/21 11/27/21 11:59 11:59 11:59 11:59 Intake Total 960 Balance 960 Weight 119.5 kg 119.5 kg - Lab Result Diagrams: 11/26/21 04:30 11/26/21 04:30 Lab Results-Last 24 Hrs: Lab Results-Last 24 Hours 11/25/21 11/25/21 11/25/21 Range/Units 19:12 21:08 21:50 WBC (4.0-10.5) K/mm3 RBC (4.1-5.6) M/mm3 Hgb (12.5-18.0) gm/dl Hct (42-50) % MCV (78-100) fl MCH (26-32) pg MCHC (32-36) g/dl RDW (11.5-14.0) % Plt Count (150-450) K/mm3 MPV (7.5-11.0) fl Gran % (36.0-66.0) % Eos # (Auto) (0-0.5) Absolute Lymphs (auto) (1.0-4.6) Absolute Monos (auto) (0.0-1.3) Lymphocytes % (24.0-44.0) % Monocytes % (0.0-12.0) % Eosinophils % (0.00-5.0) % Basophils % (0.0-0.4) % Absolute Granulocytes (1.4-6.9) Basophils # (0-0.4) Sodium (137-145) mmol/L Potassium (3.5-5.1) mmol/L Chloride (98-107) mmol/L Carbon Dioxide (22-30) mmol/L Anion Gap (5-15) MEQ/L BUN (9-20) mg/dL Creatinine (0.66-1.25) mg/dL Estimated GFR ML/MIN Glucose (74-106) mg/dL POC Glucometer 414 H (74 to 106) mg/dL Lactic Acid (0.4-2.0) Calcium (8.4-10.2) mg/dL Total Bilirubin (0.2-1.3) mg/dL AST (17-59) U/L ALT (0-50) U/L Alkaline Phosphatase (38-126) U/L Troponin I < 0.012 < 0.012 (0.000-0.034) ng/mL Serum Total Protein (6.3-8.2) g/dL Albumin (3.5-5.0) g/dL 11/26/21 11/26/21 11/26/21 Range/Units 04:30 04:30 04:47 WBC 11.5 H (4.0-10.5) K/mm3 RBC 4.69 (4.1-5.6) M/mm3 Hgb 14.5 (12.5-18.0) gm/dl Hct 44.4 (42-50) % MCV 94.7 (78-100) fl MCH 30.9 (26-32) pg MCHC 32.7 (32-36) g/dl RDW 14.3 H (11.5-14.0) % Plt Count 195 (150-450) K/mm3 MPV 10.9 (7.5-11.0) fl Gran % 92.0 H (36.0-66.0) % Eos # (Auto) 0.01 (0-0.5) Absolute Lymphs (auto) 0.75 L (1.0-4.6) Absolute Monos (auto) 0.13 (0.0-1.3) Lymphocytes % 6.6 L (24.0-44.0) % Monocytes % 1.1 (0.0-12.0) % Eosinophils % 0.1 (0.00-5.0) % Basophils % 0.2 (0.0-0.4) % Absolute Granulocytes 10.54 H (1.4-6.9) Basophils # 0.02 (0-0.4) Sodium 134 L (137-145) mmol/L Potassium 5.1 (3.5-5.1) mmol/L Chloride 100 (98-107) mmol/L Carbon Dioxide 21 L (22-30) mmol/L Anion Gap 18.3 H (5-15) MEQ/L BUN 33 H (9-20) mg/dL Creatinine 1.45 H (0.66-1.25) mg/dL Estimated GFR 51.1 ML/MIN Glucose 290 H (74-106) mg/dL POC Glucometer (74 to 106) mg/dL Lactic Acid 3.1 H (0.4-2.0) Calcium 9.0 (8.4-10.2) mg/dL Total Bilirubin 0.70 (0.2-1.3) mg/dL AST 24 (17-59) U/L ALT 21 (0-50) U/L Alkaline Phosphatase 64 (38-126) U/L Troponin I (0.000-0.034) ng/mL Serum Total Protein 7.4 (6.3-8.2) g/dL Albumin 4.2 (3.5-5.0) g/dL 11/26/21 Range/Units 07:04 WBC (4.0-10.5) K/mm3 RBC (4.1-5.6) M/mm3 Hgb (12.5-18.0) gm/dl Hct (42-50) % MCV (78-100) fl MCH (26-32) pg MCHC (32-36) g/dl RDW (11.5-14.0) % Plt Count (150-450) K/mm3 MPV (7.5-11.0) fl Gran % (36.0-66.0) % Eos # (Auto) (0-0.5) Absolute Lymphs (auto) (1.0-4.6) Absolute Monos (auto) (0.0-1.3) Lymphocytes % (24.0-44.0) % Monocytes % (0.0-12.0) % Eosinophils % (0.00-5.0) % Basophils % (0.0-0.4) % Absolute Granulocytes (1.4-6.9) Basophils # (0-0.4) Sodium (137-145) mmol/L Potassium (3.5-5.1) mmol/L Chloride (98-107) mmol/L Carbon Dioxide (22-30) mmol/L Anion Gap (5-15) MEQ/L BUN (9-20) mg/dL Creatinine (0.66-1.25) mg/dL Estimated GFR ML/MIN Glucose (74-106) mg/dL POC Glucometer 287 H (74 to 106) mg/dL Lactic Acid (0.4-2.0) Calcium (8.4-10.2) mg/dL Total Bilirubin (0.2-1.3) mg/dL AST (17-59) U/L ALT (0-50) U/L Alkaline Phosphatase (38-126) U/L Troponin I (0.000-0.034) ng/mL Serum Total Protein (6.3-8.2) g/dL Albumin (3.5-5.0) g/dL Micro Results-Entire Visit: Accuchecks Date 11/25/21 - Radiology Exams Ordered Rad Exams-Entire Visit: Radiology Procedures Category Date Time Status CHEST 1 VIEW (PORTABLE) Stat Exams 11/25/21 09:55 Completed CHEST WITHOUT CONTRAST [CT] Stat Exams 11/25/21 12:12 Completed - Procedures and Test Procedures and Tests throughout Hospitalization: Therapy Orders & Screens 11/25/21 10:35 Respiratory Therapy Assessment DAILY Comment: 11/25/21 16:30 Respiratory Therapy Assessment DAILY Comment: Diagnosis: COPD exacerbation 11/25/21 19:00 Respiratory MDI BID Comment: Diagnosis: COPD exacerbation - Discharge Disposition: Against Medical Advice Condition: Stable Prescriptions: New Prednisone 20 mg [Deltasone 20 mg] 0 mg PO UD #17 tablet No Action Benazepril HCl [Lotensin] 20 mg PO DAILY Metoprolol Tartrate 25 mg [Lopressor 25MG Tab] 1 tab PO BID Insulin Aspart [NovoLOG Insulin] 20 unit SQ BID Aspirin 81 gm Chew [Baby Aspirin 81 mg Chew] 81 mg PO DAILY Potassium Chloride [Klor-Con Sprinkle] 8 meq PO TID Metformin HCl 500 mg PO BID Insulin Detemir [Levemir] 70 units IN UD Gabapentin 300 mg PO TID Empagliflozin [Jardiance] 10 mg PO DAILY Budesonide/Glycopyr/Formoterol [Breztri Aerosphere Inhaler] 1 unit IH DAILY Furosemide 40 mg [Lasix 40 MG] 40 mg PO BID Rosuvastatin Calcium 40 mg PO HS Follow up with: JAROD COPPOLA [Primary Care Provider] -
== END 2021-11-26 10:00 | disposition left against medical advice (07) ==
LOC: ED 09:22 → MED SURG 14:37
PROVIDERS: ADMIT Family Medicine; ATTEND Family Medicine
DX: J44.1 Chronic obstructive pulmonary disease with (acute) exacerbation (principal); I10 Essential (primary) hypertension; E11.9 Type 2 diabetes mellitus without complications; N28.9 Disorder of kidney and ureter, unspecified; I25.10 Atherosclerotic heart disease of native coronary artery without angina pectoris; I25.2 Old myocardial infarction; Z79.899 Other long term (current) drug therapy; Z95.1 Presence of aortocoronary bypass graft
CPT/HCPCS: 0241U; 36000; 36415; 71045; 71250; 80053; 81015; 82947; 83605; 83880; 84484; 85025; 85610; 85730; 93005; 93268; 94640; 94762; 96360; 96361; 96374; 99285; G0378; 96375; J1817; J2930; A9270-GY

== ENCOUNTER 2022-03-30 03:28 | Emergency (ER) | payer OTHER ==
[2022-03-30] MEDS ORDERED: ANTIVERT 25 MG PO ONE (03:46)
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
[2022-03-30] MEDS ORDERED: ANTIVERT 25 MG ONE (04:05)
[2022-03-30 04:26] LABS: Absolute Neutrophil Ct (ANC) 6.45 x10^3/uL (1.4-6.9); Basophil (Absolute #) 0.13 x10^3/uL (0-0.4); Eosinophil % 5.8 % (0.00-5.0); Eosinophil (Absolute #) 0.61 x10^3/uL (0-0.5); Hematocrit 46.2 % (42-50); Hemoglobin 15.3 g/dL (12.5-18.0); Lymphocyte (Absolute #) 2.45 x10^3/uL (1.0-4.6); Lymphocytes % 23.4 % (24.0-44.0); Mean Cell Volume 93.3 fL (78-100); Mean Corpuscular Hemoglobin 30.9 pg (26-32); Mean Corpuscular Hgb Concent. 33.1 g/dL (32-36); Mean Platelet Volume 10.5 fL (7.5-11.0); Monocyte (Absolute #) 0.78 x10^3/uL (0.0-1.3); Monocytes % 7.5 % (0.0-12.0); Neutrophil % 61.8 % (36.0-66.0); Platelet Count 210 x10^3/uL (150-450); Red Blood Count 4.95 x10^6/uL (4.1-5.6); White Blood Count 10.5 x10^3/uL (4.0-10.5)
[2022-03-30 04:38] LABS: ALBUMIN 4.4 g/dL (3.5-5.0); ANION GAP 15.6 MEQ/L (5-15); BILIRUBIN,TOTAL 0.6 mg/dL (0.2-1.3); Calcium 9.6 mg/dL (8.4-10.2); Creatinine 1 1.54 mg/dL (0.66-1.25); EST GLOMERULAR FILTRATION RATE 47.7 ML/MIN; MAGNESIUM 1.9 mg/dL (1.6-2.3); Potassium 4.1 mmol/L (3.5-5.1); Total Protein 7.3 g/dL (6.3-8.2)
[2022-03-30 04:44] LABS: Appearance CLEAR (CLEAR); Bilirubin NEGATIVE (NEGATIVE); Dipstick done @ ? MAIN LAB; Glucose 500 mg/dL (NEGATIVE); Ketones NEGATIVE (NEGATIVE); Nitrite NEGATIVE (NEGATIVE); Ph 5.5 (5-6); Protein,Urine Dip 100 (Negative); RBC SMALL Ery/ul (0-5); Specific Gravity 1.015 (1.005-1.025); Urobilinogen 0.2 mg/dL (0-1)
[2022-03-30 04:46] LABS: Mucus SLIGHT /HPF (NEGATIVE)
[2022-03-30 05:45] LABS: Bacteria NONE SEEN /HPF (NEGATIVE); RBC NONE SEEN /HPF (0-2)
[2022-03-30 05:46] LABS: Urine Cultured Indicated? NO
[2022-03-30 06:05] VITALS: BP 87/59; PULSE 76
[2022-03-30] MEDS ORDERED: Sodium Chloride 0.9% 500 ML 500 ML IV ONE ×2 (06:24→06:26)
[2022-03-30] MEDS ORDERED: Magnesium 1 Gm / 100 Ml D5W*** 100 ML IV ONE (06:28)
[2022-03-30] MEDS ORDERED: Magnesium 1 Gm / 100 Ml D5W*** 0 ML IV ONE (06:28)
[2022-03-30 06:37] VITALS: O2SAT 96
--- NOTE | 2022-03-30 07:31 | XRAY ---
Indication: Dizziness. Comparison: November 25, 2021 Portable chest clear. Heart not enlarged again with CABG. Bony thorax intact. No new/acute findings. Comment: Preliminary interpretation made by [facility]. No critical discrepancy.
--- NOTE | 2022-03-30 07:33 | XRAY ---
Indication: Dizziness following left head injury. Multiple contiguous axial images obtained through the head without contrast. Comparison: January 08, 2019 Again age-appropriate global atrophy and minimal periventricular degenerative micro-ischemia. No acute intracranial hemorrhage, abnormal extra-axial fluid collection, or mass effect. Fourth ventricle is midline without hydrocephalus. Bony calvarium intact. Paranasal sinuses and mastoid air cells are clear. Impression: Continued nonacute senile brain. Comment: Preliminary interpretation made by [facility]. No critical discrepancy.
== END 2022-03-30 06:38 | disposition left against medical advice (07) ==
LOC: ED 03:28
DX: R42 Dizziness and giddiness (principal); S00.83XA Contusion of other part of head, initial encounter; Y04.2XXA Assault by strike against or bumped into by another person, initial encounter; I10 Essential (primary) hypertension; E78.5 Hyperlipidemia, unspecified; E11.9 Type 2 diabetes mellitus without complications; J44.9 Chronic obstructive pulmonary disease, unspecified; Z79.4 Long term (current) use of insulin; Z79.84 Long term (current) use of oral hypoglycemic drugs; Z79.899 Other long term (current) drug therapy
CPT/HCPCS: 36000; 36415; 70450; 71045; 80053; 81015; 82947; 83605; 83735; 83880; 84484; 85025; 93005; 99284; J3475; A9270-GY

== ENCOUNTER 2023-03-27 06:10 | Day surgery (SDC) | payer OTHER ==
[2023-03-27] MEDS ORDERED: Lactated Ringers 1,000 ML IV SCH (06:30)
[2023-03-27] MEDS ORDERED: CEFAZOLIN 2 GM-D5W BAG** 2 GM/50 ML ML IV SCH (06:30)
[2023-03-27] MEDS ORDERED: Xylocaine 1% Vial 30 ML PF IJ ONE (06:51)
[2023-03-27] MEDS ORDERED: Marcaine Mpf 0.5% Vial 30 Ml ONE (06:51)
[2023-03-27 07:07] LABS: Hematocrit 45.6 % (42-50); Mean Cell Volume 93.6 fL (78-100); Mean Corpuscular Hemoglobin 30.8 pg (26-32); Mean Corpuscular Hgb Concent. 32.9 g/dL (32-36); Mean Platelet Volume 10.6 fL (7.5-11.0); Platelet Count 207 x10^3/uL (150-450); Red Blood Count 4.87 x10^6/uL (4.1-5.6); Red Cell Distribution Width 13.2 % (11.5-14.0); White Blood Count 10.1 x10^3/uL (4.0-10.5)
[2023-03-27 07:21] LABS: ALBUMIN 4.4 g/dL (3.5-5.0); ANION GAP 17.6 MEQ/L (5-15); BILIRUBIN,TOTAL 0.6 mg/dL (0.2-1.3); Creatinine 1 1.34 mg/dL (0.66-1.25); EST GLOMERULAR FILTRATION RATE 55.9 ML/MIN; Potassium 4.5 mmol/L (3.5-5.1); Total Protein 7.6 g/dL (6.3-8.2)
[2023-03-27] MEDS ORDERED: Marcaine 0.5%/Epinephrine 10 ML ONE (07:23)
[2023-03-27] MEDS ORDERED: Decadron 4 MG INJ ONE (07:23)
[2023-03-27 07:40] LABS: INR 0.95 (0.8-3.0); PROTIME 10.4 SECONDS (9.4-12.5)
[2023-03-27] MEDS ORDERED: Versed 2 MG/2 ML Injection ONE ×2 (08:21→08:23)
[2023-03-27] MEDS ORDERED: SUBLIMAZE 100 MCG/2 ML ONE ×2 (08:21→08:37)
[2023-03-27] MEDS ORDERED: DIPRIVAN 200 MG/20 ML IV ONE (08:26)
[2023-03-27] MEDS ORDERED: PHENYLEPHRINE HCL ONE (08:41)
[2023-03-27 09:26] VITALS: BP 134/68; PULSE 65; RESP 16; TEMP 96.8; O2SAT 95
--- NOTE | 2023-03-27 09:39 | XRAY ---
Indication: Left 3rd/4th metatarsal osteotomy. Intraoperative fluoroscopy provided for 28 seconds. 5 digital spot images submitted for interpretation demonstrates osteotomy distal shafts 3rd/4th metatarsals. Correlate with intraoperative findings/report.
--- NOTE | 2023-03-27 10:29 | OP ---
SURGERY DATE: 03/27/2023 SURGERY TIME: 820 PREOPERATIVE DIAGNOSIS: 1. HISTORY OF AMPUTATION LEFT FOOT. 2. DIABETIC PERIPHERAL NEUROPATHY. 3. DIABETES MELLITUS. 4. PRESSURE ULCERATION, DIABETIC FOOT ULCER LEFT 3RD METATARSAL HEAD PLANTAR. 5. GASTROCNEMIUS EQUINUS. POSTOPERATIVE DIAGNOSIS: 1. HISTORY OF AMPUTATION LEFT FOOT. 2. DIABETIC PERIPHERAL NEUROPATHY. 3. DIABETES MELLITUS. 4. PRESSURE ULCERATION, DIABETIC FOOT ULCER LEFT 3RD METATARSAL HEAD PLANTAR. 5. GASTROCNEMIUS EQUINUS. PROCEDURE: 1. Gastrocnemius resection. 2. Floating metatarsal head osteotomy metatarsals 3 and 4. SURGEON: Chetan Black D.P.M. [place]: None. ANESTHESIA: [place] with popliteal block. HEMOSTASIS: A pressure dressing. ESTIMATED BLOOD LOSS: Approximately 5 cc. MATERIALS: 2-0 Vicryl, 3-0 Nylon. INJECTABLES: See anesthesia report for details. INDICATIONS FOR PROCEDURE: Mr. Shelton is a very pleasant 72 year-old male very well known to my service for repetitive ulcerations to the left lower extremity secondary to his gastrocnemius equinus to his left 2nd digit and 2nd metatarsal. He had 2 subsequent procedures where we have had an amputation and a salvage procedure which consisted of a floating metatarsal head osteotomy. At this time, patient is have a subsequent issue to the 3rd metatarsal head where there is a plantar flexed metatarsal head and some gastrocnemius equinus that is resulting in a significant amount of forefoot overload. As a result, patient has had an ulceration which he has been cleared of. An MRI was taken demonstrating no osteomyelitis. From that standpoint, we decided to proceed from a preventative standpoint with a gastrocnemius resection as well as 3rd and 4th floating metatarsal head resections. At this time, the patient understands all risks, complications, and benefits of surgical intervention including, but not limited to, infection; hematoma; seroma; possibility of delayed wound healing, non-wound healing; possibility of need for surgical intervention at a later date; possible loss of limb; and possible loss of life. From that standpoint, plenty of time was allowed for the patient and his to ask questions which were answered to his apparent satisfaction. It is with that we decided to proceed. DESCRIPTION OF PROCEDURE: The patient was brought into the OR after having received Versed and a popliteal block, see anesthesia report for details, to the left lower extremity. The left lower extremity was prepped and draped in the usual sterile fashion and lowered onto the surgical field. At this time, under fluoroscopic guidance, the 3rd and 4th metatarsal necks to the 3rd and 4th metatarsals were identified. A stab incision was made and curved mini-hemostats were utilized to dissect to the level of bone. An 18 mm sagittal saw blade was utilized to resect the 3rd and 4th metatarsal heads in the same fashion subsequently and resect them. Floating metatarsal head was successful demonstrating complete mobilization of the metatarsal head relative to the metatarsal neck. At this time, copious amounts of sterile saline were utilized to flush the pinhole incisions and a single horizontal mattress was utilized with a 3-0 Nylon to coapt the skin edges. At this time, attention was directed to the posteromedial aspect of the left calf at the dell of the gastrocnemius muscle belly. A linear incision was made measuring approximately 3 cm. Blunt dissection was carried down to the level of the fascia and linear incision was once again made and then the gastroc aponeurosis was then identified. From that standpoint, a pediatric speculum was introduced, rotated 90 degrees, and held in place. 10 blade was utilized to resect the gastroc aponeurosis. Scissors were then utilized to resect any constrictor bands. The range of motion was once again tested and deemed to be improved from that standpoint. Copious amounts of sterile saline were utilized to flush the surgical site. 2-0 Vicryl was used to coapt the subcutaneous edges of the skin in a simple interrupted buried type fashion and a 3-0 Nylon was utilized in a horizontal mattress type fashion to juliana the skin edges. Following this, a wet Lap was utilized to cleanse the leg and then dried. A dressing consisting of Betadine, Adaptic, 4 X 4, Kerlix, and Philip was applied to the incision site with the foot orthogonal relative to longitudinal axis of the leg. Patient was then reversed from anesthesia and returned to the PACU with vital signs stable and vascular status intact. The patient handled the anesthesia as well as the procedure without significant complication. Postoperative orders as indicated in the patient's discharge chart.
--- NOTE | 2023-03-27 12:43 | XRAY ---
28 seconds of fluoroscopy was used in surgery for a left 3rd/4th metatarsal osteotomy.
== END 2023-03-27 10:04 | disposition home or self-care (01) ==
LOC: SDC 06:10
PROVIDERS: ATTEND Podiatrist Foot & Ankle Surgery
DX: E11.621 Type 2 diabetes mellitus with foot ulcer (principal); E11.40 Type 2 diabetes mellitus with diabetic neuropathy, unspecified; E11.69 Type 2 diabetes mellitus with other specified complication; Z89.422 Acquired absence of other left toe(s)
CPT/HCPCS: 27687; 28308; 36415; 73630; 76000; 76937; 80053; 82947; 85027; 85610; 85730; J0690; J1100; J2001; J2250; J2371; J2704; J3010

== ENCOUNTER 2023-09-28 05:51 | Day surgery (SDC) | payer OTHER ==
[2023-09-28] MEDS: Lactated Ringers 1,000 ML IV SCH (06:20)
[2023-09-28 06:48] LABS: ALBUMIN 4.2 g/dL (3.5-5.0); ANION GAP 12.1 MEQ/L (5-15); BILIRUBIN,TOTAL 0.9 mg/dL (0.2-1.3); Calcium 9.3 mg/dL (8.4-10.2); Creatinine 1 1.32 mg/dL (0.66-1.25); EST GLOMERULAR FILTRATION RATE 57.3 ML/MIN; Potassium 4.2 mmol/L (3.5-5.1); Total Protein 7.3 g/dL (6.3-8.2)
[2023-09-28] MEDS ORDERED: DIPRIVAN 200 MG/20 ML IV ONE ×2 (07:28→07:54)
[2023-09-28] MEDS ORDERED: Versed 2 MG/2 ML Injection ONE (07:28)
[2023-09-28] MEDS ORDERED: PHENYLEPHRINE HCL ONE (07:39)
[2023-09-28] MEDS ORDERED: Ephedrine Sulfate 50 MG/ML ONE (07:53)
[2023-09-28 08:44] VITALS: BP 152/80; PULSE 67; RESP 18; TEMP 97; O2SAT 95
--- NOTE | 2023-09-28 12:49 | OP ---
SURGERY DATE/TIME: 09/28/2023 0731 PREOPERATIVE DIAGNOSIS: Screening exam. POSTOPERATIVE DIAGNOSIS: Polyp in the ascending colon and sigmoid diverticulosis. PROCEDURE: Colonoscopy with cold forceps biopsy. SURGEON: Dr. Coppola. ANESTHESIA: Medications given by anesthesia department. HISTORY: The patient is a 73-year-old white male patient presenting now for screening colonoscopy. He was appraised of the risks of the procedure including the risk of perforation, phlebitis, untoward reaction to medication, bleeding and missed lesions. The patient verbalized his understanding and desired to have the procedure performed. DESCRIPTION OF PROCEDURE: The patient was given the medications by the anesthesia department. He had continuous pulse oximetry, ECG monitoring and intermittent blood pressure monitoring during the examination. He was placed in the left lateral decubitus position. A digital rectal examination was performed and revealed normal anal sphincter tone, no masses and a normal prostate. The flexible Olympus pediatric colonoscope was used to intubate the rectum. A view of the colon was developed sequentially to the cecum. Upon insertion and withdrawal was noted a polyp approximately 1 cm in size in the ascending colon which was destroyed using multiple passes of the cold forceps biopsy instrument. No other mucosal lesions being noted other than scattered sigmoid diverticula, the scope was removed from the patient who tolerated the procedure well and was sent back to OP recovery in good condition. The prep was noted to be fair.
== END 2023-09-28 08:52 | disposition home or self-care (01) ==
LOC: SDC 05:51
PROVIDERS: ATTEND Family Medicine
DX: Z12.11 Encounter for screening for malignant neoplasm of colon (principal); K57.30 Diverticulosis of large intestine without perforation or abscess without bleeding; D12.2 Benign neoplasm of ascending colon
CPT/HCPCS: 36415; 80053; 93005; 99100; J2250; J2371; J2704

== ENCOUNTER 2024-08-02 17:29 | Observation (INO) | payer OTHER ==
[2024-08-02 18:49] LABS: BASOPHIL % 1.2 % (0.2-1.2); Basophil (Absolute #) 0.08 x10^3/uL (0.01-0.08); Eosinophil % 1.3 % (0.8-7.0); Eosinophil (Absolute #) 0.09 x10^3/uL (0.04-0.54); Hematocrit 43.1 % (40.1-51.0); Hemoglobin 14.2 g/dL (13.7-17.5); IMMATURE GRAN # 0.03 x10^3u/L (0.001-0.031); IMMATURE GRAN % 0.4 % (0.001-0.429); Lymphocyte (Absolute #) 1.22 x10^3/uL (1.32-3.57); Lymphocytes % 18.2 % (21.8-53.1); Mean Cell Volume 92.5 fL (79.0-92.2); Mean Corpuscular Hemoglobin 30.5 pg (25.7-32.2); Mean Corpuscular Hgb Concent. 32.9 g/dL (32.3-36.5); Mean Platelet Volume 10.6 fL (9.4-12.4); Monocyte (Absolute #) 0.89 x10^3/uL (0.30-0.82); Monocytes % 13.3 % (5.3-12.2); Neutrophil % 65.6 % (34.0-67.9); Platelet Count 209 x10^3/uL (163-337); Red Blood Count 4.66 x10^6/uL (4.63-6.08); White Blood Count 6.7 x10^3/uL (4.23-9.07)
--- NOTE | 2024-08-02 18:53 | ERPHSYRPT ---
- History of Present Illness Source: patient, family Exam Limitations: no limitations Patient Subjective Stated Complaint: PT HERE FOR A FALL TODAY, WITH POSSIBLE SYNCOPE. PT HAS HAD A COUGH FOR OVER A WEEK, AND HAS INFECTION TO RIGHT FOOT THAT HE IS ON ANTIBIOTICS FOR. Triage Nursing Assessment: PT ALERT, ARRIVED PER WC, ASSIST OF ONE TO GET TO BED, PT CO PAIN TO RIGHT RIB AREA AND RIGHT HAND. HAS CONTUSION TO RIGHT SIDE OF HEAD, SKIN TEAR TO RIGHT HAND , NO BRUISING TO RIGHT RIB AREA, PT HAS CALLUS TO LEFT FOOT, NO REDNESS OR DRAINAGE NOTED Hx Tetanus, Diphtheria Vaccination/Date Given: No Hx Influenza Vaccination/Date Given: Yes Hx Pneumococcal Vaccination/Date Given: Yes Immunizations Up to Date: Yes <HERNAN PEREZ - Last Filed: 08/02/24 19:00> <JANNETTE CAMPOVERDE - Last Filed: 08/02/24 21:27> - History of Present Illness Time Seen by Provider: 08/02/24 19:00 Physician History: 73 years old male with multiple medical problems including hypertension, hyperlipidemia, coronary artery disease with CABG, diabetes mellitus, issues with balance presented in the ER with a fall and possible syncopal episode. Patient per report was sleeping, suddenly got up and lost balance and passed out with no seizure-like activity. He is back to his baseline. Has a bruising r ight forehead and complaining of pain in the right anterolateral chest wall which hurts to take a deep breath. Patient reports moderate to severe sharp pain with palpation and deep breathing. No injury to the lower extremities. Also has injury to the right hand with superficial skin tears. Patient is not a good historian and history is limited. (HERNAN PEREZ) Allergies/Adverse Reactions: sacubitril [From Entresto] Adverse Reaction (Intermediate, Verified 08/02/24 17:53) valsartan [From Entresto] Adverse Reaction (Intermediate, Verified 08/02/24 17:53) Home Medications: Aspirin 81 gm Chew [Baby Aspirin 81 mg Chew] 81 mg PO DAILY 05/14/16 [History] Benazepril HCl [Lotensin] 20 mg PO DAILY 05/14/16 [History] Insulin Aspart [NovoLOG Insulin] 20 unit SQ BID 05/14/16 [History] Metoprolol Tartrate 25 mg [Lopressor 25MG Tab] 1 tab PO BID 05/14/16 [History] Gabapentin 300 mg PO TID 01/24/18 [History] Metformin HCl 500 mg PO BID 01/24/18 [History] Potassium Chloride [Klor-Con Sprinkle] 8 meq PO TID 01/24/18 [History] Empagliflozin [Jardiance] 10 mg PO DAILY 05/30/20 [History] Furosemide 40 mg [Lasix 40 MG] 40 mg PO BID 11/25/21 [History] Rosuvastatin Calcium 40 mg PO HS 11/25/21 [History] Albuterol Sulfate [Proventil Hfa] 6.7 gm IH QID 03/24/23 [History] Fluticasone Propionate [Fluticasone Propionate Hfa] 12 gm IH DAILY 03/24/23 [History] glyBURIDE [Glyburide] 2.5 mg PO DAILY 03/24/23 [History] Budesonide/Glycopyr/Formoterol [Breztri Aerosphere Inhaler] 2 puffs IH BID 09/17/23 [History] Glyburide 5 mg [Micronase 5 MG] 2.5 mg PO DAILY 09/17/23 [History] Insulin Aspart [NovoLOG Insulin] 25 units SQ BID PRN 09/17/23 [History] Insulin Glargine,Hum.rec.anlog [Basaglar Kwikpen U-100] 70 units SQ DAILY 09/17/23 [History] Loratadine 10 mg [Claritin 10 mg] 10 mg PO DAILY 09/17/23 [History] Nitroglycerin 0.4 mg Tablet [Nitrostat 0.4 MG Tablet] 1 tab PO UD PRN 09/17/23 [History] Travel Risk - International Travel Have you traveled outside of the country in past 3 weeks: No - Emerging Infectious Disease Are you exhibiting symptoms associated with any current EIDs: No <HERNAN PEREZ - Last Filed: 08/02/24 19:00> - Review of Systems Constitutional: Fatigue, Weakness Eyes: No Symptoms Ears, Nose, & Throat: No Symptoms Respiratory: Cough Cardiac: Chest Pain Abdominal/Gastrointestinal: No Symptoms Genitourinary Symptoms: No Symptoms Musculoskeletal: Arthralgias Neurological: Headache <HERNAN PEREZ - Last Filed: 08/02/24 19:00> - Past Medical History Pertinent Past Medical History: Yes Neurological History: No Pertinent History ENT History: No Pertinent History Cardiac History: Coronary Artery Disease, High Cholesterol, Hypertension, Myocardial Infarction ([place]), Other Respiratory History: No Pertinent History Endocrine Medical History: Diabetes Type II Musculoskeletal History: No Pertinent History GI Medical History: Polyps History: Other Psycho-Social History: No Pertinent History Male Reproductive Disorders: No Pertinent History Other Medical History: HEART CATH 03/24/16, OPEN HEART WITH 6 BYPASSES 04/03/16, kidney stones,STENT LEG - Past Surgical History Past Surgical History: Yes Neuro Surgical History: No Pertinent History Cardiac: CABG, Cardiac Catheterization Respiratory: No Pertinent History Gastrointestinal: Other Genitourinary: Other Musculoskeletal: No Pertinent History Male Surgical History: No Pertinent History Other Surgical History: several colonoscopies, kidney stenting, toe amputaion Significant Family History: no pertinent family hx - Social History Smoking Status: Former smoker How long have you smoked: 1971 Exposure to second hand smoke: No Drug Use: none Patient Lives Alone: No - Social Determinants of Health Will the patient participate in the screening: Declined to provide <HERNAN PEREZ - Last Filed: 08/02/24 19:00> - [place] Coma Score Best Eye Response ([place]): (4) open spontaneously Best Verbal Response ([place]): (5) oriented Best Motor Response ([place]): (6) obeys commands M[place] Total: 15 - Physical Exam General Appearance: no apparent distress, alert Head Injury: swelling (Right forehead above the orbital ridge), tenderness Eye Exam: PERRL/EOMI, eyes nml inspection ENT Exam: airway nml, No evidence of ENT injury, No dental injury Neck Exam: supple, trachea midline, full range of motion, normal alignment Respiratory/Chest Exam: chest tenderness (Right anterolateral mid to lower chest wall no crepitus.), decreased breath sounds Gastrointestinal Exam: soft, normal bowel sounds, No tenderness Back Exam: normal inspection Extremity Exam: other (Diabetic foot) Neurologic Exam: alert, oriented x 3, cooperative Skin Exam: normal color SpO2 Interpretation: normal SpO2: 95 O2 Delivery: Room Air <CHRIS,HERNAN - Last Filed: 08/02/24 19:00> - Nursing Vital Signs Nursing Vital Signs: Initial Vital Signs Temperature 97.2 F 08/02/24 17:54 Pulse Rate 81 08/02/24 17:54 Respiratory Rate 22 08/02/24 17:54 Blood Pressure 108/62 08/02/24 17:54 O2 Sat by Pulse Oximetry 94 L 08/02/24 17:54 Pain Scale Pain Intensity 6 - Course EKG Interpreted by Me: RATE (79), Sinus Rhythm, Right [place] Deviation, LAFB, NORMAL INTERVALS, Right Bundle Branch Block, Q-wave <CLAUDY PEREZMIR - Last Filed: 08/02/24 19:00> Ordered Tests: Active Orders 24 hr Category Date Time Status Shipping And Receiving Operator STAT Care 08/02/24 18:37 Active EKG-ER Only STAT Care 08/02/24 18:36 Active IV Insertion STAT Care 08/02/24 18:36 Active Observation [Place in Observation] ROUTINE Care 08/02/24 21:25 Ordered Oxygen-ED Only Nasal Cannula 2 lpm Care 08/02/24 18:36 Active Telemetry q6h Care 08/02/24 21:25 Ordered CERVICAL SPINE WO CONTRAST [CT] Stat Exams 08/02/24 18:36 Taken CHEST WITHOUT CONTRAST [CT] Stat Exams 08/02/24 18:36 Taken HAND (MINIMUM 3 VIEWS) Stat Exams 08/02/24 18:50 Taken HEAD WITHOUT CONTRAST [CT] Stat Exams 08/02/24 18:36 Taken CBC W DIFF Stat Lab 08/02/24 18:30 Completed CMP Stat Lab 08/02/24 18:30 Completed Lactic Acid Stat Lab 08/02/24 18:36 Completed MAGNESIUM Stat Lab 08/02/24 18:30 Completed NT PRO BNPII Stat Lab 08/02/24 18:30 Completed TROPONIN Q4H Lab 08/03/24 02:45 Ordered TROPONIN Q4H Lab 08/02/24 18:30 Completed TROPONIN Q4H Lab 08/02/24 22:45 Ordered Respiratory Therapy Assessment DAILY RT 08/02/24 20:13 Active Transfer Order Routine Transfer 08/02/24 Ordered Medication Summary Discontinued Medications Generic Name Dose Route Start Last Admin Trade Name Freq PRN Reason Stop Dose Admin Albuterol/Ipratropium 3 ml 08/02/24 19:55 08/02/24 20:09 Ipratropium/Albuterol Sulfate 3 Ml Ampul.Neb IH 08/02/24 19:56 3 ml STAT ONE Administration Albuterol/Ipratropium Confirm 08/02/24 20:06 Ipratropium/Albuterol Sulfate 3 Ml Ampul.Neb Administered 08/02/24 20:07 Dose 3 ml IH .STK-MED ONE Fentanyl Citrate 50 mcg 08/02/24 18:37 08/02/24 19:10 Fentanyl Citrate 100 Mcg/2 Ml* Vial IV 08/02/24 18:38 50 mcg STAT ONE Administration Fentanyl Citrate Confirm 08/02/24 19:06 Fentanyl Citrate 100 Mcg/2 Ml* Vial Administered 08/02/24 19:07 Dose 100 mcg .ROUTE .STK-MED ONE Ondansetron HCl 4 mg 08/02/24 18:37 08/02/24 19:11 Ondansetron Hcl 4 Mg/2 Ml Vial IV 08/02/24 18:38 4 mg STAT ONE Administration Ondansetron HCl Confirm 08/02/24 19:05 Ondansetron Hcl 4 Mg/2 Ml Vial Administered 08/02/24 19:06 Dose 4 mg .ROUTE .STK-MED ONE Lab/Rad Data: Laboratory Result Diagrams 08/02/24 18:30 08/02/24 18:30 Laboratory Results 08/02/24 08/02/24 08/02/24 Range/Units 20:00 18:36 18:30 WBC (4.23-9.07) x10^3/uL RBC (4.63-6.08) x10^6/uL Hgb (13.7-17.5) g/dL Hct (40.1-51.0) % MCV (79.0-92.2) fL MCH (25.7-32.2) pg MCHC (32.3-36.5) g/dL RDW (11.6-14.4) % Plt Count (163-337) x10^3/uL MPV (9.4-12.4) fL Gran % (34.0-67.9) % Immature Gran % (Auto) (0.001-0.429) % Nucleat RBC Rel Count (0.00-0.2) % Eos # (Auto) (0.04-0.54) x10^3/uL Immature Gran # (Auto) (0.001-0.031) x10^3u/L Absolute Lymphs (auto) (1.32-3.57) x10^3/uL Absolute Monos (auto) (0.30-0.82) x10^3/uL Absolute Nucleated RBC (0.00-0.012) x10^3u/L Lymphocytes % (21.8-53.1) % Monocytes % (5.3-12.2) % Eosinophils % (0.8-7.0) % Basophils % (0.2-1.2) % Absolute Granulocytes (1.78-5.38) x10^3/uL Basophils # (0.01-0.08) x10^3/uL Sodium (135-145) mmol/L Potassium (3.5-5.1) mmol/L Chloride (98-107) mmol/L Carbon Dioxide (22-30) mmol/L Anion Gap (5-15) MEQ/L BUN (9-20) mg/dL Creatinine (0.66-1.25) mg/dL Estimated GFR ML/MIN Glucose (74-106) mg/dL Lactic Acid 1.5 (0.4-2.0) Calcium (8.4-10.2) mg/dL Magnesium (1.6-2.3) mg/dL Total Bilirubin (0.2-1.3) mg/dL AST (17-59) U/L ALT (0-50) U/L Alkaline Phosphatase (38-126) U/L Troponin I < 0.012 (0.000-0.033) ng/mL NT-Pro-B Natriuret Pep (<300) pg/mL Serum Total Protein (6.3-8.2) g/dL Albumin (3.5-5.0) g/dL Influenza Type A Ag POSITIVE A (NEGATIVE) Influenza Type B Ag NEGATIVE (NEGATIVE) RSV (PCR) NEGATIVE (NEGATIVE) SARS-CoV-2 (PCR) NEGATIVE (NEGATIVE) 08/02/24 08/02/24 Range/Units 18:30 18:30 WBC 6.7 (4.23-9.07) x10^3/uL RBC 4.66 (4.63-6.08) x10^6/uL Hgb 14.2 (13.7-17.5) g/dL Hct 43.1 (40.1-51.0) % MCV 92.5 H (79.0-92.2) fL MCH 30.5 (25.7-32.2) pg MCHC 32.9 (32.3-36.5) g/dL RDW 14.0 (11.6-14.4) % Plt Count 209 (163-337) x10^3/uL MPV 10.6 (9.4-12.4) fL Gran % 65.6 (34.0-67.9) % Immature Gran % (Auto) 0.4 (0.001-0.429) % Nucleat RBC Rel Count 0.0 (0.00-0.2) % Eos # (Auto) 0.09 (0.04-0.54) x10^3/uL Immature Gran # (Auto) 0.03 (0.001-0.031) x10^3u/L Absolute Lymphs (auto) 1.22 L (1.32-3.57) x10^3/uL Absolute Monos (auto) 0.89 H (0.30-0.82) x10^3/uL Absolute Nucleated RBC 0.00 (0.00-0.012) x10^3u/L Lymphocytes % 18.2 L (21.8-53.1) % Monocytes % 13.3 H (5.3-12.2) % Eosinophils % 1.3 (0.8-7.0) % Basophils % 1.2 (0.2-1.2) % Absolute Granulocytes 4.40 (1.78-5.38) x10^3/uL Basophils # 0.08 (0.01-0.08) x10^3/uL Sodium 136 (135-145) mmol/L Potassium 5.1 (3.5-5.1) mmol/L Chloride 100 (98-107) mmol/L Carbon Dioxide 26 (22-30) mmol/L Anion Gap 15.3 H (5-15) MEQ/L BUN 36 H (9-20) mg/dL Creatinine 2.16 H (0.66-1.25) mg/dL Estimated GFR 31.7 ML/MIN Glucose 194 H (74-106) mg/dL Lactic Acid (0.4-2.0) Calcium 9.6 (8.4-10.2) mg/dL Magnesium 2.6 H (1.6-2.3) mg/dL Total Bilirubin 0.70 (0.2-1.3) mg/dL AST 48 (17-59) U/L ALT 34 (0-50) U/L Alkaline Phosphatase 83 (38-126) U/L Troponin I (0.000-0.033) ng/mL NT-Pro-B Natriuret Pep 82.1 (<300) pg/mL Serum Total Protein 7.1 (6.3-8.2) g/dL Albumin 4.0 (3.5-5.0) g/dL Influenza Type A Ag (NEGATIVE) Influenza Type B Ag (NEGATIVE) RSV (PCR) (NEGATIVE) SARS-CoV-2 (PCR) (NEGATIVE) <HERNAN PEREZ - Last Filed: 08/02/24 19:00> - Progress Progress: pain not gone completely, re-examined <JNANETTE CAMPOVERDE - Last Filed: 08/02/24 21:27> - Progress Progress Note: 08/02/24 19:00 Workup is pending, care is transferred to Dr. Campoverde at end of my shift for reevaluation and final disposition. (HERNAN PEREZ) 08/02/24 19:13 I assumed care for pt from Dr Perez at 1900 08/02/24 21:21 pt positive for flu A pt continues to be wheezy on exam b/l, continues to complain of right sided rib discomfort, continues to be on 2L nc i discussed pt case w/ hospitalist Dr Marion who is willing to accept for obs 08/02/24 21:26 CT imaging negative for acute process in chest/neck/head hand xr negative for acute fx (JANNETTE CAMPOVERDE) Medical Desision Making - Diagnostic Testing Diagnostic test were ordered, analyzed, and reviewed by me: Yes Radiological Interpretation: Interpreted by me, Reviewed by me, Teleradiologist Report - Risk of complications The pt has a high risk of morbidity or mortality based on: Decision regarding hospitilization or escalation of hosp level of care <JANNETTE CAMPOVERDE - Last Filed: 08/02/24 21:27> <HERNAN PEREZ - Last Filed: 08/02/24 19:00> - Departure Departure Disposition: Observation Critical Care Time: No <JANNETTE CAMPOVERDE - Last Filed: 08/02/24 21:27> - Departure Clinical Impression: Influenza A, Acute hypoxic respiratory failure Fall at home Qualifiers: Encounter type: initial encounter Qualified Code(s): W19.XXXA - Unspecified fall, initial encounter; Y92.009 - Unspecified place in unspecified non- institutional (private) residence as the place of occurrence of the external cause Condition: Stable Referrals: JAROD LEWIS [Primary Care Provider] - Follow up/PCP as directed
[2024-08-02] MEDS ORDERED: Zofran 4 MG/2 ML VIAL ONE (19:05)
[2024-08-02] MEDS ORDERED: SUBLIMAZE 100 MCG/2 ML ONE (19:06)
[2024-08-02] MEDS: SUBLIMAZE 100 MCG/2 ML IV ONE (19:10)
[2024-08-02] MEDS: Zofran 4 MG/2 ML VIAL IV ONE (19:11)
[2024-08-02 19:15] LABS: ANION GAP 15.3 MEQ/L (5-15); BILIRUBIN,TOTAL 0.7 mg/dL (0.2-1.3); Calcium 9.6 mg/dL (8.4-10.2); Creatinine 1 2.16 mg/dL (0.66-1.25); EST GLOMERULAR FILTRATION RATE 31.7 ML/MIN; MAGNESIUM 2.6 mg/dL (1.6-2.3); NT PRO BNPII 82.1 pg/mL (<300); Potassium 5.1 mmol/L (3.5-5.1); Total Protein 7.1 g/dL (6.3-8.2)
[2024-08-02] MEDS ORDERED: DUONEB 0.5-3 MG/3 ml Neb IH ONE (20:06)
[2024-08-02] MEDS: DUONEB 0.5-3 MG/3 ml Neb IH ONE (20:09)
[2024-08-02 20:51] LABS: INFLUENZA B NEGATIVE (NEGATIVE); RESPIRATORY SYNCTIAL VIRUS NEGATIVE (NEGATIVE); SARS-CoV-2 Xpert Express NEGATIVE (NEGATIVE)
[2024-08-02 20:53] LABS: INFLUENZA A POSITIVE (NEGATIVE)
[2024-08-02] MEDS ORDERED: TYLENOL 325 MG PO PRN (22:25)
[2024-08-02] MEDS ORDERED: DUONEB 0.5-3 MG/3 ml Neb IH PRN (22:25)
[2024-08-02] MEDS ORDERED: CLARITIN 10 MG PO PRN (22:32)
[2024-08-02] MEDS: Sodium Chloride 0.9% 1000 ML 1,000 ML IV SCH (23:53)
--- NOTE | 2024-08-02 23:58 | PCM.HP ---
History of Present Illness - Chief Complaint Chief Complaint: fall Date: 08/02/24 History of Present Illness: is a 73 year old male with history of COPD, CHF, hypertension, CAD, diabetes, who is here after a fall. Patient has noted 1 week of cough, generalized weakness and myalgias. Today, he jumped quickly out of bed, and walked a few steps when he had an episode of syncope. He awoke on the floor, witnessed by his . No palpitations prior to the event, no bowel or bladder incontinence, no witnessed tonic-clonic activity. He denies any lightheadedness, but notes he has had very poor p.o. intake for the last week secondary to his general malaise and feeling crummy. In the ED, he was noted to be wheezing, although he was stable on room air at that time. He says his breathing is better now after getting a breathing treatment in the ED. - Review of Systems All Other Systems: Reviewed and Negative Medications & Allergies Home Medications: Home Medication List Aspirin 81 gm Chew [Baby Aspirin 81 mg Chew] 81 mg PO DAILY 05/14/16 [History Confirmed 08/02/24] Benazepril HCl [Lotensin] 20 mg PO DAILY 05/14/16 [History Confirmed 08/02/24] Metoprolol Tartrate 25 mg [Lopressor 25MG Tab] 1 tab PO BID 05/14/16 [History Confirmed 08/02/24] Gabapentin 300 mg PO BID 01/24/18 [History Confirmed 08/02/24] Metformin HCl 800 mg PO BID 01/24/18 [History Confirmed 08/02/24] Furosemide 40 mg [Lasix 40 MG] 40 mg PO BID 11/25/21 [History Confirmed 08/02/24] Rosuvastatin Calcium 40 mg PO HS 11/25/21 [History Confirmed 08/02/24] glyBURIDE [Glyburide] 5 mg PO DAILY 03/24/23 [History Confirmed 08/02/24] Budesonide/Glycopyr/Formoterol [Breztri Aerosphere Inhaler] 2 puffs IH BID 09/17/23 [History Confirmed 08/02/24] Insulin Aspart [NovoLOG Insulin] 25 units SQ BID 09/17/23 [History Confirmed 08/02/24] Insulin Glargine,Hum.rec.anlog [Basaglar Kiarraikpen U-100] 70 units SQ DAILY 09/17/23 [History Confirmed 08/02/24] Loratadine 10 mg [Claritin 10 mg] 10 mg PO DAILY PRN 09/17/23 [History Confirmed 08/02/24] Nitroglycerin 0.4 mg Tablet [Nitrostat 0.4 MG Tablet] 1 tab PO UD PRN 09/17/23 [History Confirmed 08/02/24] Albuterol 2.5 mg/3 ml Neb [Proventil 2.5 mg/3 ml Neb] 2.5 mg IH Q4H PRN 08/02/24 [History Confirmed 08/02/24] Empagliflozin [Jardiance] 25 mg PO DAILY 08/02/24 [History Confirmed 08/02/24] Potassium Chloride 8 meq PO BID 08/02/24 [History Confirmed 08/02/24] Allergies/Adverse Reactions: Allergies Allergy/AdvReac Type Severity Reaction Status Date / Time sacubitril [From Entresto] AdvReac Intermediate Verified 08/02/24 22:43 valsartan [From Entresto] AdvReac Intermediate Verified 08/02/24 22:43 - Past Medical History Past Medical History: Yes Neurological History: No Pertinent History ENT History: Cataracts Cardiac History: Coronary Artery Disease, High Cholesterol, Hypertension, Myocardial Infarction ([place]), Peripheral Vascular Disease, Other Respiratory History: COPD, Pneumonia Endocrine Medical History: Diabetes Type II Musculoskelatal History: No Pertinent History GI Medical History: Polyps History: Other Pyscho-Social History: No Pertinent History Male Reproductive Disorders: No Pertinent History Comment: kidney stone - Past Surgical History Past Surgical History: Yes Neuro Surgical History: No Pertinent History Cardiac History: CABG, Cardiac Catheterization Respiratory Surgery: No Pertinent History GI Surgical History: No Pertinent History Genitourinary Surgical Hx: Other Musculskeletal Surgical Hx: Amputation, Orthopedic Surgery Male Surgical History: No Pertinent History Other Surgical History: CABG X 6 04/03/16, vascular stent in groin, lithotripsy, left great toe amputaion, and left foot tendon release Significant Family History: no pertinent family hx - Social History Smoking Status: Former smoker How long have you smoked: 1972 Exposure to second hand smoke: No Alcohol: None Drug Use: none - Social Determinants of Health Will the patient participate in the screening: Declined to provide - Physical Exam Vital Signs: Vital Signs - 24 hr Temp Pulse Resp BP BP Pulse Ox 08/02/24 21:01 88 15 94/75 95 08/02/24 20:30 86 120/57 93 L 08/02/24 20:09 79 22 94 L 08/02/24 20:00 82 18 130/69 100 08/02/24 19:30 80 15 124/73 94 L 08/02/24 19:25 78 137/76 85 L 08/02/24 19:01 95 08/02/24 18:30 77 13 125/78 94 L 08/02/24 18:29 78 24 95/69 95 08/02/24 18:28 76 19 95/69 94 L 08/02/24 18:20 78 25 H 95 08/02/24 18:10 82 20 95 08/02/24 18:05 81 27 H 95 08/02/24 17:54 97.2 F 81 22 108/62 94 L General Appearance: no apparent distress Neurologic Exam: alert, oriented x 3, No motor deficits, No sensory deficit, No facial droop, No slurred speech Eye Exam: eyes nml inspection, No scleral icterus Ears, Nose, Throat Exam: dry mucous membranes Neck Exam: non-tender, full range of motion Respiratory Exam: normal breath sounds, lungs clear, other (Currently on 2 L oxygen by nasal cannula, but nurse noted that his SpO2 was 94% on room air.), No respiratory distress, No wheezing Cardiovascular Exam: regular rate/rhythm, normal heart sounds, No edema Gastrointestinal/Abdomen Exam: No tenderness, No distention Back Exam: normal inspection, normal range of motion Extremity Exam: normal range of motion, No joint swelling Skin Exam: normal color, No rash Results - Labs Lab/Micro Results: Lab Results-Last 24 Hours 08/02/24 08/02/24 08/02/24 Range/Units 18:30 18:30 18:30 WBC 6.7 (4.23-9.07) x10^3/uL RBC 4.66 (4.63-6.08) x10^6/uL Hgb 14.2 (13.7-17.5) g/dL Hct 43.1 (40.1-51.0) % MCV 92.5 H (79.0-92.2) fL MCH 30.5 (25.7-32.2) pg MCHC 32.9 (32.3-36.5) g/dL RDW 14.0 (11.6-14.4) % Plt Count 209 (163-337) x10^3/uL MPV 10.6 (9.4-12.4) fL Gran % 65.6 (34.0-67.9) % Immature Gran % (Auto) 0.4 (0.001-0.429) % Nucleat RBC Rel Count 0.0 (0.00-0.2) % Eos # (Auto) 0.09 (0.04-0.54) x10^3/uL Immature Gran # (Auto) 0.03 (0.001-0.031) x10^3u/L Absolute Lymphs (auto) 1.22 L (1.32-3.57) x10^3/uL Absolute Monos (auto) 0.89 H (0.30-0.82) x10^3/uL Absolute Nucleated RBC 0.00 (0.00-0.012) x10^3u/L Lymphocytes % 18.2 L (21.8-53.1) % Monocytes % 13.3 H (5.3-12.2) % Eosinophils % 1.3 (0.8-7.0) % Basophils % 1.2 (0.2-1.2) % Absolute Granulocytes 4.40 (1.78-5.38) x10^3/uL Basophils # 0.08 (0.01-0.08) x10^3/uL Sodium 136 (135-145) mmol/L Potassium 5.1 (3.5-5.1) mmol/L Chloride 100 (98-107) mmol/L Carbon Dioxide 26 (22-30) mmol/L Anion Gap 15.3 H (5-15) MEQ/L BUN 36 H (9-20) mg/dL Creatinine 2.16 H (0.66-1.25) mg/dL Estimated GFR 31.7 ML/MIN Glucose 194 H (74-106) mg/dL POC Glucometer (74 to 106) mg/dL Lactic Acid (0.4-2.0) Calcium 9.6 (8.4-10.2) mg/dL Magnesium 2.6 H (1.6-2.3) mg/dL Total Bilirubin 0.70 (0.2-1.3) mg/dL AST 48 (17-59) U/L ALT 34 (0-50) U/L Alkaline Phosphatase 83 (38-126) U/L Troponin I < 0.012 (0.000-0.033) ng/mL NT-Pro-B Natriuret Pep 82.1 (<300) pg/mL Serum Total Protein 7.1 (6.3-8.2) g/dL Albumin 4.0 (3.5-5.0) g/dL Influenza Type A Ag (NEGATIVE) Influenza Type B Ag (NEGATIVE) RSV (PCR) (NEGATIVE) SARS-CoV-2 (PCR) (NEGATIVE) 08/02/24 08/02/24 08/02/24 Range/Units 18:36 20:00 22:15 WBC (4.23-9.07) x10^3/uL RBC (4.63-6.08) x10^6/uL Hgb (13.7-17.5) g/dL Hct (40.1-51.0) % MCV (79.0-92.2) fL MCH (25.7-32.2) pg MCHC (32.3-36.5) g/dL RDW (11.6-14.4) % Plt Count (163-337) x10^3/uL MPV (9.4-12.4) fL Gran % (34.0-67.9) % Immature Gran % (Auto) (0.001-0.429) % Nucleat RBC Rel Count (0.00-0.2) % Eos # (Auto) (0.04-0.54) x10^3/uL Immature Gran # (Auto) (0.001-0.031) x10^3u/L Absolute Lymphs (auto) (1.32-3.57) x10^3/uL Absolute Monos (auto) (0.30-0.82) x10^3/uL Absolute Nucleated RBC (0.00-0.012) x10^3u/L Lymphocytes % (21.8-53.1) % Monocytes % (5.3-12.2) % Eosinophils % (0.8-7.0) % Basophils % (0.2-1.2) % Absolute Granulocytes (1.78-5.38) x10^3/uL Basophils # (0.01-0.08) x10^3/uL Sodium (135-145) mmol/L Potassium (3.5-5.1) mmol/L Chloride (98-107) mmol/L Carbon Dioxide (22-30) mmol/L Anion Gap (5-15) MEQ/L BUN (9-20) mg/dL Creatinine (0.66-1.25) mg/dL Estimated GFR ML/MIN Glucose (74-106) mg/dL POC Glucometer (74 to 106) mg/dL Lactic Acid 1.5 (0.4-2.0) Calcium (8.4-10.2) mg/dL Magnesium (1.6-2.3) mg/dL Total Bilirubin (0.2-1.3) mg/dL AST (17-59) U/L ALT (0-50) U/L Alkaline Phosphatase (38-126) U/L Troponin I < 0.012 (0.000-0.033) ng/mL NT-Pro-B Natriuret Pep (<300) pg/mL Serum Total Protein (6.3-8.2) g/dL Albumin (3.5-5.0) g/dL Influenza Type A Ag POSITIVE A (NEGATIVE) Influenza Type B Ag NEGATIVE (NEGATIVE) RSV (PCR) NEGATIVE (NEGATIVE) SARS-CoV-2 (PCR) NEGATIVE (NEGATIVE) 08/02/24 Range/Units 22:35 WBC (4.23-9.07) x10^3/uL RBC (4.63-6.08) x10^6/uL Hgb (13.7-17.5) g/dL Hct (40.1-51.0) % MCV (79.0-92.2) fL MCH (25.7-32.2) pg MCHC (32.3-36.5) g/dL RDW (11.6-14.4) % Plt Count (163-337) x10^3/uL MPV (9.4-12.4) fL Gran % (34.0-67.9) % Immature Gran % (Auto) (0.001-0.429) % Nucleat RBC Rel Count (0.00-0.2) % Eos # (Auto) (0.04-0.54) x10^3/uL Immature Gran # (Auto) (0.001-0.031) x10^3u/L Absolute Lymphs (auto) (1.32-3.57) x10^3/uL Absolute Monos (auto) (0.30-0.82) x10^3/uL Absolute Nucleated RBC (0.00-0.012) x10^3u/L Lymphocytes % (21.8-53.1) % Monocytes % (5.3-12.2) % Eosinophils % (0.8-7.0) % Basophils % (0.2-1.2) % Absolute Granulocytes (1.78-5.38) x10^3/uL Basophils # (0.01-0.08) x10^3/uL Sodium (135-145) mmol/L Potassium (3.5-5.1) mmol/L Chloride (98-107) mmol/L Carbon Dioxide (22-30) mmol/L Anion Gap (5-15) MEQ/L BUN (9-20) mg/dL Creatinine (0.66-1.25) mg/dL Estimated GFR ML/MIN Glucose (74-106) mg/dL POC Glucometer 290 H (74 to 106) mg/dL Lactic Acid (0.4-2.0) Calcium (8.4-10.2) mg/dL Magnesium (1.6-2.3) mg/dL Total Bilirubin (0.2-1.3) mg/dL AST (17-59) U/L ALT (0-50) U/L Alkaline Phosphatase (38-126) U/L Troponin I (0.000-0.033) ng/mL NT-Pro-B Natriuret Pep (<300) pg/mL Serum Total Protein (6.3-8.2) g/dL Albumin (3.5-5.0) g/dL Influenza Type A Ag (NEGATIVE) Influenza Type B Ag (NEGATIVE) RSV (PCR) (NEGATIVE) SARS-CoV-2 (PCR) (NEGATIVE) - Radiology Impressions Radiology Exams & Impressions: Radiology Procedures Category Date Time Status CERVICAL SPINE WO CONTRAST [CT] Stat Exams 08/02/24 18:36 Taken CHEST WITHOUT CONTRAST [CT] Stat Exams 08/02/24 18:36 Taken HAND (MINIMUM 3 VIEWS) Stat Exams 08/02/24 18:50 Taken HEAD WITHOUT CONTRAST [CT] Stat Exams 08/02/24 18:36 Taken Reports are not currently available from radiology, but per ED physician, no fractures noted. - Other Procedures and Tests Respiratory Therapy 08/02/24 20:13 Respiratory Therapy Assessment DAILY 08/02/24 22:25 Oxygen Nasal Cannula 2 lpm Respiratory Therapy Consult ONCE Assessment/Plan (1) Syncope Current Visit: Yes Status: Acute Assessment & Plan: 73-year-old with history of COPD, CHF, hypertension, CAD, and type 2 diabetes, here with DUNIA, syncope and influenza A. ## Acute kidney injury with creatinine up to 2.2 from his baseline of 1.3. Lik sirena due to poor oral intake in the setting of recent influenza. Likely the cause of his syncope (see below). Patient history of CHF and is on Lasix at home. Hold home Lasix Hold benazepril and Jardiance Give gentle normal saline at 50 mL/h Repeat BMP in the morning ## Syncope likely orthostatic, secondary to poor oral intake. No warning symptoms or signs to be concern for cardiogenic or neurologic syncope. Monitor on telemetry ## Influenza A with myalgias and generalized weakness and cough, but not currently requiring oxygen replacement. Onset of symptoms was 7 days ago, and th e patient does not have pneumonia or true need for oxygen, so no indication for oseltamivir. His prior reported wheezing has resolved currently Continue PRN bronchodilators ## Type 2 diabetes uncontrolled, hemoglobin A1c 8.3. Hold home Jardiance and metformin in the setting of DUNIA Hold glyburide given uncertain p.o. intake Continue home Lantus, but decrease from 70 units down to 50 units daily Continue NovoLog but decrease to [address] on high-dose sliding scale insulin ## COPD currently not really requiring oxygen and no wheezing. No evidence of acute exacerbation. PRN bronchodilators Continue home Spiriva, Breztri inhaler ## Hypertension blood pressure currently controlled. Holding home benazepril secondary to DUNIA Continue metoprolol 25 mg BID CODE STATUS: DNR (confirmed with patient today) Prophylaxis: Heparin BID Diet: Diabetic Dispo: Place in observation, expect patient to go home in the next day or so Code(s): R55 - SYNCOPE AND COLLAPSE Telemedicine Encounter - Telemedicine Encounter Telemedicine Encounter: "The entirety of this encounter was performed via Telemedicine" This visit was performed using real-time audio and video connection between my location and thepatients locationwith the assistance of a surrogateat the patients location. Written or verbal consent was obtained from the patient/guardian to perform this visit [facility]. Any patient questions regarding the telemedicine interaction were answered.
[2024-08-03] MEDS ORDERED: PROVENTIL 2.5 MG/3 ML NEB IH PRN (00:14)
[2024-08-03] MEDS: NORCO 5/325 MG PO PRN (00:28)
[2024-08-03 06:14] LABS: Hemoglobin 14.4 g/dL (13.7-17.5); Mean Cell Volume 93.4 fL (79.0-92.2); Mean Corpuscular Hemoglobin 29.9 pg (25.7-32.2); Mean Platelet Volume 10.5 fL (9.4-12.4); Platelet Count 236 x10^3/uL (163-337); Red Blood Count 4.82 x10^6/uL (4.63-6.08); Red Cell Distribution Width 14.1 % (11.6-14.4); White Blood Count 11.1 x10^3/uL (4.23-9.07)
[2024-08-03] MEDS: HUMALOG SQ PRN (06:44)
[2024-08-03 06:47] LABS: ANION GAP 23.3 MEQ/L (5-15); Calcium 9.1 mg/dL (8.4-10.2); Creatinine 1 2.53 mg/dL (0.66-1.25); EST GLOMERULAR FILTRATION RATE 26.3 ML/MIN; MAGNESIUM 2.5 mg/dL (1.6-2.3)
[2024-08-03] MEDS ORDERED: FLUTICASONE-SALMETEROL 250-50 IH SCH (07:00)
[2024-08-03 07:11] LABS: Potassium 6.4 mmol/L (3.5-5.1)
[2024-08-03] MEDS: Kayexylate 15 GM/60 ML PO ONE ×2 (07:41→11:06)
[2024-08-03] MEDS ORDERED: FLUTICASONE-SALMETEROL 250-50 IH ONE (08:09)
[2024-08-03] MEDS: Spiriva 18 Mcg/Cap Inhaler IH SCH (08:12)
[2024-08-03] MEDS: FLUTICASONE-SALMETEROL 250-50 IH SCH (08:21)
[2024-08-03] MEDS: Lantus Insulin SQ SCH (08:31)
[2024-08-03] MEDS: HUMALOG SQ SCH (08:31)
--- NOTE | 2024-08-03 08:37 | XRAY ---
Indication: Syncope. Pain. Status post fall. Multiple contiguous axial images obtained through the head without contrast. Comparison: March 30, 2022 Again age-appropriate global atrophy and minimal periventricular degenerative micro-ischemia. No acute intracranial hemorrhage, abnormal extra-axial fluid collection, or mass effect. Fourth ventricle is midline without hydrocephalus. Bony calvarium intact. Mild mucosal thickening both ethmoid and left maxillary sinuses. Mastoid air cells are clear. Impression: Continued nonacute senile brain. Incidental paranasal sinus disease.
--- NOTE | 2024-08-03 08:41 | XRAY ---
Indication: Syncope. Pain. Status post fall. Multiple contiguous axial images obtained through the cervical spine. Sagittal and coronal reformatted images obtained. Comparison: None Osseous structures demineralized. Mild atlantoaxial degenerative changes. No acute fracture, suspicious bony lesions, or spinal canal stenosis. Sagittal and coronal reformatted images demonstrate normal alignment with vertebral body heights/disc spaces maintained. Mild levoscoliosis. No acute fracture, subluxation, or jumped facet. Normal appearing craniocervical junction. Visualized noncontrasted soft tissues demonstrates scattered carotid calcifications bilaterally. CT head and CT chest reported separately. Impression: 1. Negative acute fracture/subluxation. 2. Chronic findings including osteopenia, atlantoaxial degenerative changes, and arteriosclerotic disease.
--- NOTE | 2024-08-03 08:45 | XRAY ---
Indication: Rib pain. Status post fall. Multiple contiguous axial images obtained through the chest without contrast. Comparison: September 09, 2023 Lungs again demonstrates mild pulmonary emphysema with scattered fibrosis/scarring and tiny right middle lobe calcified granuloma. No suspicious pulmonary mass/nodule, infiltrate, effusion, or pneumothorax. Heart not enlarged again with CABG. Aorta again normal in course and caliber with mild scattered calcifications. No pathologic mediastinal lymphadenopathy. Bony thorax intact again with osteopenia, mild degenerative changes throughout spine, and sternotomy wires. Limited upper abdomen again demonstrates scattered arteriosclerotic calcifications. Impression: Again chronic findings including pulmonary emphysema, fibrosis/scarring, arteriosclerotic disease, chronic bony findings, and old granulomatous disease. No new/acute findings on this noncontrast exam.
--- NOTE | 2024-08-03 08:49 | XRAY ---
Indication: Pain following fall. Comparison: None 3 view right hand demonstrates osteopenia and moderate scattered vascular calcifications. No acute bony, articular, or soft tissue abnormalities.
[2024-08-03] MEDS: HEPARIN 5000 UNITS/0.5 ML (HIGH RISK MED) SQ SCH (09:46)
[2024-08-03] MEDS: Lopressor 25MG Tab PO SCH (09:47)
[2024-08-03] MEDS: ECOTRIN 81 MG PO SCH (09:47)
[2024-08-03] MEDS ORDERED: NON-FORMULARY ITEM (Budesonide/Glycopyr/Formoterol [Breztri Aerosphere Inhaler] 10.7 GM Hf IH SCH (10:00)
[2024-08-03] MEDS ORDERED: BABY ASPIRIN 81 MG CHEW PO SCH (10:00)
[2024-08-03] MEDS ORDERED: NON-FORMULARY ITEM (Insulin Glargine,Hum.Rec.Anlog [Basaglar Kwikpen U-100] 100 UNIT/ML In SQ SCH (10:00)
[2024-08-03] MEDS ORDERED: NON-FORMULARY ITEM (Insulin Aspart** [Novolog Insulin**] 1 UNIT Unit) SQ SCH (10:00)
[2024-08-03 10:21] LABS: ANION GAP 20.7 MEQ/L (5-15); Calcium 9.1 mg/dL (8.4-10.2); Creatinine 1 2.71 mg/dL (0.66-1.25); EST GLOMERULAR FILTRATION RATE 24.2 ML/MIN; Potassium 5.7 mmol/L (3.5-5.1)
--- NOTE | 2024-08-03 13:00 | PCM.NOTE ---
Date and Time: 08/03/24 1253 Subjective Assessment: Reports some abdominal and chest wall discomfort with coughing paroxysms. Denies any hematuria or pyuria. 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, normal mood/affect, nml cerebellar function Skin Exam: normal color Wound Assessment: Skin/Wound Assessment Wound/Incision Assessment Start: 08/02/24 23:40 Text: Status: Active Freq: Q6H Protocol: Document 08/03/24 07:57 FRANSISCO (Rec: 08/03/24 08:08 FRANSISCO [id number]) Wound/Incision Assessment Right Hand Wound Assessment Shift Assessment Wound Type Skin Tear Wound Stage Non Pressure Wound Drainage Amount Minimal Drainage Description Sanguineous Drainage Odor None/Absent Comment DRESSING IN PLACE Left Foot Wound Assessment Shift Assessment Wound Type DIABETIC DECUBITUS Wound Stage Non Pressure Wound Drainage Amount None Drainage Odor None/Absent Comment OPEN TO AIR, NO DRAINGE NOTED Eye Exam: PERRL, EOMI Ears, Nose, Throat Exam: normal ENT inspection Neck Exam: normal inspection, non-tender, full range of motion Respiratory Exam: normal breath sounds, lungs clear Cardiovascular Exam: regular rate/rhythm, normal heart sounds Gastrointestinal/Abdomen Exam: soft, normal bowel sounds Extremity Exam: normal inspection, normal range of motion Back Exam: normal range of motion Objective Data Vital Signs: Vital Signs - 24 hr Temp Pulse Resp BP BP Pulse Ox 08/03/24 12:00 98.9 F 89 19 145/65 92 L 08/03/24 08:00 97.6 F 91 H 19 123/59 93 L 08/03/24 07:00 93 H 18 92 L 08/03/24 04:00 97.3 F 87 22 142/64 92 L 08/03/24 00:05 86 21 92 L 08/03/24 00:00 97.5 F 91 H 20 121/85 91 L 08/02/24 23:04 97.2 F 88 15 95/69 95 08/02/24 21:01 88 15 94/75 95 08/02/24 20:30 86 120/57 93 L 08/02/24 20:09 79 22 94 L 08/02/24 20:00 82 18 130/69 100 08/02/24 19:30 80 15 124/73 94 L 08/02/24 19:25 78 137/76 85 L 08/02/24 19:01 95 08/02/24 18:30 77 13 125/78 94 L 08/02/24 18:29 78 24 95/69 95 08/02/24 18:28 76 19 95/69 94 L 08/02/24 18:20 78 25 H 95 08/02/24 18:10 82 20 95 08/02/24 18:05 81 27 H 95 08/02/24 17:54 97.2 F 81 22 108/62 94 L Pain Assessment - Last Documented Pain Intensity 6 Pain Scale Used 0-10 Pain Scale Intake and Output: Intake & Output 08/01/24 08/02/24 08/03/24 08/04/24 11:59 11:59 11:59 11:59 Intake Total 240 Output Total 400 Balance -160 Weight 122.1 kg Lab Results: Lab Results-Last 24 Hours 08/02/24 08/02/24 08/02/24 Range/Units 18:30 18:30 18:30 WBC 6.7 (4.23-9.07) x10^3/uL RBC 4.66 (4.63-6.08) x10^6/uL Hgb 14.2 (13.7-17.5) g/dL Hct 43.1 (40.1-51.0) % MCV 92.5 H (79.0-92.2) fL MCH 30.5 (25.7-32.2) pg MCHC 32.9 (32.3-36.5) g/dL RDW 14.0 (11.6-14.4) % Plt Count 209 (163-337) x10^3/uL MPV 10.6 (9.4-12.4) fL Gran % 65.6 (34.0-67.9) % Immature Gran % (Auto) 0.4 (0.001-0.429) % Nucleat RBC Rel Count 0.0 (0.00-0.2) % Eos # (Auto) 0.09 (0.04-0.54) x10^3/uL Immature Gran # (Auto) 0.03 (0.001-0.031) x10^3u/L Absolute Lymphs (auto) 1.22 L (1.32-3.57) x10^3/uL Absolute Monos (auto) 0.89 H (0.30-0.82) x10^3/uL Absolute Nucleated RBC 0.00 (0.00-0.012) x10^3u/L Lymphocytes % 18.2 L (21.8-53.1) % Monocytes % 13.3 H (5.3-12.2) % Eosinophils % 1.3 (0.8-7.0) % Basophils % 1.2 (0.2-1.2) % Absolute Granulocytes 4.40 (1.78-5.38) x10^3/uL Basophils # 0.08 (0.01-0.08) x10^3/uL Sodium 136 (135-145) mmol/L Potassium 5.1 (3.5-5.1) mmol/L Chloride 100 (98-107) mmol/L Carbon Dioxide 26 (22-30) mmol/L Anion Gap 15.3 H (5-15) MEQ/L BUN 36 H (9-20) mg/dL Creatinine 2.16 H (0.66-1.25) mg/dL Estimated GFR 31.7 ML/MIN Glucose 194 H (74-106) mg/dL POC Glucometer (74 to 106) mg/dL Lactic Acid (0.4-2.0) Calcium 9.6 (8.4-10.2) mg/dL Magnesium 2.6 H (1.6-2.3) mg/dL Total Bilirubin 0.70 (0.2-1.3) mg/dL AST 48 (17-59) U/L ALT 34 (0-50) U/L Alkaline Phosphatase 83 (38-126) U/L Troponin I < 0.012 (0.000-0.033) ng/mL NT-Pro-B Natriuret Pep 82.1 (<300) pg/mL Serum Total Protein 7.1 (6.3-8.2) g/dL Albumin 4.0 (3.5-5.0) g/dL Influenza Type A Ag (NEGATIVE) Influenza Type B Ag (NEGATIVE) RSV (PCR) (NEGATIVE) SARS-CoV-2 (PCR) (NEGATIVE) 08/02/24 08/02/24 08/02/24 Range/Units 18:36 20:00 22:15 WBC (4.23-9.07) x10^3/uL RBC (4.63-6.08) x10^6/uL Hgb (13.7-17.5) g/dL Hct (40.1-51.0) % MCV (79.0-92.2) fL MCH (25.7-32.2) pg MCHC (32.3-36.5) g/dL RDW (11.6-14.4) % Plt Count (163-337) x10^3/uL MPV (9.4-12.4) fL Gran % (34.0-67.9) % Immature Gran % (Auto) (0.001-0.429) % Nucleat RBC Rel Count (0.00-0.2) % Eos # (Auto) (0.04-0.54) x10^3/uL Immature Gran # (Auto) (0.001-0.031) x10^3u/L Absolute Lymphs (auto) (1.32-3.57) x10^3/uL Absolute Monos (auto) (0.30-0.82) x10^3/uL Absolute Nucleated RBC (0.00-0.012) x10^3u/L Lymphocytes % (21.8-53.1) % Monocytes % (5.3-12.2) % Eosinophils % (0.8-7.0) % Basophils % (0.2-1.2) % Absolute Granulocytes (1.78-5.38) x10^3/uL Basophils # (0.01-0.08) x10^3/uL Sodium (135-145) mmol/L Potassium (3.5-5.1) mmol/L Chloride (98-107) mmol/L Carbon Dioxide (22-30) mmol/L Anion Gap (5-15) MEQ/L BUN (9-20) mg/dL Creatinine (0.66-1.25) mg/dL Estimated GFR ML/MIN Glucose (74-106) mg/dL POC Glucometer (74 to 106) mg/dL Lactic Acid 1.5 (0.4-2.0) Calcium (8.4-10.2) mg/dL Magnesium (1.6-2.3) mg/dL Total Bilirubin (0.2-1.3) mg/dL AST (17-59) U/L ALT (0-50) U/L Alkaline Phosphatase (38-126) U/L Troponin I < 0.012 (0.000-0.033) ng/mL NT-Pro-B Natriuret Pep (<300) pg/mL Serum Total Protein (6.3-8.2) g/dL Albumin (3.5-5.0) g/dL Influenza Type A Ag POSITIVE A (NEGATIVE) Influenza Type B Ag NEGATIVE (NEGATIVE) RSV (PCR) NEGATIVE (NEGATIVE) SARS-CoV-2 (PCR) NEGATIVE (NEGATIVE) 08/02/24 08/03/24 08/03/24 Range/Units 22:35 06:08 06:08 WBC 11.1 H (4.23-9.07) x10^3/uL RBC 4.82 (4.63-6.08) x10^6/uL Hgb 14.4 (13.7-17.5) g/dL Hct 45.0 (40.1-51.0) % MCV 93.4 H (79.0-92.2) fL MCH 29.9 (25.7-32.2) pg MCHC 32.0 L (32.3-36.5) g/dL RDW 14.1 (11.6-14.4) % Plt Count 236 (163-337) x10^3/uL MPV 10.5 (9.4-12.4) fL Gran % (34.0-67.9) % Immature Gran % (Auto) (0.001-0.429) % Nucleat RBC Rel Count (0.00-0.2) % Eos # (Auto) (0.04-0.54) x10^3/uL Immature Gran # (Auto) (0.001-0.031) x10^3u/L Absolute Lymphs (auto) (1.32-3.57) x10^3/uL Absolute Monos (auto) (0.30-0.82) x10^3/uL Absolute Nucleated RBC (0.00-0.012) x10^3u/L Lymphocytes % (21.8-53.1) % Monocytes % (5.3-12.2) % Eosinophils % (0.8-7.0) % Basophils % (0.2-1.2) % Absolute Granulocytes (1.78-5.38) x10^3/uL Basophils # (0.01-0.08) x10^3/uL Sodium 134 L (135-145) mmol/L Potassium 6.4 H* D (3.5-5.1) mmol/L Chloride 99 (98-107) mmol/L Carbon Dioxide 18 L (22-30) mmol/L Anion Gap 23.3 H (5-15) MEQ/L BUN 47 H (9-20) mg/dL Creatinine 2.53 H (0.66-1.25) mg/dL Estimated GFR 26.3 ML/MIN Glucose 333 H (74-106) mg/dL POC Glucometer 290 H (74 to 106) mg/dL Lactic Acid (0.4-2.0) Calcium 9.1 (8.4-10.2) mg/dL Magnesium 2.5 H (1.6-2.3) mg/dL Total Bilirubin (0.2-1.3) mg/dL AST (17-59) U/L ALT (0-50) U/L Alkaline Phosphatase (38-126) U/L Troponin I (0.000-0.033) ng/mL NT-Pro-B Natriuret Pep (<300) pg/mL Serum Total Protein (6.3-8.2) g/dL Albumin (3.5-5.0) g/dL Influenza Type A Ag (NEGATIVE) Influenza Type B Ag (NEGATIVE) RSV (PCR) (NEGATIVE) SARS-CoV-2 (PCR) (NEGATIVE) 08/03/24 08/03/24 08/03/24 Range/Units 06:39 09:59 11:14 WBC (4.23-9.07) x10^3/uL RBC (4.63-6.08) x10^6/uL Hgb (13.7-17.5) g/dL Hct (40.1-51.0) % MCV (79.0-92.2) fL MCH (25.7-32.2) pg MCHC (32.3-36.5) g/dL RDW (11.6-14.4) % Plt Count (163-337) x10^3/uL MPV (9.4-12.4) fL Gran % (34.0-67.9) % Immature Gran % (Auto) (0.001-0.429) % Nucleat RBC Rel Count (0.00-0.2) % Eos # (Auto) (0.04-0.54) x10^3/uL Immature Gran # (Auto) (0.001-0.031) x10^3u/L Absolute Lymphs (auto) (1.32-3.57) x10^3/uL Absolute Monos (auto) (0.30-0.82) x10^3/uL Absolute Nucleated RBC (0.00-0.012) x10^3u/L Lymphocytes % (21.8-53.1) % Monocytes % (5.3-12.2) % Eosinophils % (0.8-7.0) % Basophils % (0.2-1.2) % Absolute Granulocytes (1.78-5.38) x10^3/uL Basophils # (0.01-0.08) x10^3/uL Sodium 134 L (135-145) mmol/L Potassium 5.7 H (3.5-5.1) mmol/L Chloride 99 (98-107) mmol/L Carbon Dioxide 20 L (22-30) mmol/L Anion Gap 20.7 H (5-15) MEQ/L BUN 52 H (9-20) mg/dL Creatinine 2.71 H (0.66-1.25) mg/dL Estimated GFR 24.2 ML/MIN Glucose 353 H (74-106) mg/dL POC Glucometer 334 H 332 H (74 to 106) mg/dL Lactic Acid (0.4-2.0) Calcium 9.1 (8.4-10.2) mg/dL Magnesium (1.6-2.3) mg/dL Total Bilirubin (0.2-1.3) mg/dL AST (17-59) U/L ALT (0-50) U/L Alkaline Phosphatase (38-126) U/L Troponin I (0.000-0.033) ng/mL NT-Pro-B Natriuret Pep (<300) pg/mL Serum Total Protein (6.3-8.2) g/dL Albumin (3.5-5.0) g/dL Influenza Type A Ag (NEGATIVE) Influenza Type B Ag (NEGATIVE) RSV (PCR) (NEGATIVE) SARS-CoV-2 (PCR) (NEGATIVE) Radiology Exams: Radiology Procedures Category Date Time Status CERVICAL SPINE WO CONTRAST [CT] Stat Exams 08/02/24 18:36 Completed CHEST WITHOUT CONTRAST [CT] Stat Exams 08/02/24 18:36 Completed HAND (MINIMUM 3 VIEWS) Stat Exams 08/02/24 18:50 Completed HEAD WITHOUT CONTRAST [CT] Stat Exams 08/02/24 18:36 Completed US ABDOMEN LIMITED [ABDOMINAL-LIMITED] [US] Stat Exams 08/03/24 10:01 Ordered Assessment/Plan (1) DUNIA (acute kidney injury) Current Visit: Yes Status: Acute Assessment & Plan: Renal function worsened despite IV fluids and holding of various medications. Will continue IV fluids and obtain renal US (won't be able to be performed until 08/04/24 but the patient has no renal colic or hematuria). Nephrology consulted. Code(s): N17.9 - ACUTE KIDNEY FAILURE, UNSPECIFIED (2) CAD (coronary artery disease) Current Visit: No Status: Chronic Qualifiers: Coronary Disease-Associated Artery/Lesion type: bypass graft [place] vs. transplanted heart: [place] heart Associated angina: without angina Qualified Code(s): I25.810 - Atherosclerosis of coronary artery bypass graft(s) without angina pectoris Assessment & Plan: Continue IV fluids at a low rate due to CHF and risk of volume overload. Monitor BP. Code(s): I25.10 - ATHSCL HEART DISEASE OF [place] CORONARY ARTERY W/O ANG PCTRS (3) Diabetes mellitus Current Visit: No Status: Chronic Qualifiers: Diabetes mellitus type: type 2 Diabetes mellitus fdc insulin use: with fdc use Diabetes mellitus complication status: with kidney complications Diabetes mellitus complication detail: with chronic kidney disease Chronic kidney disease stage: stage 3 (moderate) Assessment & Plan: Follow sugars on ISS Code(s): E11.9 - TYPE 2 DIABETES MELLITUS WITHOUT COMPLICATIONS (4) Influenza A Current Visit: Yes Status: Acute Assessment & Plan: Isolation. Code(s): J10.1 - FLU DUE TO OTH IDENT INFLUENZA VIRUS W OTH RESP MANIFEST Telemedicine Encounter - Telemedicine Encounter Telemedicine Encounter: "The entirety of this encounter was performed via Telemedicine" This visit was performed using real-time audio and video connection between my location and thepatients locationwith the assistance of a surrogateat the patients location. Written or verbal consent was obtained from the patient/guardian to perform this visit usingst[facility] technology. Any patient questions regarding the telemedicine interaction were answered.
[2024-08-03] MEDS: MAALOX ES 30 ML UNIT DOSE PO PRN (14:22)
[2024-08-03] MEDS ORDERED: Advair Hfa 115/21 Common canister IH SCH (19:00)
[2024-08-03] MEDS: ZOCOR 20MG PO SCH (21:44)
[2024-08-03] MEDS ORDERED: NON-FORMULARY ITEM (Rosuvastatin Calcium [Rosuvastatin Calcium] 40 MG Tablet) PO SCH (22:00)
[2024-08-04 04:30] LABS: Absolute Neutrophil Ct (ANC) 7.22 x10^3/uL (1.78-5.38); BASOPHIL % 0.5 % (0.2-1.2); Basophil (Absolute #) 0.05 x10^3/uL (0.01-0.08); Eosinophil % 0.3 % (0.8-7.0); Eosinophil (Absolute #) 0.03 x10^3/uL (0.04-0.54); Hematocrit 42.2 % (40.1-51.0); Hemoglobin 13.9 g/dL (13.7-17.5); IMMATURE GRAN # 0.03 x10^3u/L (0.001-0.031); IMMATURE GRAN % 0.3 % (0.001-0.429); Lymphocyte (Absolute #) 1.43 x10^3/uL (1.32-3.57); Lymphocytes % 14.9 % (21.8-53.1); Mean Cell Volume 92.1 fL (79.0-92.2); Mean Corpuscular Hemoglobin 30.3 pg (25.7-32.2); Mean Corpuscular Hgb Concent. 32.9 g/dL (32.3-36.5); Mean Platelet Volume 10.4 fL (9.4-12.4); Monocyte (Absolute #) 0.85 x10^3/uL (0.30-0.82); Monocytes % 8.8 % (5.3-12.2); Neutrophil % 75.2 % (34.0-67.9); Platelet Count 201 x10^3/uL (163-337); Red Blood Count 4.58 x10^6/uL (4.63-6.08); Red Cell Distribution Width 14.1 % (11.6-14.4); White Blood Count 9.6 x10^3/uL (4.23-9.07)
[2024-08-04 04:45] LABS: ALBUMIN 4.2 g/dL (3.5-5.0); BILIRUBIN,TOTAL 0.7 mg/dL (0.2-1.3); Calcium 8.6 mg/dL (8.4-10.2); Creatinine 1 2.17 mg/dL (0.66-1.25); EST GLOMERULAR FILTRATION RATE 31.6 ML/MIN; MAGNESIUM 2.7 mg/dL (1.6-2.3); Potassium 3.9 mmol/L (3.5-5.1); Total Protein 7.6 g/dL (6.3-8.2)
--- NOTE | 2024-08-04 09:51 | PCM.NOTE ---
Date and Time: 08/04/24 0938 Subjective Assessment: 08/04/23 Pt sitting in chair. He is rather irritable as he has been made NPO for kidney US and wants to drink fluids. Anion gap 16 and improving- will continue IVF. DUNIA improving. Nephro consult pending. Asked if he has seen nephrology in the past and he states he has seen Dr. 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 Pt does admit to difficulty with urination and Flomax started today. He remains on 3LNC and baseline is room air. He has continued SOB and wheezing. Antibiotics, steroids, and duonebs started today for COPD exacerbation. Continue home inhalers. Tamiflu avoided for Flu A d/t DUNIA. + wound to bottom of let foot by great toe- podiatry consulted. Pt denies CP, Abd pain, N/V/D. - Review of Systems Constitutional: Weakness, No Fever, No Chills Eyes: No Symptoms Ears, Nose, & Throat: No Symptoms Respiratory: Short Of Breath, Wheezing, No Cough Cardiac: No Chest Pain, No Edema, No Syncope Abdominal/Gastrointestinal: No Abdominal Pain, No Nausea, No Vomiting, No Diarrhea Genitourinary Symptoms: No Dysuria Musculoskeletal: No Back Pain, No Neck Pain Skin: Skin Lesions (Bottom of left foot), No Rash Neurological: Irritability, No Dizziness, No Focal Weakness, No Sensory Changes Psychological: No Symptoms Endocrine: No Symptoms Hematologic/Lymphatic: No Symptoms Immunological/Allergic: No Symptoms Objective Exam General Appearance: no apparent distress, alert, obese Neurologic Exam: alert, oriented x 3, cooperative, normal mood/affect, nml cerebellar function, sensation nml, No motor deficits Skin Exam: normal color, warm, dry, other (Bottom of left foot wound- see pics in chart for size) Wound Assessment: Skin/Wound Assessment Wound/Incision Assessment Start: 08/02/24 23:40 Text: Status: Active Freq: Q6H Protocol: Document 08/04/24 09:00 OB (Rec: 08/04/24 09:11 OB [id number]) Wound/Incision Assessment Right Hand Wound Assessment Shift Assessment Wound Type Skin Tear Wound Stage Non Pressure Wound Dressing Status Changed Drainage Amount Minimal Drainage Description Sanguineous Drainage Odor None/Absent Comment TELFA PAD, STRETCH GAUZE AND VASELINE USED FOR DRESSING CHANGE Left Foot Wound Assessment Shift Assessment Wound Type DIABETIC DECUBITUS Wound Stage Non Pressure Wound Drainage Amount None Drainage Odor None/Absent Comment OPEN TO AIR, NO DRAINGE NOTED Wound Photo Photo Taken No Date: 08/02/24 Time: 23:20 Eye Exam: PERRL, EOMI, eyes nml inspection Ears, Nose, Throat Exam: normal ENT inspection, pharynx normal, moist mucous membranes Neck Exam: normal inspection, non-tender, supple, full range of motion Respiratory Exam: rhonchi, wheezing, No respiratory distress Cardiovascular Exam: regular rate/rhythm, normal heart sounds Gastrointestinal/Abdomen Exam: soft, No tenderness, No mass Extremity Exam: normal inspection, normal range of motion Back Exam: normal inspection, normal range of motion, No CVA tenderness, No vertebral tenderness Male Genitalia Exam: deferred Rectal Exam: deferred Objective Data Vital Signs: Vital Signs - 24 hr Temp Pulse Resp BP Pulse Ox 08/04/24 07:46 97.5 F 83 22 119/61 93 L 08/04/24 07:01 85 24 91 L 08/04/24 03:41 97.3 F 80 30 H 120/57 91 L 08/03/24 23:46 97.7 F 76 30 H 98/53 89 L 08/03/24 20:00 97.7 F 84 30 H 91/54 86 L 08/03/24 18:51 86 20 91 L 08/03/24 16:00 97.9 F 86 16 112/58 90 L 08/03/24 12:00 98.9 F 89 19 145/65 92 L Pain Assessment - Last Documented Pain Intensity 5 Pain Scale Used 0-10 Pain Scale Intake and Output: Intake & Output 08/01/24 08/02/24 08/03/24 08/04/24 11:59 11:59 11:59 11:59 Intake Total 240 2692 Output Total 400 200 Balance -160 2492 Weight 122.1 kg 122.952 kg Lab Results: Lab Results-Last 24 Hours 08/03/24 08/03/24 08/03/24 Range/Units 06:08 09:59 11:14 WBC (4.23-9.07) x10^3/uL RBC (4.63-6.08) x10^6/uL Hgb (13.7-17.5) g/dL Hct (40.1-51.0) % MCV (79.0-92.2) fL MCH (25.7-32.2) pg MCHC (32.3-36.5) g/dL RDW (11.6-14.4) % Plt Count (163-337) x10^3/uL MPV (9.4-12.4) fL Gran % (34.0-67.9) % Immature Gran % (Auto) (0.001-0.429) % Nucleat RBC Rel Count (0.00-0.2) % Eos # (Auto) (0.04-0.54) x10^3/uL Immature Gran # (Auto) (0.001-0.031) x10^3u/L Absolute Lymphs (auto) (1.32-3.57) x10^3/uL Absolute Monos (auto) (0.30-0.82) x10^3/uL Absolute Nucleated RBC (0.00-0.012) x10^3u/L Lymphocytes % (21.8-53.1) % Monocytes % (5.3-12.2) % Eosinophils % (0.8-7.0) % Basophils % (0.2-1.2) % Absolute Granulocytes (1.78-5.38) x10^3/uL Basophils # (0.01-0.08) x10^3/uL Sodium 134 L (135-145) mmol/L Potassium 5.7 H (3.5-5.1) mmol/L Chloride 99 (98-107) mmol/L Carbon Dioxide 20 L (22-30) mmol/L Anion Gap 20.7 H (5-15) MEQ/L BUN 52 H (9-20) mg/dL Creatinine 2.71 H (0.66-1.25) mg/dL Estimated GFR 24.2 ML/MIN Glucose 353 H (74-106) mg/dL POC Glucometer 332 H (74 to 106) mg/dL Hemoglobin A1c 7.59 H (4.5-6.0) % Calcium 9.1 (8.4-10.2) mg/dL Magnesium (1.6-2.3) mg/dL Total Bilirubin (0.2-1.3) mg/dL AST (17-59) U/L ALT (0-50) U/L Alkaline Phosphatase (38-126) U/L Serum Total Protein (6.3-8.2) g/dL Albumin (3.5-5.0) g/dL 08/03/24 08/03/24 08/04/24 Range/Units 16:00 21:41 04:17 WBC 9.6 H (4.23-9.07) x10^3/uL RBC 4.58 L (4.63-6.08) x10^6/uL Hgb 13.9 (13.7-17.5) g/dL Hct 42.2 (40.1-51.0) % MCV 92.1 (79.0-92.2) fL MCH 30.3 (25.7-32.2) pg MCHC 32.9 (32.3-36.5) g/dL RDW 14.1 (11.6-14.4) % Plt Count 201 (163-337) x10^3/uL MPV 10.4 (9.4-12.4) fL Gran % 75.2 H (34.0-67.9) % Immature Gran % (Auto) 0.3 (0.001-0.429) % Nucleat RBC Rel Count 0.0 (0.00-0.2) % Eos # (Auto) 0.03 L (0.04-0.54) x10^3/uL Immature Gran # (Auto) 0.03 (0.001-0.031) x10^3u/L Absolute Lymphs (auto) 1.43 (1.32-3.57) x10^3/uL Absolute Monos (auto) 0.85 H (0.30-0.82) x10^3/uL Absolute Nucleated RBC 0.00 (0.00-0.012) x10^3u/L Lymphocytes % 14.9 L (21.8-53.1) % Monocytes % 8.8 (5.3-12.2) % Eosinophils % 0.3 L (0.8-7.0) % Basophils % 0.5 (0.2-1.2) % Absolute Granulocytes 7.22 H (1.78-5.38) x10^3/uL Basophils # 0.05 (0.01-0.08) x10^3/uL Sodium (135-145) mmol/L Potassium (3.5-5.1) mmol/L Chloride (98-107) mmol/L Carbon Dioxide (22-30) mmol/L Anion Gap (5-15) MEQ/L BUN (9-20) mg/dL Creatinine (0.66-1.25) mg/dL Estimated GFR ML/MIN Glucose (74-106) mg/dL POC Glucometer 339 H 148 H (74 to 106) mg/dL Hemoglobin A1c (4.5-6.0) % Calcium (8.4-10.2) mg/dL Magnesium (1.6-2.3) mg/dL Total Bilirubin (0.2-1.3) mg/dL AST (17-59) U/L ALT (0-50) U/L Alkaline Phosphatase (38-126) U/L Serum Total Protein (6.3-8.2) g/dL Albumin (3.5-5.0) g/dL 08/04/24 08/04/24 Range/Units 04:17 07:18 WBC (4.23-9.07) x10^3/uL RBC (4.63-6.08) x10^6/uL Hgb (13.7-17.5) g/dL Hct (40.1-51.0) % MCV (79.0-92.2) fL MCH (25.7-32.2) pg MCHC (32.3-36.5) g/dL RDW (11.6-14.4) % Plt Count (163-337) x10^3/uL MPV (9.4-12.4) fL Gran % (34.0-67.9) % Immature Gran % (Auto) (0.001-0.429) % Nucleat RBC Rel Count (0.00-0.2) % Eos # (Auto) (0.04-0.54) x10^3/uL Immature Gran # (Auto) (0.001-0.031) x10^3u/L Absolute Lymphs (auto) (1.32-3.57) x10^3/uL Absolute Monos (auto) (0.30-0.82) x10^3/uL Absolute Nucleated RBC (0.00-0.012) x10^3u/L Lymphocytes % (21.8-53.1) % Monocytes % (5.3-12.2) % Eosinophils % (0.8-7.0) % Basophils % (0.2-1.2) % Absolute Granulocytes (1.78-5.38) x10^3/uL Basophils # (0.01-0.08) x10^3/uL Sodium 136 (135-145) mmol/L Potassium 3.9 D (3.5-5.1) mmol/L Chloride 97 L (98-107) mmol/L Carbon Dioxide 26 (22-30) mmol/L Anion Gap 16.0 H (5-15) MEQ/L BUN 59 H (9-20) mg/dL Creatinine 2.17 H (0.66-1.25) mg/dL Estimated GFR 31.6 ML/MIN Glucose 135 H (74-106) mg/dL POC Glucometer 157 H (74 to 106) mg/dL Hemoglobin A1c (4.5-6.0) % Calcium 8.6 (8.4-10.2) mg/dL Magnesium 2.7 H (1.6-2.3) mg/dL Total Bilirubin 0.70 (0.2-1.3) mg/dL AST 39 (17-59) U/L ALT 32 (0-50) U/L Alkaline Phosphatase 73 (38-126) U/L Serum Total Protein 7.6 (6.3-8.2) g/dL Albumin 4.2 (3.5-5.0) g/dL Radiology Exams: Radiology Procedures Category Date Time Status CERVICAL SPINE WO CONTRAST [CT] Stat Exams 08/02/24 18:36 Completed CHEST WITHOUT CONTRAST [CT] Stat Exams 08/02/24 18:36 Completed HAND (MINIMUM 3 VIEWS) Stat Exams 08/02/24 18:50 Completed HEAD WITHOUT CONTRAST [CT] Stat Exams 08/02/24 18:36 Completed KIDNEY [US] Stat Exams 08/04/24 10:01 Ordered Assessment/Plan (1) COPD exacerbation Current Visit: No Status: Acute Assessment & Plan: - Ceftriaxone, Duonebs, steroids, home inhalers - 3LNC 91% baseline room air. - Tele - CBC reviewed - Good candidate for Pulm rehab OP - PT eval- uses scooter at home and walker - Chest CT Impression: Again chronic findings including pulmonary emphysema, fibrosis/scarring, arteriosclerotic disease, chronic bony findings, and old granulomatous disease. No new/acute findings on this noncontrast exam. Code(s): J44.1 - CHRONIC OBSTRUCTIVE PULMONARY DISEASE W (ACUTE) EXACERBATION (2) Influenza A Current Visit: Yes Status: Acute Assessment & Plan: - Tamiflu held d/t [place] - Isolation Code(s): J10.1 - FLU DUE TO OTH IDENT INFLUENZA VIRUS W OTH RESP MANIFEST (3) Acute on chronic renal failure Current Visit: Yes Status: Acute Assessment & Plan: - Creat 2.17- baseline 1.32- improving - IVF - Tele - CMP reviewed - US kidneys: Impression: Abnormal distended urinary bladder. Rule out out obstruction versus neurogenic bladder. Remaining renal sonogram is negative. - Pt reports he used to see Dr. Grimes with urology in the past- has never seen a bilingual speech therapist before. - He is not taking any meds for BPH. - post void bladder sacn - Flomax started Code(s): N17.9 - ACUTE KIDNEY FAILURE, UNSPECIFIED; N18.9 - CHRONIC KIDNEY DISEASE, UNSPECIFIED (4) Wound of left foot Current Visit: Yes Status: Acute Assessment & Plan: - podiatry consult - XR Left foot: 3 portable nonweightbearing views left foot again demonstrates osteopenia, remote osteotomies distal shaft 2nd/3rd/4th metatarsals, moderate 1st MTP bunion deformity, 2nd toe amputation, tiny heel spur, and diffuse scattered vascular calcifications. No new/acute bony, articular, or soft tissue abnormalities. Code(s): S91.302A - UNSPECIFIED OPEN WOUND, LEFT FOOT, INITIAL ENCOUNTER (5) Weakness Current Visit: No Status: Acute Assessment & Plan: - PT eval and treat Code(s): R53.1 - WEAKNESS (6) CAD (coronary artery disease) Current Visit: No Status: Chronic Qualifiers: Coronary Disease-Associated Artery/Lesion type: bypass graft [place] vs. transplanted heart: [place] heart Associated angina: without angina Qualified Code(s): I25.810 - Atherosclerosis of coronary artery bypass graft(s) without angina pectoris Assessment & Plan: - Continue IV fluids at a low rate due to CHF and risk of volume overload. - Monitor BP. Code(s): I25.10 - ATHSCL HEART DISEASE OF [place] CORONARY ARTERY W/O ANG PCTRS (7) Obesity (BMI 30-39.9) Current Visit: Yes Status: Chronic Assessment & Plan: - advised ADA diet and exercise control Code(s): E66.9 - OBESITY, UNSPECIFIED (8) Diabetes mellitus Current Visit: No Status: Chronic Qualifiers: Diabetes mellitus type: type 2 Diabetes mellitus intermediate frame tender insulin use: with intermediate frame tender use Diabetes mellitus complication status: with kidney complications Diabetes mellitus complication detail: with chronic kidney disease Chronic kidney disease stage: stage 3 (moderate) Assessment & Plan: - Accuchecks ac/hs - Humalog s/s and with meals - A1C 7.59- controlled - Consistent carb diet VTE: Heparin PPI: Protonix Next of KIN: Spouse- Patrica Shelton [phone] D/C plan: 1-2 days Code status: SCO/DNR Code(s): E11.9 - TYPE 2 DIABETES MELLITUS WITHOUT COMPLICATIONS
[2024-08-04] MEDS: DUONEB 0.5-3 MG/3 ml Neb IH SCH (10:02)
--- NOTE | 2024-08-04 11:03 | XRAY ---
Indication: Wound. Comparison: July 28, 2024 3 portable nonweightbearing views left foot again demonstrates osteopenia, remote osteotomies distal shaft 2nd/3rd/4th metatarsals, moderate 1st MTP bunion deformity, 2nd toe amputation, tiny heel spur, and diffuse scattered vascular calcifications. No new/acute bony, articular, or soft tissue abnormalities.
[2024-08-04] MEDS: solu-MEDROL 40 MG, Sterile H2O 10 ml 1 ML IV SCH (11:08)
[2024-08-04] MEDS: ROCEPHIN 1 GM / 100 ML NaCl 1 GM/100 ML IVPB IV SCH (11:09)
--- NOTE | 2024-08-04 11:27 | XRAY ---
Indication: Acute kidney injury. Hydronephrosis. Two-dimensional renal sonogram performed. Comparison: None Both kidneys are normal in reniform shape with normal color perfusion. Right kidney measures 10.6 x 6.1 x 4.9 cm and left measures 12.5 x 6.0 x 5.0 cm. No focal solid /cystic renal mass or hydronephrosis. Corticomedullary differentiation preserved. Urinary bladder is abnormally distended up to 1421 cc and grossly unremarkable. Ureteral jets not seen within the allotted exam time. Impression: Abnormal distended urinary bladder. Rule out out obstruction versus neurogenic bladder. Remaining renal sonogram is negative.
[2024-08-04] MEDS: Protonix 20MG Tablet PO SCH (13:13)
[2024-08-04] MEDS: Flomax 0.4 MG PO SCH (13:13)
--- NOTE | 2024-08-04 15:13 | PCM.CONS ---
Podiatry HPI - Consult Date of Consultation Date: 08/04/24 Reason for Consult: DFU left foot Consulting Provider: LISA BELL DPM - [facility] History of Present Illness: Pt sitting in chair. He is rather irritable as he has been made NPO for kidney US and wants to drink fluids. Anion gap 16 and improving- will continue IVF. DUNIA improving. Nephro consult pending. Asked if he has seen nephrology in the past and he states he has seen Dr. 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 Pt does admit to difficulty with urination and Flomax started today. He remains on 3LNC and baseline is room air. He has continued SOB and wheezing. Antibiotics, steroids, and duonebs started today for COPD exacerbation. Continue home inhalers. Tamiflu avoided for Flu A d/t DUNIA. + wound to bottom of let foot by great toe- podiatry consulted. Pt denies CP, Abd pain, N/V/D. Medications & Allergies Home Medications: Home Medication List Aspirin 81 gm Chew [Baby Aspirin 81 mg Chew] 81 mg PO DAILY 05/14/16 [History Confirmed 08/02/24] Benazepril HCl [Lotensin] 20 mg PO DAILY 05/14/16 [History Confirmed 08/02/24] Metoprolol Tartrate 25 mg [Lopressor 25MG Tab] 1 tab PO BID 05/14/16 [History Confirmed 08/02/24] Gabapentin 300 mg PO BID 01/24/18 [History Confirmed 08/02/24] Metformin HCl 800 mg PO BID 01/24/18 [History Confirmed 08/02/24] Furosemide 40 mg [Lasix 40 MG] 40 mg PO BID 11/25/21 [History Confirmed 08/02/24] Rosuvastatin Calcium 40 mg PO HS 11/25/21 [History Confirmed 08/02/24] glyBURIDE [Glyburide] 5 mg PO DAILY 03/24/23 [History Confirmed 08/02/24] Budesonide/Glycopyr/Formoterol [Breztri Aerosphere Inhaler] 2 puffs IH BID 09/17/23 [History Confirmed 08/02/24] Insulin Aspart [NovoLOG Insulin] 25 units SQ BID 09/17/23 [History Confirmed 08/02/24] Insulin Glargine,Hum.rec.anlog [Basaglar Kwikpen U-100] 70 units SQ DAILY 09/17/23 [History Confirmed 08/02/24] Loratadine 10 mg [Claritin 10 mg] 10 mg PO DAILY PRN 09/17/23 [History Confirmed 08/02/24] Nitroglycerin 0.4 mg Tablet [Nitrostat 0.4 MG Tablet] 1 tab PO UD PRN 09/17/23 [History Confirmed 08/02/24] Albuterol 2.5 mg/3 ml Neb [Proventil 2.5 mg/3 ml Neb] 2.5 mg IH Q4H PRN 08/02/24 [History Confirmed 08/02/24] Empagliflozin [Jardiance] 25 mg PO DAILY 08/02/24 [History Confirmed 08/02/24] Potassium Chloride 8 meq PO BID 08/02/24 [History Confirmed 08/02/24] Allergies/Adverse Reactions: Allergies Allergy/AdvReac Type Severity Reaction Status Date / Time sacubitril [From Entresto] AdvReac Intermediate Verified 08/02/24 22:43 valsartan [From Entresto] AdvReac Intermediate Verified 08/02/24 22:43 - Past Medical History Past Medical History: Yes Neurological History: No Pertinent History ENT History: Cataracts Cardiac History: Coronary Artery Disease, High Cholesterol, Hypertension, Myocardial Infarction (HI), Peripheral Vascular Disease, Other Respiratory History: COPD, Pneumonia Endocrine Medical History: Diabetes Type II Musculoskelatal History: No Pertinent History GI Medical History: Polyps History: Other Pyscho-Social History: No Pertinent History Male Reproductive Disorders: No Pertinent History Comment: kidney stone - Past Surgical History Past Surgical History: Yes Neuro Surgical History: No Pertinent History Cardiac History: CABG, Cardiac Catheterization Respiratory Surgery: No Pertinent History GI Surgical History: No Pertinent History Genitourinary Surgical Hx: Other Musculskeletal Surgical Hx: Amputation, Orthopedic Surgery Male Surgical History: No Pertinent History Other Surgical History: CABG X 6 04/03/16, vascular stent in groin, lithotripsy, left great toe amputaion, and left foot tendon release Significant Family History: no pertinent family hx - Social History Smoking Status: Former smoker How long have you smoked: 1972 Exposure to second hand smoke: No Alcohol: None Drug Use: none - Social Determinants of Health Will the patient participate in the screening: Declined to provide Do you worry about a steady place to live?: No Do you have any problems with any of the following?: No known problems In the past 12 months,have you had to go without utilities?: No Have you or anyone in your house had to go without enough: No Transportation Issues: No Has anyone in your support network made you feel unsafe?: No Does the patient want assistance with any of the above?: No Physical Exam - Narrative Narrative Physical Exam: Podiatry Physical Exam Results - Labs Lab/Micro Results: Lab Results-Last 24 Hours 08/03/24 08/03/24 08/04/24 Range/Units 16:00 21:41 04:17 WBC 9.6 H (4.23-9.07) x10^3/uL RBC 4.58 L (4.63-6.08) x10^6/uL Hgb 13.9 (13.7-17.5) g/dL Hct 42.2 (40.1-51.0) % MCV 92.1 (79.0-92.2) fL MCH 30.3 (25.7-32.2) pg MCHC 32.9 (32.3-36.5) g/dL RDW 14.1 (11.6-14.4) % Plt Count 201 (163-337) x10^3/uL MPV 10.4 (9.4-12.4) fL Gran % 75.2 H (34.0-67.9) % Immature Gran % (Auto) 0.3 (0.001-0.429) % Nucleat RBC Rel Count 0.0 (0.00-0.2) % Eos # (Auto) 0.03 L (0.04-0.54) x10^3/uL Immature Gran # (Auto) 0.03 (0.001-0.031) x10^3u/L Absolute Lymphs (auto) 1.43 (1.32-3.57) x10^3/uL Absolute Monos (auto) 0.85 H (0.30-0.82) x10^3/uL Absolute Nucleated RBC 0.00 (0.00-0.012) x10^3u/L Lymphocytes % 14.9 L (21.8-53.1) % Monocytes % 8.8 (5.3-12.2) % Eosinophils % 0.3 L (0.8-7.0) % Basophils % 0.5 (0.2-1.2) % Absolute Granulocytes 7.22 H (1.78-5.38) x10^3/uL Basophils # 0.05 (0.01-0.08) x10^3/uL Sodium (135-145) mmol/L Potassium (3.5-5.1) mmol/L Chloride (98-107) mmol/L Carbon Dioxide (22-30) mmol/L Anion Gap (5-15) MEQ/L BUN (9-20) mg/dL Creatinine (0.66-1.25) mg/dL Estimated GFR ML/MIN Glucose (74-106) mg/dL POC Glucometer 339 H 148 H (74 to 106) mg/dL Calcium (8.4-10.2) mg/dL Magnesium (1.6-2.3) mg/dL Total Bilirubin (0.2-1.3) mg/dL AST (17-59) U/L ALT (0-50) U/L Alkaline Phosphatase (38-126) U/L Serum Total Protein (6.3-8.2) g/dL Albumin (3.5-5.0) g/dL 08/04/24 08/04/24 08/04/24 Range/Units 04:17 07:18 11:52 WBC (4.23-9.07) x10^3/uL RBC (4.63-6.08) x10^6/uL Hgb (13.7-17.5) g/dL Hct (40.1-51.0) % MCV (79.0-92.2) fL MCH (25.7-32.2) pg MCHC (32.3-36.5) g/dL RDW (11.6-14.4) % Plt Count (163-337) x10^3/uL MPV (9.4-12.4) fL Gran % (34.0-67.9) % Immature Gran % (Auto) (0.001-0.429) % Nucleat RBC Rel Count (0.00-0.2) % Eos # (Auto) (0.04-0.54) x10^3/uL Immature Gran # (Auto) (0.001-0.031) x10^3u/L Absolute Lymphs (auto) (1.32-3.57) x10^3/uL Absolute Monos (auto) (0.30-0.82) x10^3/uL Absolute Nucleated RBC (0.00-0.012) x10^3u/L Lymphocytes % (21.8-53.1) % Monocytes % (5.3-12.2) % Eosinophils % (0.8-7.0) % Basophils % (0.2-1.2) % Absolute Granulocytes (1.78-5.38) x10^3/uL Basophils # (0.01-0.08) x10^3/uL Sodium 136 (135-145) mmol/L Potassium 3.9 D (3.5-5.1) mmol/L Chloride 97 L (98-107) mmol/L Carbon Dioxide 26 (22-30) mmol/L Anion Gap 16.0 H (5-15) MEQ/L BUN 59 H (9-20) mg/dL Creatinine 2.17 H (0.66-1.25) mg/dL Estimated GFR 31.6 ML/MIN Glucose 135 H (74-106) mg/dL POC Glucometer 157 H 133 H (74 to 106) mg/dL Calcium 8.6 (8.4-10.2) mg/dL Magnesium 2.7 H (1.6-2.3) mg/dL Total Bilirubin 0.70 (0.2-1.3) mg/dL AST 39 (17-59) U/L ALT 32 (0-50) U/L Alkaline Phosphatase 73 (38-126) U/L Serum Total Protein 7.6 (6.3-8.2) g/dL Albumin 4.2 (3.5-5.0) g/dL Accuchecks Date 08/03/24 - Radiology Impressions Radiology Exams & Impressions: Radiology Procedures Category Date Time Status CERVICAL SPINE WO CONTRAST [CT] Stat Exams 08/02/24 18:36 Completed CHEST WITHOUT CONTRAST [CT] Stat Exams 12/31/24 18:36 Completed FOOT (MINIMUM 3 VIEWS) Routine Exams 08/04/24 10:00 Completed HAND (MINIMUM 3 VIEWS) Stat Exams 08/02/24 18:50 Completed HEAD WITHOUT CONTRAST [CT] Stat Exams 08/02/24 18:36 Completed KIDNEY [US] Stat Exams 08/04/24 10:01 Completed - Other Procedures and Tests Respiratory Therapy 08/04/24 09:45 RT Miscellaneous Order ROUTINE Assessment/Plan (1) DUNIA (acute kidney injury) Current Visit: Yes Status: Acute Code(s): N17.9 - ACUTE KIDNEY FAILURE, UNSPECIFIED (2) Acute hypoxic respiratory failure Current Visit: Yes Status: Acute Code(s): J96.01 - ACUTE RESPIRATORY FAILURE WITH HYPOXIA (3) Influenza A Current Visit: Yes Status: Acute Code(s): J10.1 - FLU DUE TO OTH IDENT INFLUENZA VIRUS W OTH RESP MANIFEST (4) Cellulitis of toe of left foot Current Visit: No Status: Acute Code(s): L03.032 - CELLULITIS OF LEFT TOE (5) Diabetic foot ulcer Current Visit: No Status: Acute Assessment & Plan: Inital patient examination and evaluation radiographs revised and discussed with patient demonstrating no significant concerns for bone breakdown to the left foot Wound debrided revealing a rather granular wound to the plantar aspect of the left 1st mpj measuring .8 x 0.6 with minimal depth culture obtained Wound dressed with Iodine bandaid and offloaded with horseshoe pad. will follow with you Code(s): E11.621 - TYPE 2 DIABETES MELLITUS WITH FOOT ULCER; L97.509 - NON- PRESSURE CHRONIC ULCER OTH PRT UNSP FOOT W UNSP SEVERITY
[2024-08-04 15:47] VITALS: O2SAT 90
[2024-08-04 19:03] LABS: CREATININE,URINE RANDOM 80.4 MG/DL; Creatinine, Urine Random 80.4 mg/dl; Malb/Crea Ratio 86.6 (<30)
[2024-08-04 19:51] VITALS: TEMP 97.8
[2024-08-04 23:55] VITALS: BP 115/53; PULSE 83; RESP 22
--- NOTE | 2024-08-05 12:21 | PCM.DS ---
Discharge Summary Date of Admission: 08/02/24 21:54 Date of Discharge: 08/05/24 Admitting Physician: GAMAL GARCIA MD Consults: Consults on Case 08/03/24 10:02 Consult Nephrology ROUTINE 08/04/24 08:30 Consult Podiatry ROUTINE Primary Care Provider: JAROD LEWIS Allergies Allergies sacubitril [From Entresto] Adverse Reaction (Intermediate, Verified 08/02/24 22:43) valsartan [From Entresto] Adverse Reaction (Intermediate, Verified 08/02/24 22:43) Hospital Summary - Hospital Course Hospital Course: 08/04/23 Pt sitting in chair. He is rather irritable as he has been made NPO for kidney US and wants to drink fluids. Anion gap 16 and improving- will continue IVF. DUNIA improving. Nephro consult pending. Asked if he has seen nephrology in the past and he states he has seen Dr. 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 Pt does admit to difficulty with urination and Flomax started today. He remains on 3LNC and baseline is room air. He has continued SOB and wheezing. Antibiotics, steroids, and duonebs started today for COPD exacerbation. Continue home inhalers. Tamiflu avoided for Flu A d/t DUNIA. + wound to bottom of let foot by great toe- podiatry consulted. Pt denies CP, Abd pain, N/V/D. 08/05/23 Per nursing staff pt left AMA after midnight last night. Unsure of reason no further information provided. - Vitals & Intake/Output Vital Signs: Vital Signs Temperature 97.8 F 08/04/24 23:55 Pulse Rate 83 08/04/24 23:55 Respiratory Rate 22 08/04/24 23:55 Blood Pressure 115/53 08/04/24 23:55 O2 Sat by Pulse Oximetry 90 L 08/04/24 23:55 Intake & Output: Intake & Output 08/03/24 08/04/24 08/05/24 08/06/24 11:59 11:59 11:59 11:59 Intake Total 240 2932 600 Output Total 390 977 4923 Balance -160 2732 -1800 Weight 122.1 kg 122.952 kg - Lab Result Diagrams: 08/04/24 04:17 08/04/24 04:17 Lab Results-Last 24 Hrs: Lab Results-Last 24 Hours 08/04/24 08/04/24 08/04/24 Range/Units 15:56 18:45 22:52 POC Glucometer 208 H 224 H (74 to 106) mg/dL Ur Random Creatinine 80.4 mg/dl Ur Random Microalbumin 69.7 H (6.0-16.7) mg/L Microalb/Creat Ratio 86.600 (<30) Micro Results-Entire Visit: Accuchecks Date 08/04/24 Time 22:00 - Radiology Exams Ordered Rad Exams-Entire Visit: Radiology Procedures Category Date Time Status FOOT (MINIMUM 3 VIEWS) Routine Exams 08/04/24 10:00 Completed KIDNEY [US] Stat Exams 08/04/24 10:01 Completed - Procedures and Test Procedures and Tests throughout Hospitalization: Therapy Orders & Screens 08/02/24 20:13 Respiratory Therapy Assessment DAILY Comment: 08/02/24 22:25 Oxygen Nasal Cannula 2 lpm Comment: Diagnosis: influenza A Respiratory Therapy Consult ONCE Comment: Reason For Exam: Diagnosis: influenza A 08/02/24 23:40 OT Screen per Nursing Assess ONCE Comment: Protocol Order Physician Instructions: Greater than 3 points order OT Admission Screening Reason For Exam: Triggered on Admission Diagnosis: influenza A, acute hypoxic respiratory failure Open Wound/Cellutlitis/Pressure Ulcers: Yes Acute Fx/ORIF/Change in wt bearing status: No Severe MUSCULOSKELETAL pain: No ADL Dysfunction: No Acute CVA w/Hemiparesis/Hemiplegia: No Decreased Functional Mobility/Strength: No Sprain/Strain: No Acute Post-op Mobility Dysfunction: No Total Points: 5 PT Screen per Nursing Assess ONCE Comment: Protocol Order Physician Instructions: Greater than 3 points order PT Admission Screenin Reason For Exam: Triggered on Admission Diagnosis: influenza A, acute hypoxic respiratory failure Open Wound/Cellutlitis/Pressure Ulcers: Yes Acute Fx/ORIF/Change in wt bearing status: No Severe MUSCULOSKELETAL pain: No ADL Dysfunction: No Acute CVA w/Hemiparesis/Hemiplegia: No Decreased Functional Mobility/Strength: No Sprain/Strain: No Acute Post-op Mobility Dysfunction: No Total Points: 5 08/03/24 07:00 Respiratory MDI Q12H Comment: Diagnosis: fall 08/04/24 09:45 PT Eval & Treat (MD Order) ONCE Reason for Eval:: Weakness with SOB Diagnosis: fall RT Miscellaneous Order ROUTINE Comment: Physician Instructions: Reason For Exam: eval and treat, wean O2, Keep O2> 92% Diagnosis: fall Discharge Exam General Appearance: no apparent distress, alert Neurologic Exam: alert, oriented x 3, cooperative, normal mood/affect, nml cerebellar function, sensation nml, No motor deficits Eye Exam: PERRL, EOMI, eyes nml inspection Ears, Nose, Throat Exam: normal ENT inspection, pharynx normal, moist mucous membranes Neck Exam: normal inspection, non-tender, supple, full range of motion Respiratory Exam: normal breath sounds, lungs clear, No respiratory distress Cardiovascular Exam: regular rate/rhythm, normal heart sounds Gastrointestinal/Abdomen Exam: soft, No tenderness, No mass Male Genitalia Exam: deferred Rectal Exam: deferred Back Exam: normal inspection, normal range of motion, No CVA tenderness, No vertebral tenderness Extremity Exam: normal inspection, normal range of motion Skin Exam: normal color, warm, dry Final Diagnosis/Problem List - Final Discharge Diagnosis/Problem (1) COPD exacerbation Status: Acute Code(s): J44.1 - CHRONIC OBSTRUCTIVE PULMONARY DISEASE W (ACUTE) EXACERBATION (2) Influenza A Status: Acute Code(s): J10.1 - FLU DUE TO OTH IDENT INFLUENZA VIRUS W OTH RESP MANIFEST (3) Acute on chronic renal failure Status: Acute Code(s): N17.9 - ACUTE KIDNEY FAILURE, UNSPECIFIED; N18.9 - CHRONIC KIDNEY DISEASE, UNSPECIFIED (4) Wound of left foot Status: Acute Code(s): S91.302A - UNSPECIFIED OPEN WOUND, LEFT FOOT, INITIAL ENCOUNTER (5) Weakness Status: Acute Code(s): R53.1 - WEAKNESS (6) CAD (coronary artery disease) Status: Chronic Code(s): I25.10 - ATHSCL HEART DISEASE OF [place] CORONARY ARTERY W/O ANG PCTRS (7) Obesity (BMI 30-39.9) Status: Chronic Code(s): E66.9 - OBESITY, UNSPECIFIED (8) Diabetes mellitus Status: Chronic Assessment & Plan: (1) COPD exacerbation Current Visit: No Status: Acute Assessment & Plan: - Ceftriaxone, Duonebs, steroids, home inhalers - 3LNC 91% baseline room air. - Tele - CBC reviewed - Good candidate for Pulm rehab OP - PT eval- uses scooter at home and walker - Chest CT Impression: Again chronic findings including pulmonary emphysema, fibrosis/scarring, arteriosclerotic disease, chronic bony findings, and old granulomatous disease. No new/acute findings on this noncontrast exam. Code(s): J44.1 - CHRONIC OBSTRUCTIVE PULMONARY DISEASE W (ACUTE) EXACERBATION (2) Influenza A Current Visit: Yes Status: Acute Assessment & Plan: - Tamiflu held d/t DUNIA - Isolation Code(s): J10.1 - FLU DUE TO OTH IDENT INFLUENZA VIRUS W OTH RESP MANIFEST (3) Acute on chronic renal failure Current Visit: Yes Status: Acute Assessment & Plan: - Creat 2.17- baseline 1.32- improving - IVF - Tele - CMP reviewed - US kidneys: Impression: Abnormal distended urinary bladder. Rule out out obstruction versus neurogenic bladder. Remaining renal sonogram is negative. - Pt reports he used to see Dr. Grimes with urology in the past- has never seen a telephone services sales representative before. - He is not taking any meds for BPH. - post void bladder sacn - Flomax started Code(s): N17.9 - ACUTE KIDNEY FAILURE, UNSPECIFIED; N18.9 - CHRONIC KIDNEY DISEASE, UNSPECIFIED (4) Wound of left foot Current Visit: Yes Status: Acute Assessment & Plan: - podiatry consult - XR Left foot: 3 portable nonweightbearing views left foot again demonstrates osteopenia, remote osteotomies distal shaft 2nd/3rd/4th metatarsals, moderate 1st MTP bunion deformity, 2nd toe amputation, tiny heel spur, and diffuse scattered vascular calcifications. No new/acute bony, articular, or soft tissue abnormalities. Code(s): S91.302A - UNSPECIFIED OPEN WOUND, LEFT FOOT, INITIAL ENCOUNTER (5) Weakness Current Visit: No Status: Acute Assessment & Plan: - PT eval and treat Code(s): R53.1 - WEAKNESS (6) CAD (coronary artery disease) Current Visit: No Status: Chronic Qualifiers: Coronary Disease-Associated Artery/Lesion type: bypass graft [place] vs. transplanted heart: lum[place] heart Associated angina: without angina Qualified Code(s): I25.810 - Atherosclerosis of coronary artery bypass graft(s) without angina pectoris Assessment & Plan: - Continue IV fluids at a low rate due to CHF and risk of volume overload. - Monitor BP. 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: with shelter use Diabetes mellitus complication status: with kidney complications Diabetes mellitus complication detail: with chronic kidney disease Chronic kidney disease stage: stage 3 (moderate) Assessment & Plan: - Accuchecks ac/hs - Humalog s/s and with meals - A1C 7.59- controlled - Consistent carb diet Code(s): E11.9 - TYPE 2 DIABETES MELLITUS WITHOUT COMPLICATIONS - Discharge Discharge Date: 08/05/24 Disposition: Against Medical Advice Condition: Stable Prescriptions: Continue Benazepril HCl [Lotensin] 20 mg PO DAILY Metoprolol Tartrate 25 mg [Lopressor 25MG Tab] 1 tab PO BID Aspirin 81 gm Chew [Baby Aspirin 81 mg Chew] 81 mg PO DAILY Metformin HCl 800 mg PO BID Gabapentin 300 mg PO BID Furosemide 40 mg [Lasix 40 MG] 40 mg PO BID Rosuvastatin Calcium 40 mg PO HS glyBURIDE [Glyburide] 5 mg PO DAILY Nitroglycerin 0.4 mg Tablet [Nitrostat 0.4 MG Tablet] 1 tab PO UD PRN PRN Reason: Chest Pain Loratadine 10 mg [Claritin 10 mg] 10 mg PO DAILY PRN PRN Reason: Allergies Insulin Glargine,Hum.rec.anlog [Basaglar Kwikpen U-100] 70 units SQ DAILY Insulin Aspart [NovoLOG Insulin] 25 units SQ BID Budesonide/Glycopyr/Formoterol [Breztri Aerosphere Inhaler] 2 puffs IH BID Potassium Chloride 8 meq PO BID Empagliflozin [Jardiance] 25 mg PO DAILY Albuterol 2.5 mg/3 ml Neb [Proventil 2.5 mg/3 ml Neb] 2.5 mg IH Q4H PRN PRN Reason: copd Follow up with: JAROD LEWIS [Primary Care Provider] -
== END 2024-08-05 00:48 | disposition left against medical advice (07) ==
LOC: ED 17:29 → MED SURG 21:54
PROVIDERS: ADMIT Internal Medicine; ATTEND Internal Medicine
DX: J44.1 Chronic obstructive pulmonary disease with (acute) exacerbation (principal); J10.1 Influenza due to other identified influenza virus with other respiratory manifestations; N17.9 Acute kidney failure, unspecified; N18.9 Chronic kidney disease, unspecified; S91.302A Unspecified open wound, left foot, initial encounter; R53.1 Weakness; I25.10 Atherosclerotic heart disease of native coronary artery without angina pectoris; E66.9 Obesity, unspecified; E11.9 Type 2 diabetes mellitus without complications; I10 Essential (primary) hypertension; I25.2 Old myocardial infarction; J96.01 Acute respiratory failure with hypoxia; L03.032 Cellulitis of left toe; E11.621 Type 2 diabetes mellitus with foot ulcer; L97.529 Non-pressure chronic ulcer of other part of left foot with unspecified severity; R55 Syncope and collapse; W19.XXXA Unspecified fall, initial encounter; Z95.0 Presence of cardiac pacemaker; Z79.899 Other long term (current) drug therapy
CPT/HCPCS: 0241U; 11042; 36415; 70450; 71250; 72125; 73130; 73630; 76770; 80048; 80053; 82043; 82570; 82947; 83036; 83605; 83735; 83880; 84484; 85025; 85027; 87070; 93005; 93041; 93268; 94640; 94760; 96374; 96375; 97161; 99222; 99285; G0378; Q3014; 87077; 87186; J0696; J1644; J1817; J2405; J2919; J3010; A9270-GY

== ENCOUNTER 2024-10-25 06:04 | Day surgery (SDC) | payer OTHER ==
[2024-10-25] MEDS ORDERED: Xylocaine 1% Vial 30 ML PF IJ ONE (06:24)
[2024-10-25] MEDS ORDERED: Marcaine Mpf 0.5% Vial 30 Ml ONE (06:24)
[2024-10-25 06:34] LABS: Hematocrit 39.1 % (40.1-51.0); Mean Cell Volume 90.7 fL (79.0-92.2); Mean Corpuscular Hemoglobin 30.2 pg (25.7-32.2); Mean Corpuscular Hgb Concent. 33.2 g/dL (32.3-36.5); Mean Platelet Volume 9.6 fL (9.4-12.4); Platelet Count 256 x10^3/uL (163-337); Red Blood Count 4.31 x10^6/uL (4.63-6.08); Red Cell Distribution Width 12.9 % (11.6-14.4); White Blood Count 8.4 x10^3/uL (4.23-9.07)
[2024-10-25] MEDS: CEFAZOLIN 2 GM/100 ML NaCl 2 GM/100 ML IVPB IV SCH (06:36)
[2024-10-25] MEDS: Lactated Ringers 1,000 ML IV SCH (06:36)
[2024-10-25 06:47] LABS: ANION GAP 14.9 MEQ/L (5-15); BILIRUBIN,TOTAL 0.7 mg/dL (0.2-1.3); Calcium 9.1 mg/dL (8.4-10.2); Creatinine 1 1.37 mg/dL (0.66-1.25); EST GLOMERULAR FILTRATION RATE 54.5 ML/MIN; Potassium 3.6 mmol/L (3.5-5.1); Total Protein 7.1 g/dL (6.3-8.2)
[2024-10-25] MEDS ORDERED: Versed 2 MG/2 ML Injection ONE (07:06)
[2024-10-25] MEDS ORDERED: SUBLIMAZE 100 MCG/2 ML ONE (07:06)
[2024-10-25] MEDS ORDERED: propofoL IV ONE (07:06)
[2024-10-25] MEDS ORDERED: Xylocaine-Mpf 2% 5 Ml Vial ONE (07:06)
[2024-10-25] MEDS ORDERED: Sodium Chloride 0.9% 1000 ML 1,000 ML ONE (07:16)
[2024-10-25 08:20] VITALS: RESP 18
[2024-10-25 08:25] VITALS: BP 139/71; PULSE 70; O2SAT 99
[2024-10-25 08:29] VITALS: TEMP 97.1
--- NOTE | 2024-10-26 11:14 | OP ---
SURGERY DATE/TIME: 10/25/2024 [id number] PREOPERATIVE DIAGNOSES: 1) Osteomyelitis of distal phalanx, right hallux. 2) Diabetic foot ulcer. 3) Controlled diabetes mellitus. 4) Peripheral neuropathy. 5) Right foot pain. POSTOPERATIVE DIAGNOSES: 1) Osteomyelitis of distal phalanx, right hallux. 2) Diabetic foot ulcer. 3) Controlled diabetes mellitus. 4) Peripheral neuropathy. 5) Right foot pain. PROCEDURE: Amputation of right hallux, disarticulation at level of metatarsophalangeal joint. SURGEON: Chetan Black DPM DREDGE MECHANIC: [employer] [place] ANESTHESIA: Monitored anesthesia care with intraoperative Kohler block. HEMOSTASIS: Pressure dressing. ESTIMATED BLOOD LOSS: Approximately 10 mL. MATERIALS: 4-0 Monocryl, 3-0 nylon. INJECTABLES: 10 mL of 1:1 mixture of 1% lidocaine plain and 0.5% bupivacaine plain injected in a Kohler block-type fashion. INDICATIONS: The patient is a very pleasant 74-year-old male, very well known to my service for multiple ulcerations from which he has recovered with minimal need for limb loss. From that standpoint, the patient presented with a 3-week history of an ulceration at the distal tip of the toe with redness, swelling, and crepitation underneath the surface of the skin. X-rays were taken demonstrating osteomyelitis to the distal phalanx. Options were presented to the patient regarding options with wound care and IV antibiotics versus amputation. At this time, the patient has opted for amputation of the right hallux. He currently denies any constitutional symptoms of infection. He has been made aware of all risks, complications, and benefits of surgical intervention, including but not limited to infection, hematoma, seroma, possibility of delayed wound healing, non-wound healing, and possible need for further surgical intervention at a later date. No guarantees were provided as to the outcome. Plenty of time was allowed for the patient to ask questions, which were answered to his apparent satisfaction. It is at this time we decided to proceed. DESCRIPTION OF PROCEDURE AND FINDINGS: The patient was brought into the operating room and placed on the operating room table in the supine position. At this time, monitored anesthesia care was administered until the patient was adequately sedated. Once the patient was sedated, the right lower extremity was prepped and draped in a typical sterile fashion and lowered onto the surgical field. At this time, a skin marker was utilized to draw a medial racquet incision around the metatarsophalangeal joint and dorsal and plantar of the proximal phalanx. At this time, a 10 mL injection of a 1:1 mixture of 1% lidocaine plain and 0.5% bupivacaine plain was injected in a Kohler block-type fashion. Once this was performed, a 10-blade was utilized with an incision down to the level of bone, disarticulating the first metatarsophalangeal joint, making full-thickness flaps. After this, 1 L of sterile saline under pulse lavage was utilized to flush the surgical site. Then, 4-0 Monocryl was utilized to coapt the subcutaneous skin edges in simple buried interrupted-type fashion; 3-0 nylon was utilized in a horizontal mattress-type fashion to coapt the skin edges. Following this, a dressing consisting of Betadine, Adaptic, 4 x 4, Kerlix, ABD, and GABE was applied to the patient's right lower extremity. The patient was reversed from anesthesia and returned to the postoperative anesthesia care unit with vital signs stable and vascular status intact. The patient handled the anesthesia as well as the procedure without significant complication. Postoperative orders as indicated in the patient's discharge chart
== END 2024-10-25 08:44 | disposition home or self-care (01) ==
LOC: SDC 06:04
PROVIDERS: ATTEND Podiatrist Foot & Ankle Surgery
DX: M86.9 Osteomyelitis, unspecified (principal); E11.621 Type 2 diabetes mellitus with foot ulcer; E11.9 Type 2 diabetes mellitus without complications; E11.42 Type 2 diabetes mellitus with diabetic polyneuropathy; M79.671 Pain in right foot
CPT/HCPCS: 28820; 36415; 80053; 82947; 85027; J0690; J2250; J2704; J3010